=== PATIENT | female | born 1950 | race Hispanic/Latino ===

== ENCOUNTER 2020-06-26 11:14 | Inpatient (IN) | payer MEDICARE, BC, OTHER ==
[2020-06-26] VITALS (13 sets, daily range): BP systolic 100–152; BP diastolic 46–71
[~2020-06-26] VITALS: Ht 162.6 cm; Wt 66.2 kg
[~2020-06-26 11:14] MED LIST: Z.0.AZOR 10-40 MG1 E; Z.0.JANUMET 50-1,01; Z.0.METOPROLOL SUCC5; Z.0.PHENERGAN25 M1; Z.0.VICTOZA 2-0.6 MG
[2020-06-26 11:52] LABS: BASOPHILS % 0.1 % (0.0-1.0); LYMPHOCYTES # (AUTO) 0.5 (1.0-3.2); LYMPHOCYTES % 5.6 % (18.0-39.1); MEAN CORPUSCULAR HGB CONC 31.3 g/dL (31-35); MONOCYTES # (AUTO) 0.4 (0.2-0.8); MONOCYTES % 4.1 % (4.4-11.3); NEUTROPHILS # (AUTO) 7.8 (2.1-6.9); NEUTROPHILS % 89.6 % (38.7-80.0); PLATELET COUNT 168 x10e3/uL (140-360); RED CELL DISTRIBUTION WIDTH 17.3 % (11.7-14.4)
[2020-06-26 11:57] LABS: HEMATOCRIT 12.8 % (34.2-44.1)
[2020-06-26] MEDS ORDERED: SODIUM CHLORIDE 0.9% 250ML 250 ML IV ONE (12:00)
[2020-06-26] MEDS ORDERED: FUROSEMIDE INJ 10 MG/ML 2 ML VIAL IV PRN (12:00)
[2020-06-26] MEDS ORDERED: OCTREOTIDE ACETATE 0.05 MG/ML AMP IV STA (12:00)
--- OUTSIDE RECORDS SUMMARY | 2020-06-26 12:11 | XMS REPORT | Continuity of Care Document ---
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 Ordering Clinician Indication Dosage Frequency Signature (SIG) Comments Components Source sitaGLIPtin-metformin (JANUMET) 50-1,000 mg per tablet 2017-04-14 17:07:24 Yes 1{tbl} Q.5D Take 1 tablet by mouth 2 (two) times a d ay with meals. Binh Langley insulin GLARGINE (LANTUS) 100 unit/mL injection (vial) 2017-04-14 17:07:24 Yes 16U QD Inject 16 Units under the skin nightly. Binh Langley aspirin (ECOTRIN) 81 MG enteric coated tablet 2017-04-14 17:07:2 4 Yes 81mg Q48H Take 81 mg by mouth every other day. Binh Langley Procedures This patient has no known procedures. Plan of Care Planned Activity Planned Date Details Comments Source Future Scheduled Test 2020-06-22 00:00:00 INFLUENZA VACCINE [code = INFLUENZA VACCINE] [facility] Scheduled Test 2013 00:00:00 65+ PNEUMOCOCCAL V ACCINE (1 of 2 - PCV13) [code = 65+ PNEUMOCOCCAL VACCINE (1 of 2 - PCV13)] [facility] Future Scheduled Test 1998 00:00:00 BREAST CANCER SCRE ENING [code = BREAST CANCER SCREENING] [facility] Future Scheduled Test 1998 00:00:00 COLONOSCOPY SCREEN ING [code = COLONOSCOPY SCREENING] [facility] Scheduled Test 1998 00:00:00 SHINGLES VACCINES (#1) [code = SHINGLES VACCINES (#1)] Binh Langley Results This patient has no known results.
--- OUTSIDE RECORDS SUMMARY | 2020-06-26 12:11 | XMS REPORT | Clinical Summary ---
Author Author [facility] Organization [facility] Address Unknown Phone Unavailable Care Team Providers Care Claim Technician Name Role Phone Valentine Dunbar MD PCP Allergies No Known Allergies Medications End Date Status Medication Sig Dispensed Refills Start Date Active sitaGLIPtin-metformin Take 1 tablet 0 (JANUMET) 50-1,000 mg per by mouth 2 tablet (two) times a day with meals. Active insulin GLARGINE (LANTUS) Inject 16 0 100 unit/mL injection Units under (vial) the skin nightly. Active aspirin (ECOTRIN) 81 MG Take 81 mg by 0 enteric coated tablet mouth every other day. Active Problems Problem Noted Date Hypertensive urgency 04/09/2017 Hypertensive urgency, malignant 04/08/2017 Social History Date Tobacco Use Types Packs/Day Years Used Never Smoker Drinks/Week oz/Week Comments Alcohol Use No Sex Assigned at Date Recorded Not on file Industry Job Start Date Occupation Not on file Not on file Not on file Travel End Travel History Travel Start No recent travel history available. Last Filed Vital Signs Not on file Plan of Treatment Health Maintenance Due Date Last Done Comments BREAST CANCER SCREENING 1998 COLONOSCOPY SCREENING 1998 SHINGLES VACCINES (#1) 1998 65+ PNEUMOCOCCAL VACCINE 2013 (1 of 2 - PCV13) INFLUENZA VACCINE 06/22/2020 Results Not on fileafter 06/26/2019 Insurance Type Payer Benefit Subscriber ID Effective Phone Address Plan / Dates Group Medicare MEDICARE MEDICARE xxxxxxxxxx 2013- [place], PART A AND Present [place] B PPO BCBS BCBS xxxxxxxxxxxx 2014- CHOICE Present PPO/AMANDA BLANTON PPO [id number] Advance Directives For more information, please contact: [phone] 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
[2020-06-26 12:14] LABS: CLARITY,URINE SL CLOUDY (CLEAR); COLOR,URINE YELLOW (YELLOW); LEUKOCYTE ESTERASE ,URINE NEGATIVE (NEGATIVE); NITRITE,URINE NEGATIVE (NEGATIVE)
[2020-06-26 12:15] LABS: BACTERIA,URINE RARE /HPF; BILIRUBIN,URINE NEGATIVE (NEGATIVE); EPITHELIAL CELLS,URINE FEW /LPF; KETONES,URINE TRACE (NEGATIVE); PROTEIN,URINE DIPSTICK >=300 (NEGATIVE); RBC,URINE 0-5 /HPF (0-5); URINE UROBILINOGEN 0.2 mg/dL (0.2 - 1); WBC,URINE (MAN) 0-5 /HPF (0-5)
[2020-06-26 12:15] LABS: INR 1.17; PROTHROMBIN TIME 15.6 seconds (11.9-14.5)
[2020-06-26 12:16] LABS: PARTIAL THROMBOPLASTIN TIME 41.3 seconds (23.8-35.5)
--- NOTE | 2020-06-26 12:26 | Diagnostic Imaging Report ---
EXAMINATION: CHEST SINGLE (PORTABLE) INDICATION: GI bleed, weakness COMPARISON: None FINDINGS: LINES/TUBES:EKG leads overlie the chest. LUNGS:The lungs are moderately inflated. There is perihilar fullness and indistinctness of the pulmonary vasculature. No focal consolidation or pulmonary edema. PLEURA:No pleural effusion or pneumothorax. MEDIASTINUM:The heart is enlarged. Atherosclerotic calcifications of the thoracic aorta. BONES/SOFT TISSUES:No acute osseous injury. ABDOMEN:No free air under the diaphragm. IMPRESSION: Cardiomegaly and central pulmonary vascular congestion. Signed by: Rosi Tellez MD on 06/26/2020 12:23 PM
[2020-06-26 12:30] LABS: ALBUMIN 2.6 g/dL (3.5-5.0); ALBUMIN/GLOBULIN RATIO 0.9 (0.8-2.0); ANION GAP 22.3 mmol/L (8-16); CALCIUM 8.1 mg/dL (8.4-10.2); CREATININE, SERUM 4.14 mg/dL (0.57-1.11)
[2020-06-26] MEDS ORDERED: PANTOPRAZOLE 40 MG 10ML VIAL IV ONE (12:30)
[2020-06-26 12:36] LABS: CREATINE KINASE MB 1.9 ng/mL (0-5.0)
[2020-06-26 12:40] LABS: POTASSIUM 6.3 mmol/L (3.5-5.1)
[2020-06-26] MEDS: OCTREOTIDE ACETATE 500 MCG in SODIUM CHLORIDE 0.9% 250ML 249 ML IV SCH ×2 (12:41→22:31)
--- NOTE | 2020-06-26 12:42 | Emergency Department Note ---
History of Present Illnes History of Present Illness Chief Complaint: Abdominal Complaints History of Present Illness This is a 69 year old female WEAK X ONE DAY. EMS REPORTS STOOL ALL OVER THE HOUSE. PT IS ON BLOOD THINNERS AND BLOOD NOTED IN TOILET. 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 Any updates have been documented here. Past Medical History Recent Fever: No Clinical Suspicion of Infectio: No New/Unexplained Change in Ment: No Past Medical History: Hypertension, Diabetes Social History Smoking Cessation: Never Smoker Counseling Performed: No Alcohol Use: None Any Illegal Drug Use: No TB Exposure/Symptoms: No Physically hurt or threatened: No Family History Family history of heart diseas: No Other Any Pre-Existing Lines (PICC,: No Review of Systems Review of Systems Constitutional: Reports no symptoms EENTM: Reports no symptoms Cardiovascular: Reports no symptoms Respiratory: Reports no symptoms Gastrointestinal: Reports as per HPI Genitourinary: Reports no symptoms Musculoskeletal: Reports no symptoms Integumentary: Reports no symptoms Neurological: Reports no symptoms Psychological: Reports no symptoms Endocrine: Reports no symptoms Hematological/Lymphatic: Reports no symptoms Physical Exam Related Data Allergies: Uncoded Allergies: NKDA (Allergy, Mild, 12/19/09) Triage Vital Signs Vital Signs Date Time Temp Pulse Resp B/P (MAP) Pulse Ox O2 Delivery O2 Flow Rate FiO2 06/26/20 11:16 97.5 104 18 168/93 100 Room Air 06/26/20 12:11 2.0 Vital signs reviewed: Yes Physical Exam CONSTITUTIONAL Constitutional: Present well-developed, Present well-nourished HENT HENT: Present normocephalic, Present atraumatic, Present oropharynx clear/moist, Present nose normal HENT L/R: Present left ext ear normal, Present right ext ear normal EYES Eyes: Reports PERRL, Reports conjunctivae normal NECK Neck: Present ROM normal PULMONARY Pulmonary: Present effort normal, Present breath sounds normal CARDIOVASCULAR Cardiovascular: Present regular rhythm, Present heart sounds normal, Present capillary refill normal, Present normal rate GASTROINTESTINAL Abdominal: Present soft, Present nontender, Present bowel sounds normal GENITOURINARY Genitourinary: Present exam deferred SKIN Skin: Present warm, Present pale MUSCULOSKELETAL Musculoskeletal: Present ROM normal NEUROLOGICAL Neurological: Present alert, Present oriented x 3, Present no gross motor or sensory deficits PSYCHOLOGICAL Psychological: Present mood/affect normal, Present judgement normal Results Laboratory Result Diagram: 06/26/20 1135 Laboratory Laboratory Tests Test 06/26/20 12:01 06/26/20 11:35 Urine Color Yellow (YELLOW) Urine Clarity Sl cloudy (CLEAR) Urine pH 5.5 (5 - 7) Urine Specific [place] 1.020 (1.010-1.025) Urine Protein >=300 (NEGATIVE) Urine Glucose (UA) Negative (NEGATIVE) Urine Ketones Trace (NEGATIVE) Urine Blood Negative (NEGATIVE) Urine Nitrite Negative (NEGATIVE) Urine Bilirubin Negative (NEGATIVE) Urine Urobilinogen 0.2 mg/dL (0.2 - 1) Urine Leukocyte Esterase Negative (NEGATIVE) Urine RBC 0-5 /HPF (0-5) Urine WBC 0-5 /HPF (0-5) Urine Epithelial Cells Few /LPF (NONE) Urine Bacteria Rare /HPF (NONE) White Blood Count 8.70 x10e3/uL (4.8-10.8) Red Blood Count 1.60 x10e6/uL (3.6-5.1) Hemoglobin 4.0 g/dL (12.0-16.0) Hematocrit 12.8 % (34.2-44.1) Mean Corpuscular Volume 80.0 fL (81-99) Mean Corpuscular Hemoglobin 25.0 pg (28-32) Mean Corpuscular Hemoglobin Concent 31.3 g/dL (31-35) Red Cell Distribution Width 17.3 % (11.7-14.4) Platelet Count 168 x10e3/uL (140-360) Neutrophils (%) (Auto) 89.6 % (38.7-80.0) Lymphocytes (%) (Auto) 5.6 % (18.0-39.1) Monocytes (%) (Auto) 4.1 % (4.4-11.3) Eosinophils (%) (Auto) 0.0 % (0.0-6.0) Basophils (%) (Auto) 0.1 % (0.0-1.0) Neutrophils # (Auto) 7.8 (2.1-6.9) Lymphocytes # (Auto) 0.5 (1.0-3.2) Monocytes # (Auto) 0.4 (0.2-0.8) Eosinophils # (Auto) 0.0 (0.0-0.4) Basophils # (Auto) 0.0 (0.0-0.1) Absolute Immature Granulocyte (auto 0.05 x10e3/uL (0-0.1) Prothrombin Time 15.6 seconds (11.9-14.5) Prothromb Time International Ratio 1.17 Activated Partial Thromboplast Time 41.3 seconds (23.8-35.5) Lab results reviewed: Yes Imaging Imaging results reviewed: Yes Procedures 12 Lead ECG Interpretation ECG Interpretation : ECG: ECG 1 Maitre D: Interpreted by ED physician Date: Jun 26, 2020 Time: 11:40 Rhythm: sinus rhythm Rate: normal (93) ST segments normal: Yes T waves normal: Yes Clinical Impression: non-specific ECG Critical Care Time Total Critical Care Time (min): 35 Critical care time exclusive o: separately billable procedures Critcal care necessary due to: circulatory failure Critcal care time spent by me: discussion w consultants, discussion w primary provider, evaluation patient response to tx, order/perform tx or interventions, order/review laboratory studies, order/review radiographic studies, re- evaluation of patient condition Assessment & Plan Medical Decision Making MDM REPORTED GI BLEED - CHECK CBC, CHEM, PT/PTT, ECG, CARDIACS - EVAL ANEMIA, ELECTROLYTE ABNL, RENAL INSUFF, COAGULOPATHY, STEMI/NSTEMI Reassessment Reassessment IVF RESUSCITATION, PROTONIX, OCTREOTIDE ADMIT TO [facility], SPOKE WITH DR Levi BARRY ALSO CHEM'S WITH ARF, HYPERKALEMIA, ACIDOSIS - CALCIUM/BICARB/INSULIN/GLUCOSE ORDERED , BICARB DRIP ORDERED. I SPOKE WITH DR Jenise ADDISON WHO WANTS IR TO PLACE HD CATH FOR EMERGENT HD Assessment & Plan Final Impression: (1) GI bleed (2) Renal failure (3) Hyperkalemia Depart Disposition: ADMITTED Last Vital Signs Date Time Temp Pulse Resp B/P (MAP) Pulse Ox O2 Delivery O2 Flow Rate FiO2 8/5/20 12:11 92 22 112/55 100 Nasal Cannula 2.0 06/26/20 11:46 98.7 Home Meds Reported Medications Liraglutide (Victoza 2-Robert) 0.6 Mg/0.1 Ml Pen.injctr, HS 08/09/11 Sitagliptin Phos/Metformin Hcl (Janumet 50-1,000 Mg Tablet) 1 Each Tablet, BID 08/09/11 Promethazine Hcl (Phenergan) 25 Mg Tablet, PRN 08/09/11 Metoprolol Succinate (Metoprolol Succinate) 50 Mg Tab.sr.24h, BID 08/09/11 Amlodipine Bes/Olmesartan Med (Amanda 10-40 Mg Tablet) 1 Each Tablet, QD 08/09/11 Medications in the ED Pantoprazole Sodium 80 mg ONCE ONCE IV Last administered on 06/26/20at 12:31; Admin Dose 80 MG; Start 06/26/20 at 12:30; Stop 06/26/20 at 12:31; Status DC Octreotide Acetate 0.05 mg ONCE STAT IV Last administered on 06/26/20at 12:32; Admin Dose 0.05 MG; Start 06/26/20 at 12:00; Stop 06/26/20 at 12:03; Status DC Octreotide Acetate 500 mcg/ Sodium Chloride 250 ml @ 25 mls/hr Q10H IV ; Start 06/26/20 at 12:00; Stop 07/26/20 at 11:59 Sodium Chloride 250 ml @ 0 mls/hr ONCE ONCE IV ; Start 06/26/20 at 12:00; Stop 06/26/20 at 12:03; Status DC Furosemide 20 mg UD PRN IV SHORTNESS OF BREATH; Start 06/26/20 at 12:00; Stop 07/26/20 at 11:59 Pantoprazole Sodium 40 mg Q12HR IV ; Start 06/26/20 at 21:00; Stop 07/26/20 at 20:59; Status LUCY HERNANDEZ MD Jun 26, 2020 12:42
[2020-06-26] MEDS ORDERED: DEXTROSE 50% SYRINGE 50 ML IV STA (12:43)
[2020-06-26] MEDS ORDERED: SODIUM BICARBONATE 8.4% INJ 50 ML SYR IV STA (12:43)
--- OUTSIDE RECORDS SUMMARY | 2020-06-26 12:43 | XMS REPORT | Clinical Summary ---
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
--- OUTSIDE RECORDS SUMMARY | 2020-06-26 12:43 | XMS REPORT | Continuity of Care Document ---
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 [place] [employer] aspirin (ECOTRIN) 81 MG enteric coated tablet 2017-04-14 17:07:2 4 Yes 81mg Q48H Take 81 mg by mouth every other day. Binh Langley Procedures This patient has no known procedures. Plan of Care Planned Activity Planned Date Details Comments Source Future Scheduled Test 2020-06-22 00:00:00 INFLUENZA VACCINE [code = INFLUENZA VACCINE] [facility] Future Scheduled Test 2013 00:00:00 65+ PNEUMOCOCCAL V ACCINE (1 of 2 - PCV13) [code = 65+ PNEUMOCOCCAL VACCINE (1 of 2 - PCV13)] [facility] Future Scheduled Test 1998 00:00:00 BREAST CANCER SCRE ENING [code = BREAST CANCER SCREENING] [facility] Future Scheduled Test 1998 00:00:00 COLONOSCOPY SCREEN ING [code = COLONOSCOPY SCREENING] [facility] Future Scheduled Test 1998 00:00:00 SHINGLES VACCINES (#1) [code = SHINGLES VACCINES (#1)] [facility] Results Test Description Test Time Test Comments Results Result Comments Source CHEST SINGLE (PORTABLE) 2020-06-26 12:21:00 [place] [address] Patient Name: RICARDO MARTIN MR #: [id number] : 1950 Age/Sex: 69/F Req #: [id number] Adm Physician: Ordered by: LUCY TREVINO MD Report #: [id number] Location: ER Room/Bed: Procedure: [id number] DX/CHEST SINGLE (PORTABLE) Exam Date: Exam Time: REPORT STATUS: Signed EXAMINATION: CHEST SINGLE (PORTABLE) INDICATION: GI bleed, weakness COMPARISON: None FINDINGS: LINES/TUBES:EKG leads overlie the chest. LUNGS:The lungs are moderately inflated. There is perihilar fullness and indistinctness of the pulmonary vasculature. No focal consolidation or pulmonary edema. PLEURA:No pleural effusion or pneumothorax. MEDIASTINUM:The heart is enlarged. Atherosclerotic calcifications of the thoracic aorta. BONES/SOFT TISSUES:No acute osseous injury. ABDOMEN:No free air under the diaphragm. IMPRESSION: Cardiomegaly and central pulmonary vascular congestion. Signed by: Amy Grier MD on 06/26/2020 12:23 PM Dictated By: AMY GRIER MD 1223 Transcribed By: RODOLFO on 06/26/20 1223 COPY TO: LUCY TREVINO MD
[2020-06-26] MEDS ORDERED: INSULIN REGULAR, HUMAN 100 UNIT/1 ML 3ML VIAL IV ONE (12:45)
[2020-06-26] MEDS ORDERED: ONDANSETRON HCL INJ 2MG/ML 2ML 2 MG/ML VIAL IV STA (12:46)
[2020-06-26] MEDS ORDERED: ONDANSETRON HCL INJ 2MG/ML 2ML 2 MG/ML VIAL IV PRN (13:00)
[2020-06-26] MEDS ORDERED: CALCIUM GLUCONATE 10% INJ 4.65 MEQ in SODIUM CHLORIDE 0.9% 50ML 50 ML IV ONE ×2 (13:15→18:45)
[2020-06-26] MEDS ORDERED: DEXTROSE IV ONE (14:00)
[2020-06-26] MEDS ORDERED: LACTATED RINGERS IV ONE (14:00)
[2020-06-26] MEDS ORDERED: SODIUM BICARBONATE 8.4% IV ONE (14:00)
--- NOTE | 2020-06-26 14:30 | NUR ---
Dr Vieira spoke to patient regarding dialysis, patient agreed to dialysis and insertion of temporary dialysis catheter. Per MD, hold off on blood until dialysis is started.
[2020-06-26] MEDS ORDERED: SODIUM CHLORIDE 0.9% 250ML 250 ML ONE ×2 (16:47→22:22)
--- NOTE | 2020-06-26 17:33 | Diagnostic Imaging Report ---
Examination: Single AP view of the chest. COMPARISON: 06/26/2020 INDICATION: Line placement DISCUSSION: Lines/tubes: Right IJ central venous catheter with tip over the SVC. Lungs: Pulmonary venous congestion, increased. Pleura: No pleural effusion or pneumothorax. Heart and mediastinum: Cardiomegaly. Bones and soft tissues: No acute bony abnormalities. IMPRESSION: 1. Cardiomegaly with pulmonary venous congestion, increased 2. Right IJ catheter with tip over the low SVC. Signed by: Dr. Deepak Sparrow M.D. on 06/26/2020 5:29 PM
[2020-06-26 17:55] LABS: CREATINE KINASE MB 2.6 ng/mL (0-5.0)
--- NOTE | 2020-06-26 18:04 | Operative Report ---
DATE OF PROCEDURE: SURGEON: Donald Levy MD PROCEDURE: Trialysis catheter placement under ultrasound guidance. PREOPERATIVE DIAGNOSIS: Acute renal failure. POSTOPERATIVE DIAGNOSIS: Acute renal failure. CONSENT: Consent was obtained from the patient. MEDICATIONS: 1% lidocaine for local anesthesia. DESCRIPTION OF PROCEDURE: The patient was placed in a supine position. The right neck was prepped sterilely with chlorhexidine. 1% lidocaine was used to anesthetize the area between the heads of the sternocleidomastoid. A full length sterile drape, sterile gown, and sterile gloves were used. A 16-gauge needle was used to cannulate the right internal jugular vein under direct visualization. A wire was then passed through the needle. A series of dilators were used to open the skin. A Trialysis catheter was placed over the wire by the Seldinger technique. All the ports flushed. COMPLICATIONS: None. ESTIMATED BLOOD LOSS: None. Donald Levy MD [facility] /[id number]
[2020-06-26 18:12] LABS: BASOPHILS % 0.1 % (0.0-1.0); EOSINOPHILS % 0.1 % (0.0-6.0); LYMPHOCYTES # (AUTO) 0.7 (1.0-3.2); LYMPHOCYTES % 7.8 % (18.0-39.1); MEAN CORPUSCULAR HEMOGLOBIN 23.9 pg (28-32); MEAN CORPUSCULAR HGB CONC 28.1 g/dL (31-35); MEAN CORPUSCULAR VOLUME 85.1 fL (81-99); MONOCYTES # (AUTO) 0.6 (0.2-0.8); MONOCYTES % 7.1 % (4.4-11.3); NEUTROPHILS # (AUTO) 7.7 (2.1-6.9); NEUTROPHILS % 84.3 % (38.7-80.0); PLATELET COUNT 136 x10e3/uL (140-360); RED BLOOD COUNT 1.34 x10e6/uL (3.6-5.1); RED CELL DISTRIBUTION WIDTH 17.8 % (11.7-14.4)
[2020-06-26 18:14] LABS: HEMATOCRIT 11.4 % (34.2-44.1); HEMOGLOBIN 3.2 g/dL (12.0-16.0)
--- NOTE | 2020-06-26 18:15 | NUR ---
Blood pressure called to Dr Vieira, per , angie to wait until dialysis for blood administration. Reinforced current hemoglobin reinforced with MD and potassium level, new orders received.
[2020-06-26] MEDS ORDERED: SODIUM BICARBONATE 8.4% 150 ML in DEXTROSE 5% 1,000 ML IV SCH (18:30)
--- NOTE | 2020-06-26 18:30 | NUR ---
CBC results called to Dr Vieira, blood started at this time.
[2020-06-26] MEDS ORDERED: DEXTROSE 50% SYRINGE 50 ML IV SCH (18:45)
[2020-06-26] MEDS ORDERED: INSULIN REGULAR, HUMAN 100 UNIT/1 ML 3ML VIAL IV SCH (18:45)
--- NOTE | 2020-06-26 18:45 | NUR ---
Temperature of 100.1 noted after initial 15 minutes of blood administration. Dr Levy notified. Blood stopped, bag and tubing sent to lab. Fluids running at this time. Patient shows no s/s distress or pain, no SOB, no itching and no hives.
[2020-06-26] MEDS ORDERED: SODIUM CHLORIDE 0.9% 1000ML 1,000 ML ONE (18:58)
[2020-06-26] MEDS ORDERED: SODIUM CHLORIDE 0.9% 1000ML 2,000 ML ONE (19:17)
[2020-06-26] MEDS ORDERED: HEPARIN SOD (PORCINE) 1000 UNIT/ML SDV IV PRN (19:30)
[2020-06-26] MEDS ORDERED: SODIUM CHLORIDE 0.9% 1000ML 2,000 ML IV PRN (19:30)
[2020-06-26] MEDS ORDERED: ACETAMINOPHEN 325 MG TAB PO SCH (20:15)
[2020-06-26] MEDS ORDERED: DIPHENHYDRAMINE HCL 25 MG CAP PO SCH (20:15)
[2020-06-26] MEDS ORDERED: DIPHENHYDRAMINE HCL INJ 50 MG/ML VIAL IV PRN (20:30)
[2020-06-26] MEDS ORDERED: ACETAMINOPHEN 325 MG TAB PO PRN (20:30)
[2020-06-26] MEDS ORDERED: HYDROCORTISONE SOD SUCCINATE 100 MG VIAL IV SCH (21:00)
[2020-06-26] MEDS: SODIUM BICARBONATE 8.4% 150 ML in DEXTROSE 5% 1,000 ML IV SCH (21:16)
[2020-06-26 22:18] LABS: CREATINE KINASE MB 2.7 ng/mL (0-5.0)
[2020-06-26 22:20] LABS: FERRITIN 53.32 ng/mL (4.63-204.00)
[2020-06-26] MEDS ORDERED: OCTREOTIDE ACETATE 1 ML ONE (22:21)
[2020-06-26] MEDS: PANTOPRAZOLE 40 MG 10ML VIAL IV SCH (22:30)
[2020-06-26] MEDS ORDERED: CYANOCOBALAMIN INJ 1,000 MCG/ML VIAL IM ONE (22:45)
[2020-06-27] VITALS (26 sets, daily range): BP systolic 99–223; BP diastolic 52–106
--- NOTE | 2020-06-27 00:10 | Consultation ---
DATE OF CONSULTATION: 06/26/2020 LOCATION: ICU. HISTORY: Predominantly from chart, electronic records, and ER communication. This is a 69-year-old lady, very poor historian, currently lying supine, she looks very ill, tired, looks pale. She is not in any respiratory distress, but having a lot of dry heaves. I asked several questions, she does not remember her PCP, she does not give me any history whether she is having any black stools, hematemesis or melena, she denies being short of breath, she denies any abdominal pain, she does admit she has diabetes, she does not remember what medication she takes, denies any cardiac history or any kidney disorder. On review of records, the patient does take sitagliptin, metformin at home. She also on promethazine, metoprolol, Victoza, and amlodipine, Olmesartan at home. Now, according to the patient's friend, the patient has not been eating or drinking for the last several days, so unclear whether she has taken any of these medications. Her Renal has been consulted because of significantly abnormal labs with life-threatening hyperkalemia. LABORATORY DATA: Most recent labs shows CBC; white count 8.7, hemoglobin 4, platelets of 168. Chemistry shows sodium of 137, potassium 6.3, chloride 107, bicarbonate 14, BUN 76 and creatinine 4.14, glucose 145, calcium 8.1, anion gap is 22.3, total bilirubin 0.4. LFTs normal. Troponin I 0.032. Urinalysis specific gravity 1.020, dipstick positive protein, 0-5 rbc, 0-5 wbc count. Coronavirus test is pending. She had a chest x-ray done. Please see official report. SOCIAL HISTORY: The patient denies smoking or alcohol use. FAMILY HISTORY: Significant for diabetes. PHYSICAL EXAMINATION: GENERAL: Awake, alert, and oriented, lying supine, appears quite weak and tired and as described above. VITAL SIGNS: Blood pressure 126/53, pulse rate 93, afebrile. Oxygen saturation 92% on room air. HEAD AND NECK: Cornea clear. Mucosa dry. Neck veins flat. LUNGS: Relatively clear. HEART: S1 and S2 audible. ABDOMEN: Soft and nontender. EXTREMITIES: Lower extremities, no edema. IMPRESSION: Severe metabolic acidosis, elevated anion gap. Blood sugar 145. Therapeutically, the patient on olmesartan as well as Januvia and metformin at home, all of which could give rise to her condition here. Diabetic ketoacidosis should be ruled out. Has most likely gastrointestinal bleed, hemolysis extremely unlikely giving LFTs. I will consult GI. Acute kidney injury, most likely due to dehydration and GI bleed and drop in hemoglobin. PLAN: To give dextrose insulin, calcium, starting IV bicarbonate and obtain serum ketone, stat. We will obtain lactic acid. Start IV bicarbonate. Transfuse 3 units of packed RBC with dialysis. Once dialysis catheter was placed, dialysis nurse notified. Discussed with bedside RN. Please see orders. MD ALISA [facility]/MOD[facility] /[id number]
[2020-06-27 02:15] LABS: BASOPHILS % 0.1 % (0.0-1.0); EOSINOPHILS % 0.3 % (0.0-6.0); LYMPHOCYTES % 8.7 % (18.0-39.1); MEAN CORPUSCULAR HEMOGLOBIN 27.1 pg (28-32); MEAN CORPUSCULAR HGB CONC 33.1 g/dL (31-35); MEAN CORPUSCULAR VOLUME 81.9 fL (81-99); MONOCYTES # (AUTO) 0.7 (0.2-0.8); MONOCYTES % 6.4 % (4.4-11.3); NEUTROPHILS # (AUTO) 9.3 (2.1-6.9); NEUTROPHILS % 83.8 % (38.7-80.0); PLATELET COUNT 126 x10e3/uL (140-360); RED CELL DISTRIBUTION WIDTH 15.9 % (11.7-14.4)
[2020-06-27 02:25] LABS: HEMATOCRIT 17.2 % (34.2-44.1); HEMOGLOBIN 5.7 g/dL (12.0-16.0)
[2020-06-27 02:32] LABS: ALBUMIN 2.2 g/dL (3.5-5.0); ALBUMIN/GLOBULIN RATIO 0.9 (0.8-2.0); ANION GAP 20.1 mmol/L (8-16); CREATININE, SERUM 2.41 mg/dL (0.57-1.11); POTASSIUM 4.1 mmol/L (3.5-5.1)
[2020-06-27 02:38] LABS: CREATINE KINASE MB 2.1 ng/mL (0-5.0)
[2020-06-27 02:50] LABS: MAGNESIUM 1.7 MG/DL (1.3-2.1)
--- NOTE | 2020-06-27 04:06 | History and Physical ---
DATE OF SERVICE: 06/26/2020. PRIMARY CARE PHYSICIAN: None listed. CONSULTING PHYSICIANS: 1. Dr. Anup Vieira with Nephrology. 2. Dr. Donald Levy with Pulmonology/Critical Care Medicine. 3. Dr. Escobar Suazo with Gastroenterology. Per emergency department records. CHIEF COMPLAINT: Abdominal pain. HISTORY OF PRESENT ILLNESS: The patient is a 69-year-old female, who presented to the emergency department with reports from emergency medical services of "stool all over the house" being on blood thinners with blood noted in the toilet, and a very poor historian. The patient denied any shortness of breath or abdominal pain today. There are reports of poor oral intake, past few days at home, not eating or drinking. She admitted with a very low hemoglobin of 4.0 and had a fever with the first of 2 units of PRBCs per the [employer] COMPOSITE TECHNICIAN. A right Trialysis catheter was placed by Dr. Levy, and she underwent hemodialysis around 11 p.m. due to severe metabolic acidosis and life-threatening hyperkalemia of 6.3. She is currently seen in ICU, bed 190. PAST MEDICAL HISTORY: Hypertension and diabetes. PAST SURGICAL HISTORY: Noncontributory. FAMILY HISTORY: Diabetes mellitus. SOCIAL HISTORY: Denies previous use of tobacco, alcohol, or illicit drugs. ALLERGIES: NO KNOWN ALLERGIES. HOME MEDICATIONS: 1. Sitagliptin. 2. Metformin. 3. Promethazine. 4. Metoprolol. 5. Victoza. 6. Amlodipine. 7. Olmesartan. REVIEW OF SYSTEMS: Unable to adequately obtain review of systems given the patient's confusion. PHYSICAL EXAMINATION: VITAL SIGNS: Temperature 98.6, heart rate 89, blood pressure 120/62, respirations 25, oxygen saturation 95%. GENERAL: Supine in bed. Appears ill, pale. LUNGS: Respirations nonlabored. Clear to auscultation. Respiratory pattern, even and nonlabored. Currently, no supplemental oxygen. HEENT: Dry mucous membranes. Eyes, clear, anicteric. NECK: Supple. CARDIOVASCULAR: Regular rate and rhythm without murmur. Shows a right Trialysis catheter. ABDOMEN: Bowel sounds positive. Soft, nontender. EXTREMITIES: With no pitting edema. No clubbing, cyanosis, or obvious signs of DVT. NEUROLOGIC: The patient is confused. Nonfocal. LABORATORY DATA: Most recent CBC results, WBC 9.07, hemoglobin 3.2 (4.0), hematocrit 11.4 (12.8), platelets 136. PT 15.6, INR 1.17, PTT 41.3. Sodium 137, potassium 6.1 (6.3), chloride 107, CO2 14, anion gap 22.3, BUN 76, creatinine 4.14, estimated GFR of 11, glucose 145, calcium 8.1, total bilirubin 0.4, AST 8, ALT 8, alkaline phosphatase 62. Troponin I 0.032, then subsequently 0.145. Total protein 5.6, albumin 2.6, folate pending. Iron 12, TIBC 302, percent saturation 4, transferrin 216, ferritin 53.32. Lactic acid 1.7. Lactate dehydrogenase 151. Final troponin I was 0.324. Vitamin B12 326. Urinalysis showed trace amount of ketones, negative for nitrites, negative for leukocyte esterase. Coronavirus PCR has been collected on 06/26 and final results are pending. Initial chest x-ray showed cardiomegaly and central pulmonary venous congestion. Subsequent chest x-ray official report reads a right IJ catheter with tip over the low superior vena cava. Cardiomegaly with pulmonary vascular congestion, increased. PROCEDURES: Trialysis catheter placement. ASSESSMENT/PLAN: 1. Gastrointestinal bleed with severe anemia. Gastroenterology has been consulted and following. Three units PRBCs were ordered, 2 were given with dialysis. Octreotide and Protonix started. Monitor H and H. 2. Acute kidney injury/acute renal failure with life-threatening hyperkalemia. Potassium level was 6.1. The patient received hemodialysis with no fluid removed. She was given 1 amp of D50 6 units regular insulin IV and 1 amp of calcium gluconate for the hyperkalemia. Continue to monitor potassium level closely as well as renal labs. 3. Severe metabolic acidosis. Sodium bicarbonate added to fluids. The patient received hemodialysis. Nephrology following closely. 4. Uncontrolled type 2 diabetes mellitus with hyperglycemia and elevated anion gap, rule out diabetic ketoacidosis. Hemoglobin A1c on 08/21/2009 was 6.3%. We will get a hemoglobin A1c in the morning. Monitor fingerstick blood glucose levels. Hold metformin and any nephrotoxic agents for now. Currently n.p.o. 5. Controlled hypertension. Blood pressure 120/62 earlier this morning. Most recent blood pressure 142/60. 6. Prophylaxis, octreotide, Protonix and SCDs. Billing code 33663. Time spent 60 minutes. Dictated by Naga Toribio, P[employer]OT MD [facility]/MODL /[id number]
[2020-06-27] MEDS ORDERED: SODIUM CHLORIDE 0.9% 250ML 250 ML IV ONE (07:55)
[2020-06-27] MEDS ORDERED: DIPHENHYDRAMINE HCL INJ 50 MG/ML VIAL IV ONE (07:55)
[2020-06-27] MEDS ORDERED: ACETAMINOPHEN 325 MG TAB PO ONE (07:55)
[2020-06-27] MEDS: OCTREOTIDE ACETATE 500 MCG in SODIUM CHLORIDE 0.9% 250ML 249 ML IV SCH ×2 (08:40→17:34)
[2020-06-27] MEDS: IRON SUCROSE 100 MG in SODIUM CHLORIDE 0.9% 100 ML 100 ML IV SCH (08:40)
[2020-06-27] MEDS: CYANOCOBALAMIN INJ 1,000 MCG/ML VIAL IM SCH (08:40)
[2020-06-27] MEDS: PANTOPRAZOLE 40 MG 10ML VIAL IV SCH ×2 (08:40→21:33)
[2020-06-27] MEDS ORDERED: FAMOTIDINE INJ 20 MG in SODIUM CHLORIDE 0.9% 50ML 50 ML IV ONE (10:30)
[2020-06-27] MEDS ORDERED: DIPHENHYDRAMINE HCL INJ 25 MG in SODIUM CHLORIDE 0.9% 50ML 50 ML IV ONE (11:00)
[2020-06-27] MEDS ORDERED: DEXAMETHASONE PHOS 10MG INJ 20 MG in SODIUM CHLORIDE 0.9% 50ML 50 ML IV ONE (11:15)
[2020-06-27] MEDS ORDERED: FUROSEMIDE INJ 10 MG/ML 4 ML VIAL IV ONE (11:20)
[2020-06-27] MEDS ORDERED: IRON DEXTRAN INJ 50 MG in SODIUM CHLORIDE 0.9% 100 ML IV ONE (12:00)
--- NOTE | 2020-06-27 12:00 | NUR ---
Zamudio inserted per MD order, patient consented to procedure. 100cc urine in bag. Patient tolerated well.
[2020-06-27] MEDS ORDERED: IRON DEXTRAN INJ 500 MG in SODIUM CHLORIDE 0.9% 500ML 500 ML IV PRN (13:00)
[2020-06-27] MEDS: SODIUM BICARBONATE 8.4% 150 ML in DEXTROSE 5% 1,000 ML IV SCH (13:27)
--- NOTE | 2020-06-27 13:43 | Consultation ---
DATE OF CONSULTATION: Pulmonary Critical Care Consultation CHIEF COMPLAINT: Anemia, acute renal failure, and GI bleeding. HISTORY OF PRESENT ILLNESS: The patient is a 69-year-old woman. She has been on blood thinners at home. Apparently, she had some increased bowel movements, but does not recall any back tarry stools, hematemesis, or melena. She notes increased fatigue and tiredness. She felt some shortness of breath. She came to the emergency department and was found to have a hemoglobin of 4 along with a potassium of 6.3 and a creatinine of 4.41. She had a dialysis catheter placed and received packed red blood cells. She has some improvement, but still complains of fatigue. She does not complain of chest pain. PAST MEDICAL HISTORY: 1. Hypertension. 2. Diabetes. PAST SURGICAL HISTORY: Noncontributory. FAMILY HISTORY: History of diabetes. SOCIAL HISTORY: The patient is not a smoker or drinker. REVIEW OF SYSTEMS: The patient has no fevers. She has fatigue and dyspnea. She is not complaining of chest pain. She does not complain of abdominal pain. There is no nausea or vomiting. She has no leg swelling. PHYSICAL EXAMINATION: VITAL SIGNS: Blood pressure is 99/52 and saturation is 99% on 2 L. The pulse is 108. Respiratory rate is normal. HEENT: Shows no facial swelling or erythema. LYMPHATIC: Shows no submandibular, cervical, or supraclavicular adenopathy. CARDIAC: Reveals regular rate and rhythm with normal S1 and S2. LUNGS: Auscultation of lungs reveals rhonchorous breath sounds bilaterally. There is no wheezing. ABDOMEN: Soft and nontender. There is no rebound or guarding. EXTREMITIES: Shows no leg edema or calf tenderness. There is no cyanosis or clubbing. SKIN: Shows no rashes. NEUROLOGICAL: Shows no focal abnormalities. LABORATORY DATA: BUN to creatinine ratio is 33 to 2.41 and the carbon dioxide is 20. Other electrolytes are within normal limits and the albumin is 2.2. IMPRESSION: 1. Anemia secondary to chronic blood loss. 2. Gastrointestinal bleeding. 3. Acute renal failure. 4. Metabolic acidosis. 5. Thrombocytopenia. 6. Hyperkalemia. PLAN: 1. The patient will continue to receive blood products to increase her hemoglobin to above 7. 2. She will receive platelets, calcium, and FFP as needed. 3. Continue dialysis. 4. The patient is awaiting GI evaluation with colonoscopy and endoscopy. 5. Continue to monitor electrolytes and bicarbonate levels. MD TARYN Ortiz/[place] /[id number]
--- NOTE | 2020-06-27 14:39 | NUR ---
PT FRIEND FEDERICO HERNÁNDEZ [phone], IS EMERGENCY CONTACT NOTIFIED ADMISSIONS PRINTING NEW FACESHEET TO TAKE TO CHART
--- NOTE | 2020-06-27 16:19 | NUR ---
Nutrition Intervention Note RD Recommendation(s) for Physician: - As feasible, ADAT to goal of Renal, 1800 ADA, GI Soft - When diet advanced, recommend Nepro BID Plan of Care: RD following, monitoring for tolerance and adequacy, diet and ONS rec's Nutrition reason for involvement: Nutrition Risk Trigger RD Assessment 06/27: 69 YOF admitted for GIB and diarrhea, assessed today per MST3 screen. Pt sleeping on HD at time of visit, appears well nourished. Spoke with RN on unit, HD yesterday and plan for scope tomorrow. Chart reviewed. Will continue to monitor. Principal Problems/Diagnoses: GIB PMH: HTN, DM GI: LBM 06/27- diarrhea, bloody stool Skin: no PU Labs: 06/27: Na 140, K 4.1, BUN 33, Cr 2.41, Gluc 188, POC Gluc 202-209, A1C 4.8 Meds: lasix, zofran, vitamin B12, IV Fe, protonix, octreotide, Na bicarb Ht: 64 in Wt: 135.5 lb BMI: 23.3 kg/m2 IBW: 120 lb Malnutrition Evaluation (06/27/20) The patient does not meet criteria for a specified degree of malnutrition at this time. Will re-evaluate at follow-up as appropriate. Energy intake: <75% of estimated energy requirements for >3 days Weight loss: FAN Fat loss: none, bulging eye pads Muscle loss: none, shoulder round Supporting Evidence: Fluid accumulation: FAN Functional Status: FAN Nutrition Prescription (Diet Order): Estimated Nutritional Needs: 8928-0573 calories/day (25-28 kcal/kg CBW) 74-92 g protein/day (1.2-1.5 g pro/kg CBW) Diet Adequacy: Not meeting calorie needs, Not meeting protein needs Diet Tolerance: N/A Diet Education Needs Assessment: Diet education indicated, but patient not appropriate for education at this time. Nutrition Care Level: mod Nutrition Diagnosis: Inadequate energy and protein intake related to current medical condition (GIB) as evidenced by reported poor intake PRODUCTION INTERN and currently NPO. Goal: Patient will meet 75-100% of estimated needs by follow up Progress: N/A Interventions: -Fiber, mineral, CHO-modified diet, Commercial beverage, Multivitamin/mineral supplement therapy, Collaboration with other providers, recommend modifications Monitoring/Evaluation: -Total energy intake, Total protein intake, Modified diet, Liquid supplement, Weight change Signed: Olga Lidia Rosado RD, LD, [facility]
[2020-06-27] MEDS: METOPROLOL TARTRATE INJ 1 MG/ML VIAL IV PRN (16:34)
--- NOTE | 2020-06-27 17:09 | Consultation ---
DATE OF CONSULTATION: 06/27/2020 Cardiology Consultation REQUESTING PHYSICIAN: Manolo Walton MD. REASON FOR CONSULTATION: Atrial fibrillation. HISTORY OF PRESENT ILLNESS: This is a 69-year-old woman with hypertension and diabetes, who presents with weakness. The patient reports that she has been dizzy for approximately 2 days. Notes she had been having bloody stools for approximately this period of time. She denies any chest pain, shortness of breath, palpitations, edema, or orthopnea. On evaluation in the ER, she was found to be anemic with a hemoglobin of 3.2. In addition, she was noted to have acute kidney injury with creatinine of 4.14 and hyperkalemia with potassium of 6.3. The patient was admitted and treated with IV fluid resuscitation, Protonix and octreotide. She was given 2 units of PRBCs and started on emergent hemodialysis. The patient was subsequently admitted to the ICU for further care. Overnight, she was noted to develop atrial fibrillation, for which Cardiology is consulted. REVIEW OF SYSTEMS: Negative except as per HPI. PAST MEDICAL HISTORY: Hypertension and diabetes mellitus. PAST SURGICAL HISTORY: Noncontributory. ALLERGIES: PLEASE SEE EMR. MEDICATIONS: Please see medication list. SOCIAL HISTORY: No tobacco, alcohol, or illicit drugs. FAMILY HISTORY: Noncontributory to current illness. PHYSICAL EXAMINATION: VITAL SIGNS: Temperature 98 degrees, pulse 104, respiratory rate 17, blood pressure 146/74, and oxygen saturation 99% on 2 L nasal cannula. GENERAL: Ill-appearing elderly woman, in no acute distress. HEENT: Normocephalic and atraumatic. Pupils are equal. No scleral icterus, however, pale. NECK: Supple. No thyromegaly or cervical lymphadenopathy. No carotid bruits. LUNGS: Clear to auscultation bilaterally. No wheezes or crackles. CARDIOVASCULAR: Irregularly irregular. No murmur. Normal S1 and S2. ABDOMEN: Soft and nontender. EXTREMITIES: No edema. NEUROLOGIC: Nonfocal exam. LABORATORY DATA: WBC 11.1, hemoglobin 5.7, hematocrit 17.2, and platelets 126. Sodium 140, potassium 4.1, chloride 104, CO2 20, BUN 32, and creatinine 2.41. Troponin 0.324. Chest x-ray, cardiomegaly with pulmonary venous congestion. IMPRESSION: 1. Atrial fibrillation. 2. Elevated troponin. 3. Acute anemia, likely secondary to gastrointestinal blood loss. 4. Hypertension. 5. Diabetes mellitus. 6. Acute kidney injury, improving. 7. Hyperkalemia, improving. RECOMMENDATIONS: Blood pressure is labile. Metoprolol as needed for rate control. Obtain echocardiogram. No anticoagulation is indicated at this time due to acute GI bleeding, can consider starting anticoagulation after GI evaluation has been completed. Elevated troponin is demand ischemia secondary to acute anemia as well as atrial fibrillation. No aspirin at this time given acute anemia. Ischemic evaluation once the patient has recovered from her current illness. Blood pressure is labile. We will monitor for now. Thank you for this consult. We will continue to follow. Ivy Grijalva MD ABS/MODL /[id number]
[2020-06-27] MEDS ORDERED: HYDRALAZINE HCL 20 MG/ML VIAL IV PRN (20:15)
[2020-06-27] MEDS ORDERED: SODIUM CHLORIDE 0.9% 250ML 250 ML ONE (22:09)
--- NOTE | 2020-06-27 23:27 | NUR ---
Contacted provider to get antihypertensive because patient was sustaining systolic over 190, provider started patient on hydralazine 10mg Q4 PRN. Administered one dose and rechecked BP after one hour and BP is sustaining 190. Contacted provider again and provider started patient on Amlodipine 10mg PO Daily.
[2020-06-28] VITALS (25 sets, daily range): BP systolic 136–200; BP diastolic 58–109
[2020-06-28] MEDS: AMLODIPINE BESYLATE 10 MG TAB PO SCH ×2 (00:04→08:25)
--- NOTE | 2020-06-28 03:26 | Progress Note ---
DATE: SUBJECTIVE: The patient is lying supine in bed. She has had complaints of fatigue and dyspnea. No complaints of chest pain or fever or abdominal pain or nausea or vomiting. No leg swelling. OBJECTIVE: VITAL SIGNS: Temperature 98.0, heart rate 104, blood pressure 146/74, respirations 17, oxygen saturation 99%, which was all earlier today. GENERAL: Supine, appears ill, pale. LUNGS: Respirations nonlabored. Clear to auscultation. She is on 3 L of oxygen via nasal cannula. HEENT: EOMI. Sclerae anicteric. NECK: Supple. CARDIOVASCULAR: Regular rate and rhythm without murmur. Right Trialysis catheter octreotide infusing at 50 mcg/hour and D5W with 3 amps of sodium bicarbonate infusing at 70 mL/hour. ABDOMEN: Bowel sounds positive. Soft, nontender. She has a Zamudio catheter with ashleigh urine. EXTREMITIES: No pitting edema. No clubbing, cyanosis noted. NEUROLOGIC: Mild confusion. Nonfocal. LABORATORY DATA: WBCs 11.11, hemoglobin 5.7, hematocrit 17.2, platelet count 126. Sodium 140, potassium 4.1, chloride 104, CO2 20, anion gap 20.1, BUN 33, creatinine 2.41, estimated GFR 20, glucose 188. Hemoglobin A1c 4.9%. Calcium 7.0, total bilirubin 2.0, AST 13, ALT 8, alkaline phosphatase 56. Creatine kinase 61, CK-MB 2.1, troponin I 0.28. Total protein is 4.7, albumin 2.2. TSH 0.338, ammonia level 53, phosphorus 4.0, magnesium 1.7. Fingerstick blood glucose 209, 202, 219. No new imaging studies. ASSESSMENT AND PLAN: 1. Gastrointestinal bleed with severe anemia and thrombocytopenia. Hemoglobin 5.7 (3.2), platelets 126 (136). The patient has had 5 units of PRBCs and 1 leukocyte reduced pheresis platelets. Gastroenterology following. Continue IV octreotide and Protonix. Blood products given during dialysis when able. 2. Acute kidney injury/acute renal failure, status post hyperkalemia. Potassium level 4.1 (6.1) hemodialysis per Nephrology. Continue to monitor renal function, potassium level. 3. Severe metabolic acidosis. Serum bicarbonate 20 (14) hemodialysis per Nephrology. Continue sodium bicarb drip. 4. Uncontrolled type 2 diabetes mellitus with hyperglycemia and elevated anion gap, rule out diabetic ketoacidosis. Hemoglobin A1c 4.9%. Clear liquid diet. Avoid nephrotoxic agents. 5. Controlled hypertension. Blood pressure 146/74. Monitor. 6. Prophylaxis, octreotide, Protonix, and SCDs. Billing code [id number]. Time spent 35 minutes. Dictated by Naga Toribio NP MD [facility]/MODL /[id number]
[2020-06-28] MEDS ORDERED: OCTREOTIDE ACETATE 2 ML ONE (05:18)
[2020-06-28 05:33] LABS: HEMATOCRIT 25.2 % (34.2-44.1); HEMOGLOBIN 8.5 g/dL (12.0-16.0); MEAN CORPUSCULAR HEMOGLOBIN 28.1 pg (28-32); MEAN CORPUSCULAR HGB CONC 33.7 g/dL (31-35); MEAN CORPUSCULAR VOLUME 83.4 fL (81-99); PLATELET COUNT 157 x10e3/uL (140-360); RED BLOOD COUNT 3.02 x10e6/uL (3.6-5.1); RED CELL DISTRIBUTION WIDTH 15.8 % (11.7-14.4)
[2020-06-28] MEDS: SODIUM BICARBONATE 8.4% 150 ML in DEXTROSE 5% 1,000 ML IV SCH (06:25)
[2020-06-28] MEDS: OCTREOTIDE ACETATE 500 MCG in SODIUM CHLORIDE 0.9% 250ML 249 ML IV SCH ×2 (06:25→14:51)
[2020-06-28] MEDS: CYANOCOBALAMIN INJ 1,000 MCG/ML VIAL IM SCH (08:25)
[2020-06-28] MEDS: PANTOPRAZOLE 40 MG 10ML VIAL IV SCH ×2 (08:25→21:00)
[2020-06-28] MEDS: IRON SUCROSE 100 MG in SODIUM CHLORIDE 0.9% 100 ML 100 ML IV SCH (08:55)
[2020-06-28] MEDS: METOPROLOL TARTRATE INJ 1 MG/ML VIAL IV PRN ×2 (11:31→21:28)
--- NOTE | 2020-06-28 12:49 | Progress Note ---
DATE: 06/28/2020 Cardiology Progress Note SUBJECTIVE: The patient was discussed with nursing staff. She was found to be positive for COVID-19 and is requiring 3 L nasal cannula for respiratory support. The patient is more hypertensive today. No complaints otherwise reported. OBJECTIVE: VITAL SIGNS: Temperature 98.3 degrees, pulse 72, respiratory rate 20, blood pressure 190/60, and oxygen saturation 100% on 3 L nasal cannula. The patient was not examined due to isolation for COVID-19. CARDIAC MEDICATIONS: Amlodipine 10 mg p.o. daily. LABORATORY DATA: WBC 10.82, hemoglobin 8.5, hematocrit 25.2, and platelets 157. Telemetry was personally reviewed and interpreted, revealing normal sinus rhythm. IMPRESSION: 1. Paroxysmal atrial fibrillation. 2. Elevated troponin. 3. Acute anemia, likely secondary to gastrointestinal blood loss. 4. Hypertension. 5. Diabetes mellitus. 6. Acute kidney injury. 7. Hyperkalemia. RECOMMENDATIONS: The patient's blood pressure has been elevated. She was started on amlodipine. We will add carvedilol for blood pressure and heart rate control. We will review echocardiogram once done and images are available. No anticoagulation is needed at this time due to acute GI bleeding. Can consider anticoagulant after GI evaluation has been completed. Elevated troponin is demand ischemia secondary to acute anemia as well as atrial fibrillation with RVR. No aspirin at this time given acute anemia. Ischemic evaluation once the patient recovers from her current illness. Get fasting lipid panel. Continue medical management for now. Volume management per Nephrology given the patient was started on emergent hemodialysis. Evaluation of bleeding per GI. Thank you for this consult. We will continue to follow. Ivy Grijalva MD ABS/MODL /[id number]
[2020-06-28] MEDS ORDERED: LIDOCAINE HCL 2% LOCAL INJ 5 ML SDV VIAL INJ ONE (14:06)
[2020-06-28] MEDS ORDERED: ETOMIDATE 2 MG/ML 10 ML INJ IV ONE (14:06)
[2020-06-28] MEDS ORDERED: PROPOFOL IV EMULSION 10 MG/ML 20 ML VIAL ONE (14:06)
[2020-06-28 14:21] LABS: ANION GAP 10.5 mmol/L (8-16); CALCIUM 7.5 mg/dL (8.4-10.2); CREATININE, SERUM 2.59 mg/dL (0.57-1.11); POTASSIUM 3.5 mmol/L (3.5-5.1)
--- NOTE | 2020-06-28 14:45 | Progress Note ---
DATE: Pulmonary Critical Care Progress Note SUBJECTIVE: The patient received blood products and her hemoglobin is now 8.5. She has also received dialysis. She is scheduled for colonoscopy and EGD today. PHYSICAL EXAMINATION: VITAL SIGNS: The patient is afebrile. The blood pressure is 160/85 and saturation is 100% on 3 L. HEENT: Shows no facial swelling or erythema. The oropharynx is normal. LYMPHATIC: Shows no submandibular, cervical, or supraclavicular adenopathy. CARDIAC: Reveals regular rate and rhythm with normal S1 and S2. LUNGS: Auscultation of lungs reveals rhonchorous breath sounds bilaterally. There is no wheezing. ABDOMEN: Soft and nontender. There is no rebound or guarding. EXTREMITIES: Shows no leg edema or calf tenderness. There is no cyanosis or clubbing. IMPRESSION: 1. Anemia secondary to chronic blood loss. 2. Acute renal failure. 3. Gastrointestinal bleeding. 4. Metabolic acidosis. 5. Thrombocytopenia. PLAN: 1. Continue to monitor electrolytes and creatinine, and give dialysis as needed. 2. Await colonoscopy and EGD. 3. Continue oxygen. 4. Hold off on dexamethasone at this time because the patient is relatively asymptomatic from her COVID. 5. She is not a candidate for remdesivir. Donald Levy MD [facility]/[place] /[id number]
[2020-06-28] MEDS ORDERED: EPINEPHRINE HCL 1:1000 1ML 1 MG/ML AMP ONE (15:23)
[2020-06-28] MEDS ORDERED: GLUCAGON FOR INJ 1 MG VIAL ONE (15:50)
--- NOTE | 2020-06-28 16:40 | Operative Report ---
DATE OF PROCEDURE: 06/28/2020 SURGEON: Escobar Suazo MD PROCEDURE: EGD. INDICATIONS FOR EGD: Anemia, history of melena. MEDICATIONS: The patient was done under MAC, please see anesthesiologist's note. PROCEDURE IN DETAIL: With the patient in the left lateral decubitus position, a flexible fiberoptic Olympus gastroscope was introduced into the esophagus under direct visualization without any difficulty. There was some patchy erythema noted in distal esophagus. The scope was then advanced with ease into the stomach, mucosa overlying the antrum and the body revealed some patchy erythema. Pylorus was intubated with ease and the scope was advanced all the way to the second portion of the duodenum. Mucosa overlying the proximal second portion appeared to be within normal limits. A giant ulcer approximately 2 cm in size was noted in the superior wall of the duodenal bulb with some stigmata of recent hemorrhage, but no active bleeding. Also, the ulcer had heaped up margins. The scope was then withdrawn back into the stomach and retroflexed, mucosa overlying the fundus and cardia appeared to be within normal limits. The scope was then straightened out, it was subsequently withdrawn. The patient tolerated the procedure well. IMPRESSION: 1. Distal esophagitis, mild. 2. Gastritis. 3. Large ulcer approximately 2 cm in size, superior wall of duodenal bulb with stigmata of recent hemorrhage, but no active bleeding. PLAN: 1. Follow H and H. 2. Continue Protonix 40 mg IV b.i.d. 3. We will add Carafate 1 g p.o. a.c. t.i.d. and at bedtime. Escobar Suazo MD [facility]/MOD[facility] /[id number] cc: Manolo Walton MD
[2020-06-28] MEDS: DEXTROSE 5%/0.45% SOD CHL 1,000 ML IV SCH (16:41)
[2020-06-28] MEDS: SUCRALFATE 1 GM TAB PO SCH ×2 (16:41→21:00)
[2020-06-29] VITALS (22 sets, daily range): BP systolic 147–188; BP diastolic 56–100
[2020-06-29] MEDS: OCTREOTIDE ACETATE 500 MCG in SODIUM CHLORIDE 0.9% 250ML 249 ML IV SCH ×3 (03:29→20:00)
[2020-06-29] MEDS: DEXTROSE 5%/0.45% SOD CHL 1,000 ML IV SCH ×2 (04:05→17:25)
[2020-06-29 05:29] LABS: HEMATOCRIT 24.1 % (34.2-44.1); HEMOGLOBIN 7.6 g/dL (12.0-16.0); MEAN CORPUSCULAR HEMOGLOBIN 27.3 pg (28-32); MEAN CORPUSCULAR HGB CONC 31.5 g/dL (31-35); MEAN CORPUSCULAR VOLUME 86.7 fL (81-99); PLATELET COUNT 128 x10e3/uL (140-360); RED BLOOD COUNT 2.78 x10e6/uL (3.6-5.1); RED CELL DISTRIBUTION WIDTH 16.2 % (11.7-14.4)
--- NOTE | 2020-06-29 05:30 | NUR ---
Patient having consistently high blood pressures above 170. Dr Grijalva informed, received orders for hydralazine.
[2020-06-29] MEDS: HYDRALAZINE HCL 20 MG/ML VIAL IV PRN ×2 (05:54→21:00)
[2020-06-29 05:55] LABS: ALBUMIN 2.1 g/dL (3.5-5.0); ALBUMIN/GLOBULIN RATIO 0.9 (0.8-2.0); ANION GAP 11.2 mmol/L (8-16); CALCIUM 7.3 mg/dL (8.4-10.2); CREATININE, SERUM 2.74 mg/dL (0.57-1.11); POTASSIUM 3.2 mmol/L (3.5-5.1)
[2020-06-29 05:56] LABS: CHOL/HDL RATIO 3.7 (3.0-3.6)
[2020-06-29] MEDS: PANTOPRAZOLE 40 MG 10ML VIAL IV SCH ×2 (08:08→21:00)
[2020-06-29] MEDS: CYANOCOBALAMIN INJ 1,000 MCG/ML VIAL IM SCH (08:08)
[2020-06-29] MEDS: AMLODIPINE BESYLATE 10 MG TAB PO SCH (08:08)
[2020-06-29] MEDS: SUCRALFATE 1 GM TAB PO SCH ×4 (08:08→21:00)
[2020-06-29] MEDS: IRON SUCROSE 100 MG in SODIUM CHLORIDE 0.9% 100 ML 100 ML IV SCH (09:47)
[2020-06-29] MEDS ORDERED: CARVEDILOL 12.5 MG TAB PO ONE (12:15)
--- NOTE | 2020-06-29 12:43 | NUR ---
Renal progress note subjective - chart reviewed, evens noted O - BP 172/ 88 mm hg P 109 R 18 SPO2 98% I/O - 3350/400 ml P/E Gen - not in acute distress chest - CTAB heart - RRR Abdomen - NT/ND Ext - minimal edema labs reviewed for today for a bump in creatinine. HgB improved after blood transfusions Assessment and plan - 1. Anemia secondary to chronic blood loss. - improved this morning after transfusions 2. Acute renal failure. - creatinine up today likely from another TN from blood loss - no indication for dialysis - will give a small dose of lasix to help with diuresis 3. Gastrointestinal bleeding - as pe primary/GI 4. Thrombocytopenia - as per primary
--- NOTE | 2020-06-29 16:24 | Progress Note ---
DATE: SUBJECTIVE: EGD showed an ulcer. The patient has less dyspnea and less fatigue. PHYSICAL EXAMINATION: VITAL SIGNS: The patient is afebrile, blood pressure is 172/88, pulse is 96, saturation is 98% on 3 L. CARDIAC: Reveals regular rate and rhythm with normal S1, S2. LUNGS: Auscultation of lungs reveals rhonchorous breath sounds bilaterally. There is no wheezing. ABDOMEN: Soft and nontender. There is no rebound or guarding. EXTREMITIES: Shows no leg edema or calf tenderness. LABORATORY DATA: CBC is significant for hemoglobin of 7.6. BUN to creatinine ratio is 26 to 2.74. IMPRESSION: 1. Anemia secondary to acute blood loss. 2. Peptic ulcer disease. 3. Viral pneumonia and COVID-19 infection. 4. Acute renal failure. 5. Thrombocytopenia. PLAN: 1. Continue to monitor blood counts. 2. Continue Protonix. 3. Continue dialysis if necessary. 4. Continue oxygen. 5. Transfer out of ICU. Donald Levy MD [facility]/MODL /[id number]
--- NOTE | 2020-06-29 16:54 | Progress Note ---
DATE: 06/29/2020 Cardiology Progress Note. SUBJECTIVE: The patient was discussed with nursing staff. She is complaining of abdominal pain, but denies any chest pain or shortness of breath. OBJECTIVE: VITAL SIGNS: Temperature 99.5 degrees, pulse 96 respiratory rate 15, blood pressure 132/80, oxygen saturation 98% on 3 L nasal cannula. The patient was not examined due to isolation for COVID-19. CARDIAC MEDICATIONS: Amlodipine 10 mg p.o. daily. LABORATORY DATA: WBC 6.43, hemoglobin 7.6, hematocrit 24.1, platelets 128. Sodium 141, potassium 3.2, chloride 99, CO2 34, BUN 26, creatinine 2.74. TELEMETRY: Telemetry was personally reviewed and interpreted revealing normal sinus rhythm. IMPRESSION: 1. Paroxysmal atrial fibrillation, currently sinus rhythm. 2. Elevated troponin. 3. Acute anemia, likely secondary to GI blood loss. 4. COVID-19. 5. Hypertension. 6. Diabetes mellitus. 7. Acute kidney injury, improving. 8. Hyperkalemia, improving. RECOMMENDATIONS: Blood pressure remains elevated. Add carvedilol for blood pressure and heart rate control. No anticoagulation is indicated at this time due to acute GI bleeding. Can consider starting anticoagulation after GI evaluation has been completed. Elevated troponin is demand ischemia secondary to acute anemia as well as atrial fibrillation. No aspirin at this time given acute anemia. Ischemic evaluation once the patient has recovered from her current illness. Medical management for now. Management of MAGNOLIA per Nephrology. Thank you for this consult. We will continue to follow. Ivy Grijalva MD [facility]/MODL /[id number]
[2020-06-29] MEDS: CARVEDILOL 12.5 MG TAB PO SCH (18:36)
--- NOTE | 2020-06-29 18:50 | Progress Note ---
DATE: SUBJECTIVE: Suzanna Bolton is a 69-year-old female, who was referred to me for evaluation of a hemoglobin of 3.2 on 06/26/2020. Since this patient is COVID-19 positive, I have kept out of the room. I have done the consultation remotely. The patient has a decent hemoglobin today of 7.6, platelets of 128,000, and white count 6430. Her serology is positive for COVID-19. The patient has been on dialysis. Her total proteins are extremely low at 4.4 and albumin very low at 2.1. Microbiology, the urine cultures are still pending. Hematologically, the patient is stable. I will confine myself to Hematology only. MD LARRY Virgen/ANNABELLE /[id number]
--- NOTE | 2020-06-29 20:24 | NUR ---
Received patient drowsy, due to be transferred out of the unit with Telebelen, Assisted to have her dinner, which she tolerated.
--- NOTE | 2020-06-29 21:32 | NUR ---
Transferred to room 186, vitals stable, patient alert
--- NOTE | 2020-06-29 21:47 | NUR ---
Patient arrived from ICU via bed. Awake and resting in bed, vital signs stable on 3L NC, no s/s of distress at this time. Zamudio catheter patent and draining to gravity, bag hung below bladder. Bed locked and in lowest position, side rails upx3, alarm on, call light and belongings placed within reach. All safety measures in place.
[2020-06-30] VITALS (7 sets, daily range): BP systolic 151–178; BP diastolic 69–85
--- NOTE | 2020-06-30 02:12 | NUR ---
Informed Naga Toribio MARKETING BUDGET ANALYST of patient's elevated blood sugars. Per MARKETING BUDGET ANALYST will consider continuing patient's PO home meds. Defer to nephrology regarding continuing IV fluids.
--- NOTE | 2020-06-30 02:12 | NUR ---
Naga Toribio NATIONAL SALES MANAGER here to see patient. No new orders received at this time.
[2020-06-30] MEDS: OCTREOTIDE ACETATE 500 MCG in SODIUM CHLORIDE 0.9% 250ML 249 ML IV SCH ×2 (03:10→16:48)
[2020-06-30] MEDS ORDERED: LACTULOSE SYRUP 20 GM/30 ML UDC PO PRN (03:15)
[2020-06-30] MEDS ORDERED: PROMETHAZINE HCL 25 MG TAB PO SCH (03:15)
[2020-06-30 06:37] LABS: HEMATOCRIT 23.4 % (34.2-44.1); HEMOGLOBIN 7.7 g/dL (12.0-16.0); MEAN CORPUSCULAR HEMOGLOBIN 30.3 pg (28-32); MEAN CORPUSCULAR HGB CONC 32.9 g/dL (31-35); MEAN CORPUSCULAR VOLUME 92.1 fL (81-99); PLATELET COUNT 125 x10e3/uL (140-360); RED BLOOD COUNT 2.54 x10e6/uL (3.6-5.1); RED CELL DISTRIBUTION WIDTH 17.2 % (11.7-14.4)
[2020-06-30 06:43] LABS: ALBUMIN 2.1 g/dL (3.5-5.0); ANION GAP 9.3 mmol/L (8-16); CALCIUM 7.3 mg/dL (8.4-10.2); CREATININE, SERUM 2.93 mg/dL (0.57-1.11); POTASSIUM 3.3 mmol/L (3.5-5.1)
[2020-06-30] MEDS: DEXTROSE 5%/0.45% SOD CHL 1,000 ML IV SCH ×2 (06:45→20:05)
[2020-06-30] MEDS: CYANOCOBALAMIN INJ 1,000 MCG/ML VIAL IM SCH (08:15)
[2020-06-30] MEDS: SITAGLIPTIN 100 MG TAB PO SCH ×2 (08:15→16:48)
[2020-06-30] MEDS: DOCUSATE SODIUM 100 MG CAP PO SCH ×2 (08:15→16:48)
[2020-06-30] MEDS: PANTOPRAZOLE 40 MG 10ML VIAL IV SCH ×2 (08:15→21:03)
[2020-06-30] MEDS: POLYETHYLENE GLYCOL 3350 17 GM PACK PO SCH ×2 (08:15→16:48)
[2020-06-30] MEDS: SUCRALFATE 1 GM TAB PO SCH ×4 (08:15→21:03)
[2020-06-30] MEDS: OLMESARTAN 20 MG TAB PO SCH (08:15)
[2020-06-30] MEDS: AMLODIPINE BESYLATE 10 MG TAB PO SCH (08:16)
[2020-06-30] MEDS ORDERED: METOPROLOL SUCCINATE 50 MG TAB XL PO SCH (09:00)
[2020-06-30] MEDS: CARVEDILOL 12.5 MG TAB PO SCH ×2 (09:00→16:48)
[2020-06-30] MEDS ORDERED: AMLODIPINE BESYLATE 10 MG TAB PO SCH (09:00)
[2020-06-30 11:11] LABS: LYMPHOCYTES % (MANUAL) 8 % (19-48); MONOCYTES % (MANUAL) 6 % (3.4-9.0); NEUTROPHILS % (MANUAL) 86 % (40-74)
[2020-06-30 11:12] LABS: ANISOCYTOSIS SLIGHT; SCHISTOCYTES RARE
[2020-06-30 11:13] LABS: PLATELET ESTIMATE SLIGHTLY DECREASED; PLATELET MORPHOLOGY COMMENT NORMAL; RBC MORPHOLOGY COMMENT NORMAL
--- NOTE | 2020-06-30 11:28 | Progress Note ---
DATE: SUBJECTIVE: The patient has been transferred from Intensive Care Unit to Intermediate Care. The patient was consulted because of hemoglobin of less than 4. The patient "as per the nurses" had transfusion reaction with fever. They had stopped the transfusion. Subsequently, I intervened as the hemoglobin was 3.2. The patient was given Solu-Cortef, Benadryl, and Tylenol and the blood transfusion was continued. The patient went up to 5.7 on 06/27, 8.5 on 06/28. The patient has a stable hemoglobin today 7.7. The patient is COVID-19 positive. Subsequently, I have not entered the room. Most of the consult has been done by reviewing the records, talking to the physicians and the nurses. The patient has distal esophagitis, gastritis, large ulcer 2 cm superior wall of the duodenal bulb with stigmata of active bleed. I have continued to be watching the pill coater only remotely, as she has COVID-19 positivity. I will keep an eye on her CBC. Thank you very much for allowing me to participate in the management of this patient. Brayan Merrill MD MAQ/MODL /[id number] cc: MD Manolo Hunt MD Maurice S Haddad, MD
[2020-06-30] MEDS: HYDRALAZINE HCL 20 MG/ML VIAL IV PRN ×2 (11:31→17:20)
[2020-06-30] MEDS: IRON SUCROSE 100 MG in SODIUM CHLORIDE 0.9% 100 ML 100 ML IV SCH (13:32)
--- NOTE | 2020-06-30 15:39 | Progress Note ---
DATE: 06/30/2020 Cardiology Progress Note. SUBJECTIVE: The patient was discussed with nursing staff. She denies any chest pain or shortness of breath. OBJECTIVE: VITAL SIGNS: Temperature 99.9 degrees, pulse 72, respiratory rate 18, blood pressure 177/69, oxygen saturation 96% on 2 L nasal cannula. The patient was not examined due to isolation for COVID-19. CARDIAC MEDICATIONS: 1. Amlodipine 10 mg p.o. daily. 2. Olmesartan 40 mg p.o. daily. 3. Carvedilol 6.25 mg p.o. b.i.d. LABORATORY DATA: WBC 6.74, hemoglobin 7.7, hematocrit 23.4, platelets 125. Sodium 139, potassium 3.3, chloride 100, CO2 of 33, BUN 29, creatinine 2.93. TELEMETRY: Personally reviewed and interpreted, reviewing normal sinus rhythm. IMPRESSION: 1. Paroxysmal atrial fibrillation, currently sinus rhythm. 2. Elevated troponin. 3. Acute anemia, likely secondary to GI blood loss. 4. COVID-19 pneumonia. 5. Hypertension. 6. Diabetes mellitus. 7. Acute kidney injury. 8. Hyperkalemia. RECOMMENDATIONS: Blood pressure remains elevated. Increase carvedilol for blood pressure and heart rate control. No antiplatelets at this time due to acute GI bleeding. Can consider anticoagulation for CVA prophylaxis after GI evaluation has been completed. Elevated troponin is demand ischemia secondary to acute anemia as well as atrial fibrillation. No aspirin at this time due to acute anemia, ischemic evaluation once the patient has recovered from her current illness. For now, management of acute kidney injury per Nephrology. Thank you for this consult. We will continue to follow. Ivy Grijalva MD ABS/MODL /[id number]
--- NOTE | 2020-06-30 17:39 | Progress Note ---
DATE: SUBJECTIVE: The patient is afebrile. She is less fatigued. She is only requiring 2 L of oxygen. PHYSICAL EXAMINATION: VITAL SIGNS: Blood pressure is 177/70 and saturation is 96%. The pulse is 72. HEENT: Shows no facial swelling or erythema. The oropharynx is normal. LYMPHATIC: Shows no submandibular, cervical, or supraclavicular adenopathy. NECK: Shows no JVD or thyromegaly. There is no nuchal rigidity. CARDIAC: Reveals regular rate and rhythm with normal S1 and S2. LUNGS: Auscultation of lungs reveals crackles at the bases. There is no wheezing. ABDOMEN: Soft and nontender. There is no rebound or guarding. EXTREMITIES: Shows no leg edema or calf tenderness. There is no cyanosis or clubbing. LABORATORY DATA: White blood cell count is 6.7, the hemoglobin is 7.7, and the platelet count is 125. The BUN to creatinine ratio is 29 to 2.93. The potassium is 3.3. Other electrolytes are within normal limits. The albumin is 2.1. IMPRESSION: 1. Anemia secondary to acute blood loss. 2. Viral pneumonia and COVID-19 infection. 3. Peptic ulcer disease. 4. Acute renal failure. 5. Thrombocytopenia. PLAN: 1. Continue to monitor blood counts. 2. Continue to monitor renal function. 3. Continue Protonix. 4. Wean off oxygen. 5. Physical therapy. MD TARYN Ortiz/ANNABELLE /[id number]
--- NOTE | 2020-06-30 18:40 | NUR ---
Paged Dr.Haddad Pereira to notify patient positive for occult blood. Awaiting call back
--- NOTE | 2020-06-30 19:04 | NUR ---
Report given to oncoming nurse of patient's status. Resting in bed. No s/s of acute distress noted. O2 2L NC. SPO2 93%. Side rails upx2, call light within reach, bed alarm on.
--- NOTE | 2020-06-30 19:11 | NUR ---
aware patient positive occult blood. No new orders
[2020-07-01] VITALS (9 sets, daily range): BP systolic 151–199; BP diastolic 59–82
[2020-07-01] MEDS: HYDRALAZINE HCL 20 MG/ML VIAL IV PRN ×3 (00:09→19:44)
[2020-07-01] MEDS ORDERED: SODIUM CHLORIDE 0.9% 250ML 0 ML ONE (02:30)
[2020-07-01] MEDS: OCTREOTIDE ACETATE 500 MCG in SODIUM CHLORIDE 0.9% 250ML 249 ML IV SCH ×3 (02:32→22:58)
--- NOTE | 2020-07-01 06:18 | NUR ---
Saturation testing for oxygen attempted. Pt was unable to stand or walk for testing. She was able to sit on the side of the bed w/o any difficulties. Patient's oxygen saturation remained the same at 96% on RA in supine and sitting positions.
[2020-07-01 06:21] LABS: BASOPHILS % 0.1 % (0.0-1.0); EOSINOPHILS # (AUTO) 0.2 (0.0-0.4); EOSINOPHILS % 2.9 % (0.0-6.0); HEMATOCRIT 27.1 % (34.2-44.1); HEMOGLOBIN 8.4 g/dL (12.0-16.0); LYMPHOCYTES # (AUTO) 0.8 (1.0-3.2); LYMPHOCYTES % 10.7 % (18.0-39.1); MEAN CORPUSCULAR HEMOGLOBIN 27.5 pg (28-32); MEAN CORPUSCULAR VOLUME 88.6 fL (81-99); MONOCYTES # (AUTO) 0.9 (0.2-0.8); MONOCYTES % 11.9 % (4.4-11.3); NEUTROPHILS # (AUTO) 5.6 (2.1-6.9); NEUTROPHILS % 73.7 % (38.7-80.0); PLATELET COUNT 134 x10e3/uL (140-360); RED BLOOD COUNT 3.06 x10e6/uL (3.6-5.1); RED CELL DISTRIBUTION WIDTH 16.6 % (11.7-14.4)
[2020-07-01 06:48] LABS: ANION GAP 11.5 mmol/L (8-16); CALCIUM 7.6 mg/dL (8.4-10.2); CREATININE, SERUM 3.02 mg/dL (0.57-1.11); POTASSIUM 3.5 mmol/L (3.5-5.1)
--- NOTE | 2020-07-01 06:50 | NUR ---
REPORT RECEIVED FROM PM NURSE ON COVID POSITIVE PATIENT. PATIENT RECEIVED LYING IN BED WITH HOB ELEVATED 30 DEGREES. PATIENT COMPLAINED OF DISCOMFORT. PATIENT WAS REPOSITIONED IN BED AND STATED NO MORE DISCOMFORT OR FURTHER COMPLAINTS. PATIENT WAS EDUCATED ON FALL RISK PRECAUTIONS AND VERBALIZED UNDERSTANDING. CALL LIGHT AND BELONGINGS WERE PLACED NEARBY. WILL CONTINUE TO MONITOR.
[2020-07-01] MEDS: PANTOPRAZOLE 40 MG 10ML VIAL IV SCH ×2 (08:40→20:11)
[2020-07-01] MEDS: CARVEDILOL 12.5 MG TAB PO SCH ×2 (08:41→19:27)
[2020-07-01] MEDS: OLMESARTAN 20 MG TAB PO SCH (08:41)
[2020-07-01] MEDS: SUCRALFATE 1 GM TAB PO SCH ×4 (08:41→20:11)
[2020-07-01] MEDS: DOCUSATE SODIUM 100 MG CAP PO SCH ×2 (08:41→19:26)
[2020-07-01] MEDS: AMLODIPINE BESYLATE 10 MG TAB PO SCH (08:41)
[2020-07-01] MEDS: SITAGLIPTIN 100 MG TAB PO SCH ×2 (08:41→19:27)
[2020-07-01] MEDS: CYANOCOBALAMIN INJ 1,000 MCG/ML VIAL IM SCH (08:42)
[2020-07-01] MEDS: POLYETHYLENE GLYCOL 3350 17 GM PACK PO SCH ×2 (08:42→19:27)
[2020-07-01] MEDS: IRON SUCROSE 100 MG in SODIUM CHLORIDE 0.9% 100 ML 100 ML IV SCH (08:42)
[2020-07-01] MEDS: DEXTROSE 5%/0.45% SOD CHL 1,000 ML IV SCH ×2 (08:43→22:45)
--- NOTE | 2020-07-01 18:15 | Progress Note ---
DATE: 07/01/2020 SUBJECTIVE: Suzanna Bolton is a 69-year-old female, referred to me for evaluation of anemia. The patient's hemoglobin was 3.2 to begin with. I have been keeping an eye on the patient's CBC remotely as she has COVID-19. The patient's hemoglobin today is 8.4, hematocrit 27.1, white count 7550, and platelets are 134,000. The patient's chemistry is decent with a sodium of 137, potassium 3.5, chloride 99, CO2 of 30, BUN 35, and creatinine 3.02. Dr. Vieira is on the case. I will continue to follow this patient remotely. Thank you very much for allowing me to participate in management of this patient during this hospitalization. MD LARRY Virgen/ANNABELLE /[id number]
--- NOTE | 2020-07-01 19:30 | NUR ---
Resumed care of patient. Assisted patient from BSC back to bed. Dark stool noted. Patient currently resting in bed, respirations even and unlabored on 2L NC. Zamudio catheter patent and draining to gravity. All safety measures in place.
[2020-07-01] MEDS: NIFEDIPINE CR 30 MG TAB PO SCH (20:11)
[2020-07-02] VITALS (8 sets, daily range): BP systolic 146–176; BP diastolic 64–98
[2020-07-02] MEDS: HYDRALAZINE HCL 20 MG/ML VIAL IV PRN ×2 (00:57→06:11)
--- NOTE | 2020-07-02 01:07 | NUR ---
Patient c/o pain d/t Zamudio. Spoke to Naga Toribio and received orders to DC.
--- NOTE | 2020-07-02 01:17 | NUR ---
Zamudio DC'd with catheter tip intact. Patient due to void, currently sitting on BSC. All safety measures in place.
[2020-07-02 05:20] LABS: BASOPHILS % 0.1 % (0.0-1.0); EOSINOPHILS # (AUTO) 0.2 (0.0-0.4); EOSINOPHILS % 2.1 % (0.0-6.0); HEMATOCRIT 25.7 % (34.2-44.1); HEMOGLOBIN 8.1 g/dL (12.0-16.0); LYMPHOCYTES # (AUTO) 0.7 (1.0-3.2); MEAN CORPUSCULAR HEMOGLOBIN 27.9 pg (28-32); MEAN CORPUSCULAR HGB CONC 31.5 g/dL (31-35); MEAN CORPUSCULAR VOLUME 88.6 fL (81-99); MONOCYTES # (AUTO) 0.9 (0.2-0.8); MONOCYTES % 11.5 % (4.4-11.3); NEUTROPHILS # (AUTO) 6.1 (2.1-6.9); NEUTROPHILS % 76.4 % (38.7-80.0); PLATELET COUNT 133 x10e3/uL (140-360)
[2020-07-02 05:45] LABS: ALBUMIN 2.3 g/dL (3.5-5.0); ANION GAP 10.3 mmol/L (8-16); CALCIUM 7.5 mg/dL (8.4-10.2); CREATININE, SERUM 2.71 mg/dL (0.57-1.11); POTASSIUM 3.3 mmol/L (3.5-5.1)
--- NOTE | 2020-07-02 06:37 | NUR ---
Patient resting quietly in bed, respirations even and unlabored on 2L NC, no s/s of distress at this time. All safety measures in place.
--- NOTE | 2020-07-02 06:50 | NUR ---
Patient currently sitting on BSC, reports feeling urge to urinate. Due to void at 0717. All safety measures in place.
--- NOTE | 2020-07-02 07:03 | NUR ---
Patient voided 200 ml post Zamudio removal.
[2020-07-02] MEDS ORDERED: POTASSIUM CHLORIDE 10MEQ EA PO SCH (08:30)
--- NOTE | 2020-07-02 09:33 | NUR ---
CALLED AND SPOKE WITH NURSE DAVE ABOUT HD CHAIR SET UP, PT IS HAVING ACCESS REMOVED WE SPEAK, ASKED HER TO CANCEL THE HD ORDER.
--- NOTE | 2020-07-02 09:47 | Progress Note ---
DATE: 07/02/2020 SUBJECTIVE: Suzanna Bolton is a 69-year-old female, who is referred to me for evaluation of a hemoglobin of 3.2. The patient has had GI bleed. The patient also had iron deficiency. The patient was given INFeD. Blood transfusion was given. Initially, the nurses have stopped the blood transfusion because of temperature; however, I have overwrite that decision as she was bleeding with Benadryl, Tylenol, and Solu-Cortef. The patient did reasonably well. The patient is physically not being seen by me as she has COVID-19. I have kept an eye on the patient's CBC. The patient's potassium is 3.3. I will defer this to the director industrial, who is involved. She is very debilitated with total protein of 4.7, and albumin of 2.3. I will confine myself to Hematology. MD LARRY Virgen/ANNABELLE /[id number]
[2020-07-02] MEDS: OCTREOTIDE ACETATE 500 MCG in SODIUM CHLORIDE 0.9% 250ML 249 ML IV SCH ×2 (10:19→18:00)
[2020-07-02] MEDS: SUCRALFATE 1 GM TAB PO SCH ×4 (10:19→20:12)
[2020-07-02] MEDS: DOCUSATE SODIUM 100 MG CAP PO SCH ×2 (10:20→17:04)
[2020-07-02] MEDS: CYANOCOBALAMIN INJ 1,000 MCG/ML VIAL IM SCH (10:20)
[2020-07-02] MEDS: SITAGLIPTIN 100 MG TAB PO SCH ×2 (10:20→17:04)
[2020-07-02] MEDS: IRON SUCROSE 100 MG in SODIUM CHLORIDE 0.9% 100 ML 100 ML IV SCH (10:20)
[2020-07-02] MEDS: PANTOPRAZOLE 40 MG 10ML VIAL IV SCH ×2 (10:20→20:12)
[2020-07-02] MEDS: POLYETHYLENE GLYCOL 3350 17 GM PACK PO SCH ×2 (10:21→17:04)
[2020-07-02] MEDS: NIFEDIPINE CR 30 MG TAB PO SCH ×2 (10:21→20:12)
[2020-07-02] MEDS: ASCORBIC ACID 500 MG TAB PO SCH ×2 (10:21→17:04)
[2020-07-02] MEDS: CARVEDILOL 12.5 MG TAB PO SCH ×2 (10:21→17:04)
[2020-07-02] MEDS: DEXTROSE 5%/0.45% SOD CHL 1,000 ML IV SCH (10:21)
--- NOTE | 2020-07-02 16:20 | NUR ---
Dr. Vieira ordered for patient's IJ to be removed at this time by ARNEL Reynoldssupervisor leaf spring repair. Rodolfo did remove patient's IJ and covered it with a C/D/I dressing, Rodolfo also placed in a new peripheral line to the left AC 20g which infiltrated at this time. Will place another IV to continue drip on patient. Addendum: 07/02/20 at 1622 by Cecilia Yuen RN Tip was intact and no issues from removal of IJ.
[2020-07-02] MEDS ORDERED: CEFTRIAXONE SOD 1 GM/NS 50 ML 50 ML IV SCH (18:15)
[2020-07-02] MEDS: DEXAMETHASONE SOD PHOS INJ 4 MG/ML VIAL IV SCH (18:25)
--- NOTE | 2020-07-02 18:54 | NUR ---
Nutrition Intervention Note RD Recommendation(s) for Physician: - Continue current diet - Continue Nepro BID Plan of Care: RD following, monitoring for tolerance and adequacy, diet and ONS rec's Nutrition reason for involvement: follow up RD Assessment 07/02: Follow up. Attempted to contact pt room, no answer. Pt diet advanced and receiving Nepro TID. Pt with good intake, 75-100% of meals. No HD currently, BUN/Cr trend improved. Chart reviewed. Will continue to monitor. 06/27: 69 YOF admitted for GIB and diarrhea, assessed today per MST3 screen. Pt sleeping on HD at time of visit, appears well nourished. Spoke with RN on unit, HD yesterday and plan for scope tomorrow. Chart reviewed. Will continue to monitor. Principal Problems/Diagnoses: GIB PMH: HTN, DM GI: LBM 07/02 x 2 Skin: skin intact Labs: 07/02: Na 140, K 3.4, BUN 34, Cr 2.71, Gluc 126, Ca 7.5 06/27: Na 140, K 4.1, BUN 33, Cr 2.41, Gluc 188, POC Gluc 202-209, A1C 4.8 Meds: lasix, phenergan, octreotide, carafate, vitamin C, miralax, colace, januvia, vitamin B12, IV Fe, protonix Ht: 64 in Wt: 135.5 lb BMI: 23.3 kg/m2 IBW: 120 lb Malnutrition Evaluation (06/27/20) The patient does not meet criteria for a specified degree of malnutrition at this time. Will re-evaluate at follow-up as appropriate. Energy intake: <75% of estimated energy requirements for >3 days Weight loss: FAN Fat loss: none, bulging eye pads Muscle loss: none, shoulder round Supporting Evidence: Fluid accumulation: FAN Functional Status: FAN Nutrition Prescription (Diet Order):1800 ADA, Renal, GI Soft with Nepro TID Estimated Nutritional Needs: 9689-3559 calories/day (25-28 kcal/kg CBW) 74-92 g protein/day (1.2-1.5 g pro/kg CBW) Diet Adequacy: meeting calorie needs, meeting protein needs Diet Tolerance: tolerating po Diet Education Needs Assessment: Diet education indicated, but patient not appropriate for education at this time. Nutrition Care Level: low Nutrition Diagnosis: Inadequate energy and protein intake related to current medical condition (GIB) as evidenced by reported poor intake [employer] and currently NPO. (resolved) Goal: Patient will meet 75-100% of estimated needs by follow up Progress: goal met Interventions: -Fiber, mineral, CHO-modified diet, Commercial beverage, Multivitamin/mineral supplement therapy, Collaboration with other providers, recommend modifications Monitoring/Evaluation: -Total energy intake, Total protein intake, Modified diet, Liquid supplement, Weight change Signed: Olga Lidia Rosado RD, LD, [facility]
[2020-07-02] MEDS ORDERED: AZITHROMYCIN 250MG/NS 100 ML 100 ML IV SCH (19:30)
--- NOTE | 2020-07-02 19:33 | NUR ---
Resumed care of patient. Patient awake and sitting up in bed, respirations even and unlabored on 2L NC, no s/s of distress at this time. All safety measures in place.
--- NOTE | 2020-07-02 20:13 | Diagnostic Imaging Report ---
EXAMINATION: CHEST SINGLE (PORTABLE) INDICATION: Pneumonia. COMPARISON: Multiple prior chest x-rays including most recent on 06/26/2020. FINDINGS: TUBES and LINES: There has been interval removal of the right internal jugular central venous catheter. LUNGS: Hypoinflated with bronchovascular crowding and consolidative opacities at the bilateral lung bases, right more to left. These findings have progressed since most recent prior examination. PLEURA: Probable small bilateral pleural effusion. HEART AND MEDIASTINUM: Accounting for differences in patient positioning and image technique, no interval change in the cardiomediastinal silhouette. BONES AND SOFT TISSUES: No acute osseous lesion. Soft tissues are unremarkable. UPPER ABDOMEN: No free air under the diaphragm. IMPRESSION: Interval progression of the consolidative opacities in bilateral lung bases which most likely represents multifocal pneumonia, likely viral. Signed by: Dory Lara MD on 07/02/2020 8:09 PM
[2020-07-03] VITALS: BP 156/77
--- NOTE | 2020-07-03 00:36 | Progress Note ---
DATE: 07/02/2020 Cardiology Progress Note SUBJECTIVE: No major events overnight. No chest pain or shortness of breath. OBJECTIVE: VITAL SIGNS: Temperature afebrile, pulse 72, respiratory rate 18, blood pressure 145/69, saturating 96% on 2 L. INPATIENT MEDICATIONS: Reviewed. LABORATORY DATA: Reviewed. TELEMETRY DATA: Reviewed. ASSESSMENT/PLAN: 1. Paroxysmal atrial fibrillation. 2. Elevated troponin. 3. Acute anemia secondary to gastrointestinal blood loss. 4. COVID-19 pneumonia. 5. Hypertension. 6. Diabetes. 7. Acute kidney injury. 8. Hyperkalemia. RECOMMENDATIONS: Heart rate and blood pressure control, is adequate at this time. We will continue to titrate medicines as required. Elevated troponin due to type 2 [place] secondary to atrial fibrillation with RVR and COVID-19 pneumonia. Continue aspirin only. No full-dose anticoagulation. Given suspected GI blood loss. The patient may get outpatient ischemic workup with a stress test once acute COVID-19 pneumonia resolves and the patient has recovered. Thank you for this consult. We will continue to follow. MD SHIMON Guevara/ANNABELLE /[id number]
--- NOTE | 2020-07-03 01:18 | NUR ---
Dr. Randall Suazo here to see patient. No new orders received at this time.
[2020-07-03] MEDS: OCTREOTIDE ACETATE 500 MCG in SODIUM CHLORIDE 0.9% 250ML 249 ML IV SCH (02:05)
[2020-07-03 04:00] VITALS: BP 146/73
[2020-07-03 05:20] LABS: BASOPHILS % 0.1 % (0.0-1.0); HEMATOCRIT 25.1 % (34.2-44.1); HEMOGLOBIN 7.7 g/dL (12.0-16.0); LYMPHOCYTES # (AUTO) 0.3 (1.0-3.2); LYMPHOCYTES % 4.3 % (18.0-39.1); MEAN CORPUSCULAR HEMOGLOBIN 27.3 pg (28-32); MEAN CORPUSCULAR HGB CONC 30.7 g/dL (31-35); MONOCYTES # (AUTO) 0.2 (0.2-0.8); MONOCYTES % 2.4 % (4.4-11.3); NEUTROPHILS # (AUTO) 7.4 (2.1-6.9); NEUTROPHILS % 92.3 % (38.7-80.0); PLATELET COUNT 145 x10e3/uL (140-360); RED BLOOD COUNT 2.82 x10e6/uL (3.6-5.1); RED CELL DISTRIBUTION WIDTH 17.2 % (11.7-14.4)
[2020-07-03 05:48] LABS: ALBUMIN 2.1 g/dL (3.5-5.0); ALBUMIN/GLOBULIN RATIO 0.9 (0.8-2.0); ALKALINE PHOSPHATASE 49 IU/L (40-150); BLOOD UREA NITROGEN 35 mg/dL (7-26); BUN/CREATININE RATIO 13 (6-25); CARBON DIOXIDE 23 mmol/L (22-29); CHLORIDE 111 mmol/L (98-107); CREATININE, SERUM 2.63 mg/dL (0.57-1.11); EST GLOMERULAR FILTRATION RATE 18 ML/MIN (60-); GLUCOSE 231 mg/dL (74-118); SODIUM 141 mmol/L (136-145)
[2020-07-03 05:51] LABS: ALANINE AMINOTRANSFERASE < 6 IU/L (0-55)
[2020-07-03 06:32] LABS: LYMPHOCYTES % (MANUAL) 3 % (19-48); MONOCYTES % (MANUAL) 1 % (3.4-9.0); MYELOCYTES % (MANUAL) 1 % (0-0); NEUTROPHILS % (MANUAL) 95 % (40-74)
[2020-07-03 06:34] LABS: ANISOCYTOSIS SLIGHT; PLATELET ESTIMATE ADEQUATE; PLATELET MORPHOLOGY COMMENT NORMAL; POIKILOCYTOSIS SLIGHT; RBC MORPHOLOGY COMMENT NORMAL
--- NOTE | 2020-07-03 07:00 | NUR ---
RECEIVED SHIFT REPORT FROM OFF GOING NIGHT NURSE. PATIENT IN STABLE CONDITION, NO S/S OF DISTRESS NOTED. TELEMETRY APPLIED. OXYGEN APPLIED @ 2 LPM/NC. ON CONT. PULSE OX. IV FLUIDS INFUSING , SITE ASYMPTOMATIC AND PATENT, TRANSPARENT DRESSING C/D/I. NO PAIN VERBALIZED. BED ALARM APPLIED. BED IN LOWEST POSITION AND LOCKED, NON SKID SOCKS APPLIED, SIDE RAILS X 2. CALL LIGHT WITHIN REACH.
[2020-07-03] MEDS: SUCRALFATE 1 GM TAB PO SCH ×2 (07:30→11:56)
[2020-07-03 07:42] VITALS: BP 153/69
[2020-07-03] MEDS: IRON SUCROSE 100 MG in SODIUM CHLORIDE 0.9% 100 ML 100 ML IV SCH (08:35)
[2020-07-03] MEDS: PANTOPRAZOLE 40 MG 10ML VIAL IV SCH (08:35)
[2020-07-03] MEDS: DEXAMETHASONE SOD PHOS INJ 4 MG/ML VIAL IV SCH (08:35)
[2020-07-03] MEDS: DOCUSATE SODIUM 100 MG CAP PO SCH (08:35)
[2020-07-03] MEDS: CYANOCOBALAMIN INJ 1,000 MCG/ML VIAL IM SCH (08:35)
[2020-07-03] MEDS: CARVEDILOL 12.5 MG TAB PO SCH (08:36)
[2020-07-03] MEDS: POLYETHYLENE GLYCOL 3350 17 GM PACK PO SCH (08:36)
[2020-07-03] MEDS: NIFEDIPINE CR 30 MG TAB PO SCH (08:36)
[2020-07-03] MEDS: ASCORBIC ACID 500 MG TAB PO SCH (08:36)
[2020-07-03] MEDS: SITAGLIPTIN 100 MG TAB PO SCH (08:36)
[2020-07-03] MEDS ORDERED: ALBUTEROL HFA INH (09:55)
[2020-07-03] MEDS ORDERED: CEFTIN PO (09:55)
[2020-07-03] MEDS ORDERED: ELIQUIS2.5 MG PO (09:55)
[2020-07-03] MEDS ORDERED: DECADRON6 MG PO (09:55)
[2020-07-03] MEDS ORDERED: NIFEDIPINE ER30 M1 PO (09:55)
[2020-07-03] MEDS ORDERED: PROMETHAZINE HC25 M1 PO (09:55)
[2020-07-03] MEDS ORDERED: PANTOPRAZOLE SO40 MG PO (09:55)
[2020-07-03] MEDS ORDERED: CARAFATE1 GM PO (09:55)
[2020-07-03] MEDS ORDERED: CEFTRIAXONE SOD 1 GM/NS 50 ML 50 ML IV ONE (10:35)
[2020-07-03] MEDS ORDERED: AZITHROMYCIN 250MG/NS 100 ML 100 ML IV ONE (11:15)
--- NOTE | 2020-07-03 12:39 | Progress Note ---
DATE: 07/03/2020 SUBJECTIVE: Ms. Bolton was referred to me for evaluation of thrombocytopenia. The patient is known to have COVID-19. The patient's hemoglobin is stable at 7.7. The patient's hemoglobin has capellan as low as 4. The patient is also known to have thrombocytopenia. The patient had been successfully transfused from 3.2 as dictated before. The patient does have a GI bleed. Most of my consultation with her has been virtual as she has COVID-19 as I am a high risk for mark it because of my age and the coronary artery disease, coronary artery bypass. I have made it very clear with the attending that I would do the virtual consult. The patient at the present time is very stable, is not in need any intervention perhaps before she goes home. We will have to have a INFeD again. MD LARRY Virgen/ANNABELLE /[id number]
--- NOTE | 2020-07-03 14:14 | NUR ---
PATIENT DISCHARGED HOME. PATIENT OFF THE UNIT @ 1359 VIA WHEELCHAIR ACCOMPANIED BY RN TO THE LOBBY. PATIENT IN STABLE CONDITION, NO S/S OF DISTRESS NOTED. NO PAIN VOICED. IV ACCESS REMOVED WITH TIP INTACT. ALL PERSONAL ITEMS TAKEN WITH THE PATIENT. DISCHARGE TEACHING AND INSTRUCTIONS GIVEN TO THE PATIENT. PATIENT VERBALIZED UNDERSTANDING. PRESCRIPTIONS GIVEN TO THE PATIENT ALONG WITH DISCHARGE PAPERWORK.
--- NOTE | 2020-07-03 16:34 | Progress Note ---
DATE: SUBJECTIVE: The patient is lying supine in bed. No acute distress. Minimal complaints. She has been on a clear liquid diet, seems to be tolerating well. Hemoglobin was as low as 3.2. She has received at least 5 units of PRBCs and one leukocyte reduced pheresis platelets. She remains in ICU. OBJECTIVE: VITAL SIGNS: Temperature 98.1, heart rate 82, blood pressure 159/68, respirations 20, oxygen saturation 95%. GENERAL: Supine, appears ill, pale. LUNGS: Respirations nonlabored. Clear to auscultation. She remained on 3 L of oxygen via nasal cannula. HEENT: EOMI. Sclerae anicteric. NECK: Supple. No JVD. CARDIOVASCULAR: Regular rate and rhythm without murmur. Right Trialysis catheter. Octreotide infusing at 50 mcg/hour and D5W with three amps of sodium bicarbonate infusing at 70 mL/h. ABDOMEN: Bowel sounds positive. Soft, nontender. She has a Zamudio catheter with ashleigh urine. EXTREMITIES: No pitting edema. No clubbing, cyanosis, or signs of DVT. NEUROLOGIC: Mild confusion, nonfocal. LABORATORY DATA: WBC is 10.82, hemoglobin 8.5, hematocrit 25.2, and platelets 157. Sodium 139, potassium 3.5, chloride 98, CO2 of 34, anion gap 10.5, BUN 25, creatinine 2.59, estimated GFR 18, glucose 234, and calcium 7.5. On 06/26, costa virus PCR positive. IMAGING DATA: Most recent chest x-ray on 06/26 showed cardiomegaly with pulmonary venous congestion, increased right IJ catheter with tip over the low superior vena cava. ASSESSMENT AND PLAN: 1. Gastrointestinal bleed with severe anemia (improved) and thrombocytopenia, large ulcer, duodenal bulb. The patient had esophagogastroduodenoscopy and colonoscopy today which showed a large ulcer about 2 cm in size in the superior wall of the duodenal bulb with stigmata of recent hemorrhage, but no active bleeding per GI. It is today hemoglobin 8.5, platelets 157. Continue IV octreotide and Protonix. Any blood products should be given during dialysis when needed. 2. Acute kidney injury, on hemodialysis, status post hyperkalemia. Continue hemodialysis per Nephrology. Potassium level 4.1 yesterday. 3. Severe metabolic acidosis. Serum bicarbonate 20 yesterday. Hemodialysis per Nephrology. Continue sodium bicarbonate drip per Nephrology recommendations. On 06/26, lactic acid 1.7. 4. coronavirus disease-19. We will hold Decadron as the patient is generally asymptomatic from the COVID-19. She is not a candidate for remdesivir. Wean supplemental oxygen to room air as tolerated. 5. Uncontrolled type 2 diabetes mellitus with hyperglycemia and elevated the anion gap. Hemoglobin A1c 4.9%. Continue clear liquid diet. Anion gap improved at 10.5 (20.1). Continue to monitor fingerstick blood glucose levels. 6. Paroxysmal atrial fibrillation. Cardiology following. No anticoagulation is needed at this time due to acute GI bleeding. No aspirin at this time given acute anemia. Heart rate 82. 7. Controlled hypertension. Blood pressure has been elevated, today 159/68. Cardiology is following. Cardiology to review echocardiogram once done and images available. * Prophylaxis. Octreotide, Protonix, and SCDs. Billing code [id number]. Time spent 35 minutes. Dictated by Naga Toribio NP MD JENNY LoraP/MODL /[id number]
--- NOTE | 2020-07-03 17:07 | NUR ---
HOME 02 EVAL YESTERDAY SHOWS 02 SATS OF 89% ON ROOM AIR WITH EXERTION TODAY REPEAT HOME 02 EVAL; PT STAYED IN THE 90'S ON ROOM AIR WITH EXERTION DOES NOT QUALIFY FOR HOME 02 NURSE AND BRIDGETTE PABLO TIBCO DEVELOPER NOTIFIED
--- NOTE | 2020-07-03 21:06 | NUR ---
Addendum to Progress Note dictated, job#[id number]: Date of service: 06/28/2020 Patient remains in ICU. Billing code: [id number] (NOT [id number])
--- NOTE | 2020-07-03 22:36 | Progress Note ---
DATE: 06/29/2020 CONSULTING PHYSICIANS: 1. Brayan Merrill MD, with Oncology/Hematology. 2. Anup Vieira MD, with Nephrology. 3. Donald Levy MD, with Pulmonology. 4. Escobar Suazo MD, with Gastroenterology. 5. Howie Marin MD, with Cardiology. SUBJECTIVE: Overall the patient is doing well. States that she has not had a bowel movement recently. Minimal complaints. No acute distress. She remains in ICU. OBJECTIVE: VITAL SIGNS: Temperature 104, blood pressure 172/88, systolic blood pressure subsequent 187, respirations 18, and oxygen saturation 93%. GENERAL: Supine. Pale. LUNGS: Respirations nonlabored. Clear to auscultation. She has been on oxygen at 3 L via nasal cannula; however, currently she is not wearing any oxygen. HEENT: EOMI. Sclerae anicteric. NECK: Supple. CARDIOVASCULAR: Regular rate and rhythm without murmur. Right Trialysis catheter. Sandostatin drip. ABDOMEN: Bowel sounds positive. Soft, nontender. GENITOURINARY: She has a Zamudio catheter with ashleigh urine. EXTREMITIES: No pitting edema. No clubbing, cyanosis, or notable swelling. NEUROLOGIC: Mild confusion. GCS 14, eye 3, verbal 5, motor 6. Nonfocal. LABORATORY DATA: WBC 6.43, hemoglobin 7.6, hematocrit 24.1, platelets 128. Sodium 141, potassium 3.2, chloride 99, CO2 of 34, anion gap 11.2, BUN 26, creatinine 2.74, estimated GFR 17, glucose 159, calcium 7.3, total bilirubin 0.7, AST 9, ALT 7, alkaline phosphatase 60, total protein 4.4, albumin 2.1. Fingerstick blood glucose levels 211, 242. Fecal occult blood test positive. Coronavirus PCR collected 06/26 positive. IMAGING DATA: No new chest x-ray results. Echocardiogram completed 06/28/2020. Per review engineer's final report includes moderate concentric left ventricular hypertrophy. Overall, left ventricular systolic function is normal with an EF between 60% to 65%. Pseudonormal left ventricular filling pattern consistent with elevated left atrial pressure, left atrial enlargement, mild aortic stenosis, [id number] aortic regurgitation. No mitral regurgitation. ASSESSMENT AND PLAN: 1. Gastrointestinal bleed with severe anemia (improved) and thrombocytopenia, a large ulcer in the duodenal bulb: Gastroenterology following. Hemoglobin 7.6, hematocrit 24.1. Continue IV octreotide and Protonix. Fecal occult blood test positive. Any additional blood products should be given during dialysis if dialysis is to continue. Platelets 128 (157, 126), monitor. Continue iron sucrose and vitamin B12. 2. Acute kidney injury, on hemodialysis, status post hyperkalemia. Nephrology following. Appreciate recommendations. Potassium level was 6.3 on 06/26, improved. 3. Metabolic alkalosis, status post severe metabolic acidosis, serum bicarbonate 34 (34, 20, 14). Defer to Nephrology and hemodialysis per Nephrology's recommendations. 4. Coronavirus-19. Wean supplemental oxygen to room air as tolerated. We will hold Decadron as the patient is generally asymptomatic. She is not a candidate for remdesivir. 5. Uncontrolled type 2 diabetes mellitus with hyperglycemia. Hemoglobin A1c 4.9%. Gastroenterology has advanced diet from clear liquid to full liquid diet. Anion gap improved at 11.2 (10.5, 20.1). Continue to monitor fingerstick blood glucose levels. 6. Paroxysmal atrial fibrillation. Cardiology following. Anticoagulation held due to acute gastrointestinal bleed. No aspirin given. Acute anemia. 7. Uncontrolled hypertension. Blood pressures have been elevated, systolic blood pressure 187. Cardiology and Nephrology following. Per echocardiogram, ejection fraction between 60% and 65%. 8. Mild acute hypokalemia. Potassium level 3.2. Defer to Nephrology. *Prophylaxis: Octreotide, Protonix, and SCDs. Disposition: Transfer to floor. Billing code [id number]. Time spent 35 minutes. Dictated by Naga Toribio NP Manolo Walton MD HWP/MODL /[id number]
--- NOTE | 2020-07-03 23:27 | Progress Note ---
DATE: 07/01/2020 SUBJECTIVE: The patient remains weak. Oxygen saturation 91% on room air during encounter. She is seen in the [facility] intermediate care unit, room 186. She has been tolerating her diet well. No new complaints. OBJECTIVE: VITAL SIGNS: Temperature 98.6, pulse is 74, blood pressure 177/77, respirations 18, and oxygen saturation 96%. GENERAL: The patient is supine, pale. LUNGS: Respirations nonlabored. Clear to auscultation. She is on 2 L of oxygen via nasal cannula. HEENT: EOMI. NECK: Supple. No JVD. CARDIOVASCULAR: Regular rate and rhythm without murmur. Right Trialysis catheter. Octreotide infusing at 50 mcg/hour. ABDOMEN: Bowel sounds positive. Soft, nontender. She has a Zamudio catheter with ashleigh urine. EXTREMITIES: No pitting edema. No clubbing, cyanosis, or signs of DVT. NEUROLOGIC: Mild confusion. Nonfocal. DIAGNOSTIC STUDIES: 1. Laboratory data: WBCs 7.55, hemoglobin 8.4, hematocrit 27.1, platelets 134. Sodium 137, potassium 3.5, chloride 99, CO2 of 30, anion gap 11.5, BUN 35, creatinine 3.02, estimated GFR 15, glucose 131, calcium 7.6. Fingerstick blood glucose level 145. 2. Imaging: No new chest x-ray results. 3. Echocardiogram done 06/28 showed an ejection fraction between 60% to 65%. ASSESSMENT AND PLAN: 1. Gastrointestinal bleed with severe anemia (improved) and thrombocytopenia, large ulcer in the duodenal bulb. Gastroenterology following. Today hemoglobin 8.4, hematocrit 27.1, platelets 134. Labs ordered for tomorrow morning. 2. Acute kidney injury. BUN 35, creatinine 3.02, estimated GFR 15, improving. Right Trialysis catheter remains in place. Not sure if outpatient hemodialysis chair is needed. I will ask Case Management to follow up with Dr. Vieira to ensure that hemodialysis chair does not need to be set up prior to discharge. 3. Metabolic alkalosis, status post severe metabolic acidosis, serum bicarbonate 30 today. Hemodialysis p.r.n. per Nephrology. 4. Coronavirus disease-19. Continue to hold Decadron as patient is asymptomatic. She is not a candidate for remdesivir. Wean supplemental oxygen to room air as tolerated. we will add vitamin C. 5. Uncontrolled type 2 diabetes mellitus with hyperglycemia. Serum glucose 131, hemoglobin A1c 4.9%. Continue GI soft 1800-calorie renal ADA diet with Nepro 1 can t.i.d. Monitor FSBG. 6. Paroxysmal atrial fibrillation. Cardiology following. No anticoagulation needed at this time due to gastrointestinal bleeding. No aspirin given her anemia. 7. Controlled hypertension, 177/77 today. Cardiology following. EF 60% to 65%. Monitor BP. 8. Acute hypomagnesemia. Magnesium level 06/30 1.5. Defer to Nephrology. 9. Acute hypokalemia. Potassium level 3.5. Defer to Nephrology. *Prophylaxis: Octreotide, Protonix, sucralfate, and SCDs. Billing code [id number]. Time spent 35 minutes. Dictated by Naga Toribio NP MD JENNY LoraP/MODL /[id number]
--- NOTE | 2020-07-03 23:57 | Progress Note ---
DATE: 06/30/2020 SUBJECTIVE: Oxygen was removed and oxygen saturation is 94% on room air. There is no cough. The patient states "arms are a bit swollen, and I have abdominal discomfort." She is on a GI soft diet and has been eating well. She is weak. The patient reports "tired of being in bed." She had one black bowel movement today. No nausea or vomiting. OBJECTIVE: VITAL SIGNS: Temperature 98.9, pulse 70, blood pressure 151/85, respirations 17, oxygen saturation 92%. GENERAL: Supine. Pale. LUNGS: Respirations nonlabored. Lungs are clear to auscultation. She is on 2 L of oxygen via nasal cannula. HEENT: EOMI. Sclerae anicteric. NECK: Supple. No JVD. CARDIOVASCULAR: Regular rate and rhythm without murmur. Right trialysis catheter. ABDOMEN: Bowel sounds positive. Soft, nontender. She has a Zamudio catheter with ashleigh urine. EXTREMITIES: No pitting edema. No clubbing, cyanosis, or signs of DVT. NEUROLOGIC: Mild confusion, nonfocal. DIAGNOSTIC STUDIES: Laboratory data; WBC 6.74, hemoglobin 7.7, hematocrit 23.4, platelets 125. Sodium 139, potassium 3.3, chloride 100, carbon dioxide 33, BUN 29, creatinine 2.93, estimated GFR 16, glucose 126, calcium 7.3, magnesium level 1.5, total bilirubin 0.7, AST 8, ALT 7, alkaline phosphatase 58, total protein 4.3, albumin 2.1. Fingerstick blood glucose levels 133, 253, 186. Imaging, no new chest x-ray results. ASSESSMENT AND PLAN: 1. Gastrointestinal bleed with severe anemia (improved) and thrombocytopenia, large ulcer in the duodenal bulb: No active bleeding per Gastrointestinal. Today hemoglobin 7.7, hematocrit 23.5, platelets 125. Continue vitamin B12 and iron sucrose. Monitor. 2. Acute kidney injury. The patient has had hemodialysis per Nephrology. Continue to monitor renal function. Today, BUN 29, creatinine 2.93, estimated GFR 16. 3. Metabolic alkalosis, status post severe metabolic acidosis. Serum bicarbonate 33. Defer to Nephrology. 4. Coronavirus disease-19. Decadron held as the patient is asymptomatic. She is not a candidate for remdesivir. Wean supplemental oxygen to room air as tolerated. 5. Uncontrolled type 2 diabetes mellitus with hyperglycemia. Hemoglobin A1c 4.9%. Diet has been advanced by Gastrointestinal to a gastrointestinal soft diet. Continue to monitor FSBG. I will change diet to gastrointestinal soft 1800-calorie renal ADA diet with Nepro one can t.i.d. 6. Paroxysmal atrial fibrillation, heart rate 70. Cardiology following. No anticoagulation needed at this time due to acute gastrointestinal bleed. 7. Controlled hypertension. Blood pressure better controlled than yesterday 151/85. Ejection fraction between 60% and 65%. 8. Acute hypomagnesemia. Magnesium level 1.5. Defer to Nephrology. 9. Acute hypokalemia. Potassium level 3.3. Defer to Nephrology. 10. Prophylaxis; octreotide, Protonix, sucralfate, and SCDs. Billing code [id number]. Time spent 35 minutes. Dictated by Naga Toribio NP MD CORBIN Lora/ANNABELLE /[id number]
--- NOTE | 2020-07-05 19:27 | Discharge Summary ---
ADMISSION DIAGNOSES: 1. Acute blood loss anemia secondary to gastrointestinal bleed. 2. Acute kidney injury due to acute tubular necrosis. 3. Hyperkalemia. 4. Severe metabolic acidosis. 5. Type 2 diabetes with hyperglycemia. 6. Hypertension. DISCHARGE DIAGNOSES: 1. Acute blood loss anemia secondary to gastrointestinal bleed. 2. Acute kidney injury due to acute tubular necrosis. 3. Hyperkalemia. 4. Severe metabolic acidosis. 5. Type 2 diabetes with hyperglycemia. 6. Hypertension. 7. Paroxysmal atrial fibrillation. 8. Coronavirus disease-19 pneumonia, present on admission with acute respiratory distress. 9. Esophagitis. 10. Gastritis. 11. Duodenal ulcer. HISTORY: Hypertension and diabetes. SOCIAL HISTORY: Noncontributory. HOSPITAL COURSE: A 69-year-old female, admits to the ER with reports of having stool all over the house. She was on blood thinners and noted blood in the toilet. She denies shortness of breath or abdominal pain. She does admit to poor p.o. intake. On admission, the patient's hemoglobin was 4 and then dropped to 3.2. She had a Trialysis catheter placed and was transfused blood. Chest x-ray showed cardiomegaly and central pulmonary vascular congestion. The patient's costa virus came back positive. Stool for blood was positive. The patient was taken for an EGD, which showed mild distal esophagitis, gastritis, and a large ulcer on the superior wall of the duodenal bulb. She was started on Protonix and Carafate. The patient was found to have a paroxysm atrial fibrillation and Cardiology was consulted. After two days of dialysis, the patient's kidney function improved. The Trialysis catheter was discontinued per Nephrology recommendation. The patient's echo showed an EF of 60% to 65%. The patient is requiring 2 L of oxygen due to COVID. She is not having any cough or dyspnea on exertion. At time of discharge, she does not require home oxygen. She was discharged with prescriptions for albuterol, Eliquis, Ceftin, negative on nifedipine, Protonix, promethazine and sucralfate. She will follow up with primary care in 1-2 weeks, cardiology in 1 to 2 weeks, and Infectious Disease in 1 to 2 weeks. At time of discharge, she is tolerating diet and feeling ready to go. She understands discharge instructions and agrees to plan. Vital signs are stable. The patient is afebrile. Dictated by Maggie Paulson, TRACK GREASER MD KIKE Lora/MODL /[id number]
== END 2020-07-03 13:59 | disposition home or self-care (01) | DRG 177 ==
LOC: ER 12:09 → ERHOLD 12:26 → ICU 14:38 → IMCU 06-29 21:30
PROVIDERS: ADMIT Internal Medicine; ATTEND Internal Medicine
PROC: 30233N1 Transfusion of Nonautologous Red Blood Cells into Peripheral Vein, Percutaneous Approach (ICD-10-PCS; 2020-06-26)
PROC: 02HV33Z Insertion of Infusion Device into Superior Vena Cava, Percutaneous Approach (ICD-10-PCS; 2020-06-26)
PROC: B548ZZA Ultrasonography of Superior Vena Cava, Guidance (ICD-10-PCS; 2020-06-26)
PROC: 5A1D70Z Performance of Urinary Filtration, Intermittent, Less than 6 Hours Per Day (ICD-10-PCS; 2020-06-26)
PROC: 30233R1 Transfusion of Nonautologous Platelets into Peripheral Vein, Percutaneous Approach (ICD-10-PCS; principal; 2020-06-27)
PROC: 5A1D70Z Performance of Urinary Filtration, Intermittent, Less than 6 Hours Per Day (ICD-10-PCS; 2020-06-27)
PROC: 0DJ08ZZ Inspection of Upper Intestinal Tract, Via Natural or Artificial Opening Endoscopic (ICD-10-PCS; 2020-06-28)
DX: U07.1 COVID-19 (principal); K26.0 Acute duodenal ulcer with hemorrhage; J12.89 Other viral pneumonia; I21.A1 Myocardial infarction type 2; N17.0 Acute kidney failure with tubular necrosis; E87.2 Acidosis; N17.9 Acute kidney failure, unspecified; D62 Acute posthemorrhagic anemia; E87.3 Alkalosis; D50.0 Iron deficiency anemia secondary to blood loss (chronic); E87.5 Hyperkalemia; I10 Essential (primary) hypertension; Z83.3 Family history of diabetes mellitus; Z79.84 Long term (current) use of oral hypoglycemic drugs; E11.65 Type 2 diabetes mellitus with hyperglycemia; D69.6 Thrombocytopenia, unspecified; I48.0 Paroxysmal atrial fibrillation; K27.9 Peptic ulcer, site unspecified, unspecified as acute or chronic, without hemorrhage or perforation; K29.70 Gastritis, unspecified, without bleeding; K20.9 Esophagitis, unspecified; T80.92XA Unspecified transfusion reaction, initial encounter; E87.6 Hypokalemia; E83.42 Hypomagnesemia
CPT/HCPCS: 36415; 43239; 71045; 74470; 80048; 80053; 80061; 81001; 82140; 82270; 82550; 82553; 82607; 82728; 82746; 82948; 83036; 83540; 83605; 83615; 83735; 84100; 84132; 84443; 84466; 84484; 85007; 85025; 85027; 85045; 85610; 85730; 86078; 86850; 86900; 86920; 90962; 93005; 93306; 96361; 99285; J0171; J0360; J0610; J0696; J1100; J1200; J1610; J1644; J1750; J1756; J1817; J1940; J2001; J2353; J2354; J2405; J3420; J7030; J7040; J7050; J7070; J7799; P9016; P9034; U0002

== ENCOUNTER 2020-08-21 18:09 | Inpatient (IN) | payer MEDICARE, BC, OTHER ==
[~2020-08-21] VITALS: Ht 157.5 cm; Wt 66.7 kg
[~2020-08-21 18:09] MED LIST changes: +ALBUTEROL HFA INH; +CARAFATE1 GM PO; +CEFTIN PO; +DECADRON6 MG PO; +ELIQUIS2.5 MG PO; +NIFEDIPINE ER30 M1 PO; +PANTOPRAZOLE SO40 MG PO; +PROMETHAZINE HC25 M1 PO
[2020-08-21] MEDS ORDERED: NITROGLYCERIN 2% OINT 1 GM PKT TOP ONE (18:15)
[2020-08-21] MEDS ORDERED: FUROSEMIDE INJ 10 MG/ML 4 ML VIAL IV ONE (18:15)
[2020-08-21] MEDS ORDERED: ALBUTEROL SULF 0.083% NEB SOLN 3 ML NEB NEB STA (18:16)
[2020-08-21 18:35] LABS: BASOPHILS % 0.4 % (0.0-1.0); EOSINOPHILS # (AUTO) 0.4 (0.0-0.4); EOSINOPHILS % 4.2 % (0.0-6.0); HEMATOCRIT 30.3 % (34.2-44.1); HEMOGLOBIN 8.9 g/dL (12.0-16.0); LYMPHOCYTES # (AUTO) 2.5 (1.0-3.2); LYMPHOCYTES % 23.4 % (18.0-39.1); MEAN CORPUSCULAR HEMOGLOBIN 26.6 pg (28-32); MEAN CORPUSCULAR HGB CONC 29.4 g/dL (31-35); MEAN CORPUSCULAR VOLUME 90.4 fL (81-99); MONOCYTES # (AUTO) 0.5 (0.2-0.8); MONOCYTES % 4.9 % (4.4-11.3); NEUTROPHILS % 66.8 % (38.7-80.0); PLATELET COUNT 194 x10e3/uL (140-360); RED BLOOD COUNT 3.35 x10e6/uL (3.6-5.1); RED CELL DISTRIBUTION WIDTH 17.2 % (11.7-14.4)
[2020-08-21 18:47] LABS: INR 1.09; PROTHROMBIN TIME 14.7 seconds (11.9-14.5)
[2020-08-21 18:49] LABS: PARTIAL THROMBOPLASTIN TIME 42.1 seconds (23.8-35.5)
[2020-08-21 18:58] LABS: ALBUMIN 4.3 g/dL (3.5-5.0); ALBUMIN/GLOBULIN RATIO 1.5 (0.8-2.0); ANION GAP 15.9 mmol/L (8-16); CALCIUM 8.3 mg/dL (8.4-10.2); CREATININE, SERUM 3.42 mg/dL (0.57-1.11)
[2020-08-21 18:59] LABS: POTASSIUM 5.9 mmol/L (3.5-5.1)
[2020-08-21 19:05] LABS: CREATINE KINASE MB 3.9 ng/mL (0-5.0)
[2020-08-21 19:07] LABS: BILIRUBIN,URINE NEGATIVE (NEGATIVE); CLARITY,URINE SL CLOUDY (CLEAR); COLOR,URINE YELLOW (YELLOW); KETONES,URINE NEGATIVE (NEGATIVE); LEUKOCYTE ESTERASE ,URINE NEGATIVE (NEGATIVE); NITRITE,URINE NEGATIVE (NEGATIVE); PROTEIN,URINE DIPSTICK >=300 (NEGATIVE); URINE UROBILINOGEN 0.2 mg/dL (0.2 - 1)
[2020-08-21 19:20] LABS: AMORPHOUS SEDIMENT,URINE MODERATE (FEW); BACTERIA,URINE FEW /HPF; EPITHELIAL CELLS,URINE FEW /LPF; RBC,URINE 0-5 /HPF (0-5)
[2020-08-21] MEDS ORDERED: DEXTROSE 50% SYRINGE 50 ML IV PRN (19:45)
[2020-08-21] MEDS ORDERED: ONDANSETRON HCL INJ 2MG/ML 2ML 2 MG/ML VIAL IV PRN (19:45)
[2020-08-21] MEDS: FUROSEMIDE INJ 100 MG in SODIUM CHLORIDE 0.9% 100 ML 90 ML IV SCH (19:55)
[2020-08-21] MEDS: INSULIN REGULAR, HUMAN 100 UNIT/1 ML 3ML VIAL SQ SCH (21:00)
[2020-08-21 23:00] VITALS: BP 169/102
[2020-08-21 23:30] VITALS: BP 183/74
[2020-08-22] VITALS (11 sets, daily range): BP systolic 150–183; BP diastolic 61–91
[2020-08-22] MEDS: FUROSEMIDE INJ 100 MG in SODIUM CHLORIDE 0.9% 100 ML 90 ML IV SCH ×5 (00:45→22:43)
[2020-08-22 04:47] LABS: BASOPHILS % 0.2 % (0.0-1.0); EOSINOPHILS # (AUTO) 0.2 (0.0-0.4); EOSINOPHILS % 4.1 % (0.0-6.0); HEMATOCRIT 24.2 % (34.2-44.1); HEMOGLOBIN 7.4 g/dL (12.0-16.0); LYMPHOCYTES % 24.6 % (18.0-39.1); MEAN CORPUSCULAR HEMOGLOBIN 26.5 pg (28-32); MEAN CORPUSCULAR HGB CONC 30.6 g/dL (31-35); MEAN CORPUSCULAR VOLUME 86.7 fL (81-99); MONOCYTES # (AUTO) 0.4 (0.2-0.8); MONOCYTES % 9.2 % (4.4-11.3); NEUTROPHILS # (AUTO) 2.6 (2.1-6.9); NEUTROPHILS % 61.7 % (38.7-80.0); PLATELET COUNT 126 x10e3/uL (140-360); RED BLOOD COUNT 2.79 x10e6/uL (3.6-5.1); RED CELL DISTRIBUTION WIDTH 16.8 % (11.7-14.4)
[2020-08-22 05:04] LABS: ALBUMIN 3.4 g/dL (3.5-5.0); ALBUMIN/GLOBULIN RATIO 1.5 (0.8-2.0); ANION GAP 14.1 mmol/L (8-16); CALCIUM 8.2 mg/dL (8.4-10.2); CREATININE, SERUM 3.36 mg/dL (0.57-1.11); POTASSIUM 5.1 mmol/L (3.5-5.1)
[2020-08-22 05:31] LABS: CREATINE KINASE MB 2.8 ng/mL (0-5.0)
[2020-08-22] MEDS: INSULIN REGULAR, HUMAN 100 UNIT/1 ML 3ML VIAL SQ SCH (06:49)
[2020-08-22] MEDS: HYDRALAZINE HCL 20 MG/ML VIAL IV PRN (08:39)
[2020-08-22] MEDS ORDERED: DEXTROSE 50% SYRINGE 50 ML IV PRN (09:15)
[2020-08-22] MEDS: PANTOPRAZOLE 40 MG 10ML VIAL IV SCH (09:59)
[2020-08-22] MEDS: METOPROLOL SUCCINATE 50 MG TAB XL PO SCH ×2 (10:01→21:49)
[2020-08-22] MEDS ORDERED: SOD POLYSTYRENE SULFONATE SUSP 15 GM/60 ML BTL PO STA (11:18)
[2020-08-22 11:19] LABS: ABG PCO2 37 mmHg (35-45); ABG PH 7.35 (7.35-7.45); ABG PO2 176 mmHg (80-105)
[2020-08-22 11:20] LABS: ABG HCO3 21 mmol/L (22-26); ABG TCO2 22
[2020-08-22] MEDS: INSULIN LISPRO 100 UNIT/1 ML 3ML VIAL SQ SCH ×3 (11:24→21:00)
[2020-08-22] MEDS ORDERED: LACTULOSE SYRUP 20 GM/30 ML UDC PO ONE (11:30)
[2020-08-22 12:44] LABS: CREATINE KINASE MB 2.8 ng/mL (0-5.0)
[2020-08-22] MEDS: HYDRALAZINE HCL 10 MG TAB PO SCH ×2 (13:58→22:10)
[2020-08-22] MEDS: NIFEDIPINE CR 30 MG TAB PO SCH ×2 (14:31→21:48)
[2020-08-22] MEDS: SODIUM BICARBONATE 650 MG TAB PO SCH (16:21)
[2020-08-22] MEDS: HEPARIN SOD (PORCINE) 5,000 UNIT/ML VIAL SC SCH (21:50)
[2020-08-23] VITALS (7 sets, daily range): BP systolic 141–171; BP diastolic 69–90
[2020-08-23 02:43] LABS: CREATININE,URINE RANDOM 27.71 mg/dL (47-110); TOTAL PROTEIN, URINE 186.1 mg/dL (1-14)
[2020-08-23] MEDS: FUROSEMIDE INJ 100 MG in SODIUM CHLORIDE 0.9% 100 ML 90 ML IV SCH ×3 (03:27→13:22)
[2020-08-23] MEDS: HYDRALAZINE HCL 10 MG TAB PO SCH ×3 (06:15→21:07)
[2020-08-23 06:18] LABS: BASOPHILS % 0.4 % (0.0-1.0); EOSINOPHILS # (AUTO) 0.3 (0.0-0.4); EOSINOPHILS % 5.9 % (0.0-6.0); HEMATOCRIT 29.5 % (34.2-44.1); LYMPHOCYTES % 18.8 % (18.0-39.1); MEAN CORPUSCULAR HEMOGLOBIN 26.8 pg (28-32); MEAN CORPUSCULAR HGB CONC 30.5 g/dL (31-35); MEAN CORPUSCULAR VOLUME 87.8 fL (81-99); MONOCYTES # (AUTO) 0.4 (0.2-0.8); MONOCYTES % 8.1 % (4.4-11.3); NEUTROPHILS # (AUTO) 3.6 (2.1-6.9); NEUTROPHILS % 66.6 % (38.7-80.0); PLATELET COUNT 160 x10e3/uL (140-360); RED BLOOD COUNT 3.36 x10e6/uL (3.6-5.1); RED CELL DISTRIBUTION WIDTH 17.2 % (11.7-14.4)
[2020-08-23 06:39] LABS: ALBUMIN 3.8 g/dL (3.5-5.0); ALBUMIN/GLOBULIN RATIO 1.5 (0.8-2.0); ANION GAP 15.4 mmol/L (8-16); CALCIUM 8.7 mg/dL (8.4-10.2); CREATININE, SERUM 3.55 mg/dL (0.57-1.11); POTASSIUM 4.4 mmol/L (3.5-5.1)
[2020-08-23] MEDS: INSULIN LISPRO 100 UNIT/1 ML 3ML VIAL SQ SCH ×4 (07:14→21:08)
[2020-08-23] MEDS: PANTOPRAZOLE 40 MG 10ML VIAL IV SCH (09:19)
[2020-08-23] MEDS: SODIUM BICARBONATE 650 MG TAB PO SCH ×2 (09:20→17:17)
[2020-08-23] MEDS: NIFEDIPINE CR 30 MG TAB PO SCH ×2 (09:23→21:06)
[2020-08-23] MEDS: METOPROLOL SUCCINATE 50 MG TAB XL PO SCH ×2 (09:23→21:07)
[2020-08-23] MEDS: HEPARIN SOD (PORCINE) 5,000 UNIT/ML VIAL SC SCH ×2 (09:30→21:09)
[2020-08-23] MEDS: BUMETANIDE 1 MG TAB PO SCH ×2 (17:17→21:06)
[2020-08-24 03:00] VITALS: BP 150/60
[2020-08-24] MEDS: HYDRALAZINE HCL 10 MG TAB PO SCH ×3 (05:49→22:00)
[2020-08-24 05:57] LABS: ALBUMIN 3.4 g/dL (3.5-5.0); ALBUMIN/GLOBULIN RATIO 1.1 (0.8-2.0); ANION GAP 16.8 mmol/L (8-16); CALCIUM 8.9 mg/dL (8.4-10.2); CREATININE, SERUM 3.62 mg/dL (0.57-1.11); POTASSIUM 3.8 mmol/L (3.5-5.1)
[2020-08-24] MEDS: INSULIN LISPRO 100 UNIT/1 ML 3ML VIAL SQ SCH ×4 (07:10→21:00)
[2020-08-24 07:11] VITALS: BP 171/67
[2020-08-24 07:17] VITALS: BP 171/67
[2020-08-24] MEDS: NIFEDIPINE CR 30 MG TAB PO SCH ×2 (09:59→21:00)
[2020-08-24] MEDS: PANTOPRAZOLE 40 MG 10ML VIAL IV SCH (09:59)
[2020-08-24] MEDS: SODIUM BICARBONATE 650 MG TAB PO SCH ×2 (09:59→17:17)
[2020-08-24] MEDS: BUMETANIDE 1 MG TAB PO SCH ×5 (09:59→17:31)
[2020-08-24] MEDS: METOPROLOL SUCCINATE 50 MG TAB XL PO SCH (09:59)
[2020-08-24] MEDS: HEPARIN SOD (PORCINE) 5,000 UNIT/ML VIAL SC SCH ×2 (10:00→21:00)
[2020-08-24 12:32] VITALS: BP 161/65
[2020-08-24 17:12] VITALS: BP 154/69
[2020-08-24] MEDS: CARVEDILOL 12.5 MG TAB PO SCH (17:17)
[2020-08-24 18:01] LABS: TOTAL PROTEIN, URINE 87.7 mg/dL (1-14)
[2020-08-24 18:34] LABS: CREATININE,URINE RANDOM 27.72 mg/dL (47-110)
[2020-08-24 20:00] VITALS: BP 164/66
[2020-08-25] VITALS (8 sets, daily range): BP systolic 148–189; BP diastolic 57–79
[2020-08-25] MEDS: HYDRALAZINE HCL 10 MG TAB PO SCH ×3 (06:00→20:26)
[2020-08-25 07:19] LABS: BASOPHILS % 0.4 % (0.0-1.0); EOSINOPHILS # (AUTO) 0.4 (0.0-0.4); HEMATOCRIT 29.7 % (34.2-44.1); LYMPHOCYTES # (AUTO) 1.3 (1.0-3.2); LYMPHOCYTES % 25.5 % (18.0-39.1); MEAN CORPUSCULAR HEMOGLOBIN 25.9 pg (28-32); MEAN CORPUSCULAR HGB CONC 30.3 g/dL (31-35); MEAN CORPUSCULAR VOLUME 85.6 fL (81-99); MONOCYTES # (AUTO) 0.7 (0.2-0.8); MONOCYTES % 13.4 % (4.4-11.3); NEUTROPHILS # (AUTO) 2.7 (2.1-6.9); NEUTROPHILS % 53.5 % (38.7-80.0); PLATELET COUNT 145 x10e3/uL (140-360); RED BLOOD COUNT 3.47 x10e6/uL (3.6-5.1); RED CELL DISTRIBUTION WIDTH 16.6 % (11.7-14.4)
[2020-08-25] MEDS: INSULIN LISPRO 100 UNIT/1 ML 3ML VIAL SQ SCH ×4 (07:30→20:49)
[2020-08-25 07:41] LABS: ALBUMIN 3.3 g/dL (3.5-5.0); ALBUMIN/GLOBULIN RATIO 1.1 (0.8-2.0); ANION GAP 18.1 mmol/L (8-16); CALCIUM 8.8 mg/dL (8.4-10.2); CREATININE, SERUM 3.78 mg/dL (0.57-1.11); POTASSIUM 4.1 mmol/L (3.5-5.1)
[2020-08-25] MEDS ORDERED: ONDANSETRON HCL 4 MG ORAL DISINTEGRATING TAB PO PRN (08:30)
[2020-08-25] MEDS: BUMETANIDE 1 MG TAB PO SCH ×2 (09:20→17:01)
[2020-08-25] MEDS: SODIUM BICARBONATE 650 MG TAB PO SCH ×2 (09:21→17:01)
[2020-08-25] MEDS: CARVEDILOL 12.5 MG TAB PO SCH ×2 (09:21→17:01)
[2020-08-25] MEDS: PANTOPRAZOLE SOD 40 MG TABEC PO SCH (09:21)
[2020-08-25] MEDS: NIFEDIPINE CR 30 MG TAB PO SCH ×2 (09:21→20:25)
[2020-08-25] MEDS: HEPARIN SOD (PORCINE) 5,000 UNIT/ML VIAL SC SCH ×2 (09:22→20:27)
[2020-08-25] MEDS: HYDRALAZINE HCL 20 MG/ML VIAL IV PRN (22:05)
[2020-08-25] MEDS ORDERED: LABETALOL HCL 20 ML ONE (23:15)
[2020-08-25] MEDS ORDERED: LABETALOL HCL 5 MG/ML 20ML VIAL IV PRN (23:15)
[2020-08-26] VITALS (8 sets, daily range): BP systolic 141–156; BP diastolic 59–100
[2020-08-26 05:25] LABS: BASOPHILS % 0.2 % (0.0-1.0); EOSINOPHILS # (AUTO) 0.2 (0.0-0.4); EOSINOPHILS % 2.8 % (0.0-6.0); HEMATOCRIT 27.6 % (34.2-44.1); HEMOGLOBIN 8.7 g/dL (12.0-16.0); LYMPHOCYTES # (AUTO) 1.3 (1.0-3.2); LYMPHOCYTES % 23.6 % (18.0-39.1); MEAN CORPUSCULAR HEMOGLOBIN 26.3 pg (28-32); MEAN CORPUSCULAR HGB CONC 31.5 g/dL (31-35); MEAN CORPUSCULAR VOLUME 83.4 fL (81-99); MONOCYTES # (AUTO) 0.4 (0.2-0.8); MONOCYTES % 7.2 % (4.4-11.3); NEUTROPHILS # (AUTO) 3.6 (2.1-6.9); NEUTROPHILS % 65.8 % (38.7-80.0); PLATELET COUNT 140 x10e3/uL (140-360); RED BLOOD COUNT 3.31 x10e6/uL (3.6-5.1); RED CELL DISTRIBUTION WIDTH 16.4 % (11.7-14.4)
[2020-08-26 05:55] LABS: ALBUMIN/GLOBULIN RATIO 1.1 (0.8-2.0); ANION GAP 16.6 mmol/L (8-16); CALCIUM 8.5 mg/dL (8.4-10.2); CREATININE, SERUM 3.75 mg/dL (0.57-1.11); POTASSIUM 3.6 mmol/L (3.5-5.1)
[2020-08-26] MEDS: HYDRALAZINE HCL 10 MG TAB PO SCH (06:13)
[2020-08-26] MEDS: INSULIN LISPRO 100 UNIT/1 ML 3ML VIAL SQ SCH ×4 (07:30→22:14)
[2020-08-26] MEDS: BUMETANIDE 1 MG TAB PO SCH ×2 (09:22→17:18)
[2020-08-26] MEDS: CARVEDILOL 12.5 MG TAB PO SCH ×2 (09:22→17:19)
[2020-08-26] MEDS: PANTOPRAZOLE SOD 40 MG TABEC PO SCH (09:23)
[2020-08-26] MEDS: NIFEDIPINE CR 30 MG TAB PO SCH ×2 (09:23→22:12)
[2020-08-26] MEDS: SODIUM BICARBONATE 650 MG TAB PO SCH ×2 (09:23→17:19)
[2020-08-26] MEDS: HEPARIN SOD (PORCINE) 5,000 UNIT/ML VIAL SC SCH ×2 (09:24→22:13)
[2020-08-26] MEDS: HYDRALAZINE HCL 25 MG TAB PO SCH ×2 (14:30→22:13)
[2020-08-27] VITALS (8 sets, daily range): BP systolic 122–156; BP diastolic 54–66
[2020-08-27 05:13] LABS: ANION GAP 18.4 mmol/L (8-16); CALCIUM 8.6 mg/dL (8.4-10.2); CREATININE, SERUM 4.24 mg/dL (0.57-1.11); POTASSIUM 3.4 mmol/L (3.5-5.1)
[2020-08-27] MEDS: HYDRALAZINE HCL 25 MG TAB PO SCH ×3 (06:19→22:35)
[2020-08-27] MEDS: BUMETANIDE 1 MG TAB PO SCH (08:44)
[2020-08-27] MEDS: INSULIN LISPRO 100 UNIT/1 ML 3ML VIAL SQ SCH ×4 (08:44→22:35)
[2020-08-27] MEDS ORDERED: INSULIN LISPRO 100 UNIT/1 ML 3ML VIAL SQ SCH (08:45)
[2020-08-27] MEDS: CARVEDILOL 12.5 MG TAB PO SCH ×2 (08:46→19:22)
[2020-08-27] MEDS: NIFEDIPINE CR 30 MG TAB PO SCH ×2 (08:47→20:36)
[2020-08-27] MEDS: SODIUM BICARBONATE 650 MG TAB PO SCH ×2 (08:47→19:22)
[2020-08-27] MEDS: PANTOPRAZOLE SOD 40 MG TABEC PO SCH (08:47)
[2020-08-27] MEDS: HEPARIN SOD (PORCINE) 5,000 UNIT/ML VIAL SC SCH ×2 (08:48→20:37)
[2020-08-28] VITALS: BP 156/62
[2020-08-28 04:00] VITALS: BP 135/54
[2020-08-28] MEDS: HYDRALAZINE HCL 25 MG TAB PO SCH (06:12)
[2020-08-28] MEDS: INSULIN LISPRO 100 UNIT/1 ML 3ML VIAL SQ SCH (07:30)
[2020-08-28 08:00] VITALS: BP 154/56
[2020-08-28] MEDS: CARVEDILOL 12.5 MG TAB PO SCH (08:34)
[2020-08-28] MEDS: SODIUM BICARBONATE 650 MG TAB PO SCH (08:35)
[2020-08-28] MEDS: NIFEDIPINE CR 30 MG TAB PO SCH (08:35)
[2020-08-28] MEDS: PANTOPRAZOLE SOD 40 MG TABEC PO SCH (08:35)
[2020-08-28] MEDS: HEPARIN SOD (PORCINE) 5,000 UNIT/ML VIAL SC SCH (08:36)
[2020-08-28] MEDS ORDERED: SODIUM BICARBO650 MG PO (08:39)
[2020-08-28] MEDS ORDERED: BUMETANIDE2 MG PO (08:40)
[2020-08-28] MEDS ORDERED: COREG25 MG PO (08:41)
[2020-08-28] MEDS ORDERED: POTASSIUM CHLO10 ME1 PO (08:41)
[2020-08-28] MEDS ORDERED: HYDRALAZINE HCL25 MG PO (08:42)
[2020-08-28] MEDS ORDERED: ATORVASTATIN CA10 MG PO (08:42)
[2020-08-28 09:00] VITALS: BP 154/56
[2020-08-28] MEDS ORDERED: INFLUENZA VIRUS VAC SPLIT INJ 0.5 ML SYR IM ONE (09:30)
[2020-09-19] MEDS ORDERED: LABETALOL HCL200 MG PO (12:23)
== END 2020-08-28 09:25 | disposition home or self-care (01) | DRG 291 ==
LOC: ER 18:26 → ERHOLD 19:52 → IMCU 23:04
PROVIDERS: ADMIT Family Medicine; ATTEND Family Medicine
PROC: 5A09357 Assistance with Respiratory Ventilation, Less than 24 Consecutive Hours, Continuous Positive Airway Pressure (ICD-10-PCS; principal; 2020-08-21)
PROC: 5A1D70Z Performance of Urinary Filtration, Intermittent, Less than 6 Hours Per Day (ICD-10-PCS; 2020-08-28)
DX: I13.0 Hypertensive heart and chronic kidney disease with heart failure and stage 1 through stage 4 chronic kidney disease, or unspecified chronic kidney disease (principal); I50.43 Acute on chronic combined systolic (congestive) and diastolic (congestive) heart failure; J96.01 Acute respiratory failure with hypoxia; N17.9 Acute kidney failure, unspecified; J81.1 Chronic pulmonary edema; N18.4 Chronic kidney disease, stage 4 (severe); E87.5 Hyperkalemia; E11.22 Type 2 diabetes mellitus with diabetic chronic kidney disease; E78.5 Hyperlipidemia, unspecified; K21.00 Gastro-esophageal reflux disease with esophagitis, without bleeding; Z86.19 Personal history of other infectious and parasitic diseases; Z83.3 Family history of diabetes mellitus; Z82.49 Family history of ischemic heart disease and other diseases of the circulatory system; E11.21 Type 2 diabetes mellitus with diabetic nephropathy; D64.9 Anemia, unspecified; Z79.01 Long term (current) use of anticoagulants
CPT/HCPCS: 36415; 36600; 51700; 71045; 71046; 76604; 80048; 80053; 81001; 81050; 82550; 82553; 82570; 82575; 82805; 82948; 83880; 84132; 84156; 84484; 85025; 85610; 85730; 93005; 93306; 94640; 94660; 96365; 96372; 99285; J0360; J1644; J1940; U0002

== ENCOUNTER → 2020-09-19 | Day surgery (SDC) | payer MEDICARE, BC, OTHER ==
[~2020-09-19] MED LIST changes: +ATORVASTATIN CA10 MG PO; +BUMETANIDE2 MG PO; +COREG25 MG PO; +HYDRALAZINE HCL25 MG PO; +LABETALOL HCL200 MG PO; +LIDOCAINE HCL 2% LOCAL INJ 5 ML SDV VIAL INJ ONE; +POTASSIUM CHLO10 ME1 PO; +PROPOFOL IV EMULSION 10 MG/ML 20 ML VIAL ONE; +SODIUM BICARBO650 MG PO
[2020-09-19 12:45] LABS: BASOPHILS % 0.2 % (0.0-1.0); EOSINOPHILS # (AUTO) 0.2 (0.0-0.4); EOSINOPHILS % 3.7 % (0.0-6.0); HEMATOCRIT 31.4 % (34.2-44.1); HEMOGLOBIN 9.9 g/dL (12.0-16.0); LYMPHOCYTES # (AUTO) 1.3 (1.0-3.2); LYMPHOCYTES % 27.1 % (18.0-39.1); MEAN CORPUSCULAR HEMOGLOBIN 25.6 pg (28-32); MEAN CORPUSCULAR HGB CONC 31.5 g/dL (31-35); MEAN CORPUSCULAR VOLUME 81.1 fL (81-99); MONOCYTES # (AUTO) 0.5 (0.2-0.8); MONOCYTES % 9.6 % (4.4-11.3); NEUTROPHILS # (AUTO) 2.9 (2.1-6.9); PLATELET COUNT 139 x10e3/uL (140-360); RED BLOOD COUNT 3.87 x10e6/uL (3.6-5.1); RED CELL DISTRIBUTION WIDTH 15.7 % (11.7-14.4)
[2020-09-19 14:49] VITALS: BP 164/84
== END | disposition home or self-care (01) ==
LOC: OR 11:03
PROVIDERS: ATTEND Internal Medicine Gastroenterology
DX: K29.00 Acute gastritis without bleeding (principal); K31.7 Polyp of stomach and duodenum; K28.9 Gastrojejunal ulcer, unspecified as acute or chronic, without hemorrhage or perforation; K57.30 Diverticulosis of large intestine without perforation or abscess without bleeding; K20.90 Esophagitis, unspecified without bleeding; K21.9 Gastro-esophageal reflux disease without esophagitis; K44.9 Diaphragmatic hernia without obstruction or gangrene; K64.8 Other hemorrhoids; Z71.3 Dietary counseling and surveillance; D50.9 Iron deficiency anemia, unspecified; E66.9 Obesity, unspecified; E11.22 Type 2 diabetes mellitus with diabetic chronic kidney disease; I12.9 Hypertensive chronic kidney disease with stage 1 through stage 4 chronic kidney disease, or unspecified chronic kidney disease; N18.9 Chronic kidney disease, unspecified; M19.90 Unspecified osteoarthritis, unspecified site; Z68.30 Body mass index [BMI] 30.0-30.9, adult
CPT/HCPCS: 36415; 43239; 45378; 82948; 85025; J2001; J2704

== ENCOUNTER 2020-12-23 15:48 | Inpatient (IN) | payer MEDICARE, BC ==
[~2020-12-23] VITALS: Ht 157.5 cm; Wt 72.6 kg
[~2020-12-23 15:48] MED LIST changes: -LIDOCAINE HCL 2% LOCAL INJ 5 ML SDV VIAL INJ ONE; -PROPOFOL IV EMULSION 10 MG/ML 20 ML VIAL ONE
[2020-12-23] MEDS ORDERED: ASPIRIN 81 MG CHEW TAB PO ONE ×2 (16:30→17:30)
[2020-12-23 17:23] LABS: CREATINE KINASE MB 16.9 ng/mL (0-5.0)
[2020-12-23 17:36] LABS: BASOPHILS % 0.3 % (0.0-1.0); EOSINOPHILS # (AUTO) 0.1 (0.0-0.4); EOSINOPHILS % 1.1 % (0.0-6.0); HEMATOCRIT 27.3 % (34.2-44.1); HEMOGLOBIN 8.5 g/dL (12.0-16.0); LYMPHOCYTES # (AUTO) 0.7 (1.0-3.2); LYMPHOCYTES % 8.8 % (18.0-39.1); MEAN CORPUSCULAR HGB CONC 31.1 g/dL (31-35); MEAN CORPUSCULAR VOLUME 83.5 fL (81-99); MONOCYTES # (AUTO) 0.4 (0.2-0.8); MONOCYTES % 5.3 % (4.4-11.3); NEUTROPHILS # (AUTO) 6.4 (2.1-6.9); NEUTROPHILS % 84.2 % (38.7-80.0); PLATELET COUNT 133 x10e3/uL (140-360); RED BLOOD COUNT 3.27 x10e6/uL (3.6-5.1); RED CELL DISTRIBUTION WIDTH 16.9 % (11.7-14.4)
[2020-12-23 17:48] LABS: ALBUMIN 3.6 g/dL (3.5-5.0); ALBUMIN/GLOBULIN RATIO 1.2 (0.8-2.0); ANION GAP 19.1 mmol/L (8-16); CREATININE, SERUM 3.82 mg/dL (0.57-1.11); POTASSIUM 5.1 mmol/L (3.5-5.1)
[2020-12-23] MEDS ORDERED: METHYLPREDNISOLONE SOD SUCC 125 MG/2ML VIAL IV ONE (18:00)
[2020-12-23] MEDS ORDERED: ALBUTEROL/IPRATROPIUM 3 ML NEB NEB ONE (18:00)
[2020-12-23 18:18] LABS: ABG HCO3 19 mmol/L (22-26); ABG PCO2 40 mmHg (35-45); ABG PO2 84 mmHg (80-105); ABG TCO2 20
[2020-12-23] MEDS: HYDRALAZINE HCL 20 MG/ML VIAL IV PRN (22:54)
[2020-12-24] MEDS ORDERED: HYDRALAZINE HCL 20 MG/ML VIAL IV STA (01:51)
[2020-12-24 04:43] LABS: HEMATOCRIT 25.4 % (34.2-44.1); HEMOGLOBIN 7.8 g/dL (12.0-16.0); LYMPHOCYTES # (AUTO) 0.2 (1.0-3.2); LYMPHOCYTES % 3.8 % (18.0-39.1); MEAN CORPUSCULAR HEMOGLOBIN 26.3 pg (28-32); MEAN CORPUSCULAR HGB CONC 30.7 g/dL (31-35); MEAN CORPUSCULAR VOLUME 85.5 fL (81-99); MONOCYTES % 0.5 % (4.4-11.3); NEUTROPHILS # (AUTO) 3.7 (2.1-6.9); NEUTROPHILS % 94.7 % (38.7-80.0); PLATELET COUNT 113 x10e3/uL (140-360); RED BLOOD COUNT 2.97 x10e6/uL (3.6-5.1); RED CELL DISTRIBUTION WIDTH 16.7 % (11.7-14.4)
[2020-12-24 04:59] LABS: ANION GAP 19.4 mmol/L (8-16); CALCIUM 8.1 mg/dL (8.4-10.2); CREATININE, SERUM 3.77 mg/dL (0.57-1.11); POTASSIUM 5.4 mmol/L (3.5-5.1)
[2020-12-24 05:23] LABS: CREATINE KINASE MB 7.3 ng/mL (0-5.0)
[2020-12-24] MEDS ORDERED: FUROSEMIDE INJ 10 MG/ML 4 ML VIAL IV ONE (06:30)
[2020-12-24 07:52] LABS: LYMPHOCYTES % (MANUAL) 5 % (19-48); MONOCYTES % (MANUAL) 1 % (3.4-9.0); NEUTROPHILS % (MANUAL) 94 % (40-74)
[2020-12-24 07:53] LABS: ANISOCYTOSIS SLIGHT; PLATELET ESTIMATE SLIGHTLY DECREASED; PLATELET MORPHOLOGY COMMENT NORMAL; RBC MORPHOLOGY COMMENT NORMAL
[2020-12-24 07:54] LABS: POIKILOCYTOSIS SLIGHT
[2020-12-24] MEDS ORDERED: AZITHROMYCIN 250MG/NS 100 ML 100 ML IV SCH (08:00)
[2020-12-24] MEDS: HYDRALAZINE HCL 20 MG/ML VIAL IV PRN ×3 (08:23→18:10)
[2020-12-24] MEDS ORDERED: CEFTRIAXONE SOD 1 GM/NS 50 ML 50 ML IV SCH (09:00)
[2020-12-24 12:54] LABS: CREATINE KINASE MB 6.5 ng/mL (0-5.0)
[2020-12-24 18:10] VITALS: BP 204/85
[2020-12-24] MEDS ORDERED: FERROUS SULFAT325 MG PO (18:26)
[2020-12-24] MEDS ORDERED: SODIUM BICARBO650 MG PO (18:26)
[2020-12-24] MEDS ORDERED: NEPHRO-VITE TABL1 EA PO (18:26)
[2020-12-24] MEDS ORDERED: HYGROTON25 MG PO (18:26)
[2020-12-24] MEDS ORDERED: NIFEDIPINE ER30 M1 PO (18:26)
[2020-12-24] MEDS ORDERED: GLIMEPIRIDE2 MG PO (18:26)
[2020-12-24 20:00] VITALS: BP 188/55
[2020-12-24] MEDS: CARVEDILOL 12.5 MG TAB PO SCH (20:15)
[2020-12-24] MEDS: FUROSEMIDE INJ 10 MG/ML 4 ML VIAL IV SCH (20:16)
[2020-12-24] MEDS: NIFEDIPINE CR 30 MG TAB PO SCH (20:16)
[2020-12-24] MEDS: ATORVASTATIN 40 MG TAB PO SCH (21:00)
[2020-12-25] VITALS (8 sets, daily range): BP systolic 131–165; BP diastolic 68–80
[2020-12-25 05:07] LABS: BASOPHILS % 0.2 % (0.0-1.0); EOSINOPHILS # (AUTO) 0.1 (0.0-0.4); EOSINOPHILS % 2.4 % (0.0-6.0); HEMATOCRIT 26.3 % (34.2-44.1); HEMOGLOBIN 8.1 g/dL (12.0-16.0); LYMPHOCYTES # (AUTO) 0.9 (1.0-3.2); LYMPHOCYTES % 16.9 % (18.0-39.1); MEAN CORPUSCULAR HGB CONC 30.8 g/dL (31-35); MEAN CORPUSCULAR VOLUME 87.7 fL (81-99); MONOCYTES # (AUTO) 0.4 (0.2-0.8); MONOCYTES % 8.6 % (4.4-11.3); NEUTROPHILS # (AUTO) 3.6 (2.1-6.9); NEUTROPHILS % 71.5 % (38.7-80.0); PLATELET COUNT 124 x10e3/uL (140-360); RED CELL DISTRIBUTION WIDTH 16.8 % (11.7-14.4)
[2020-12-25 05:35] LABS: ALBUMIN/GLOBULIN RATIO 1.1 (0.8-2.0); ANION GAP 18.9 mmol/L (8-16); CALCIUM 7.7 mg/dL (8.4-10.2); CREATININE, SERUM 3.88 mg/dL (0.57-1.11); POTASSIUM 4.9 mmol/L (3.5-5.1)
[2020-12-25] MEDS: FUROSEMIDE INJ 10 MG/ML 4 ML VIAL IV SCH (08:10)
[2020-12-25] MEDS: CARVEDILOL 12.5 MG TAB PO SCH ×2 (08:12→18:46)
[2020-12-25] MEDS: NIFEDIPINE CR 30 MG TAB PO SCH ×2 (08:13→18:46)
[2020-12-25 16:46] LABS: CHOL/HDL RATIO 3.6 (3.0-3.6)
[2020-12-25] MEDS ORDERED: APIXABAN 5 MG TABLET PO SCH (17:00)
[2020-12-25] MEDS: APIXAB 2.5 MG TABLET PO SCH (18:46)
[2020-12-25] MEDS: BUMETANIDE 1 MG TAB PO SCH (18:46)
[2020-12-25] MEDS: ATORVASTATIN 40 MG TAB PO SCH (21:35)
[2020-12-26 01:07] VITALS: BP 160/69
[2020-12-26 05:35] VITALS: BP 146/62
[2020-12-26] MEDS ORDERED: EPOETIN ALFA-EPBX 10,000 UNIT/ML VIAL SC ONE (07:55)
[2020-12-26 08:00] VITALS: BP 149/51
[2020-12-26 08:51] LABS: FERRITIN 87.58 ng/mL (4.63-204.00)
[2020-12-26] MEDS ORDERED: SODIUM BICARBONATE 650 MG TAB PO SCH ×2 (09:00→17:00)
[2020-12-26] MEDS: BUMETANIDE 1 MG TAB PO SCH ×2 (10:00→17:19)
[2020-12-26] MEDS: APIXAB 2.5 MG TABLET PO SCH ×2 (10:00→17:20)
[2020-12-26] MEDS: NIFEDIPINE CR 30 MG TAB PO SCH ×2 (10:00→17:20)
[2020-12-26] MEDS: CARVEDILOL 12.5 MG TAB PO SCH ×2 (10:00→17:19)
[2020-12-26 10:54] LABS: ALBUMIN 3.3 g/dL (3.5-5.0); ALBUMIN/GLOBULIN RATIO 1.1 (0.8-2.0); ANION GAP 19.4 mmol/L (8-16); CALCIUM 7.8 mg/dL (8.4-10.2); CREATININE, SERUM 3.94 mg/dL (0.57-1.11); POTASSIUM 5.4 mmol/L (3.5-5.1)
[2020-12-26 11:37] VITALS: BP 169/68
[2020-12-26 11:55] VITALS: BP 169/68
[2020-12-26] MEDS ORDERED: SOD POLYSTYRENE SULFONATE SUSP 15 GM/60 ML BTL PO ONE (15:30)
[2020-12-26 15:53] VITALS: BP 134/91
== END 2020-12-26 18:10 | disposition home or self-care (01) | DRG 291 ==
LOC: ER 16:36 → ERHOLD 20:45 → IMCU 12-24 17:44 → MED/SURG 12-26 07:40
PROVIDERS: ADMIT Family Medicine; ATTEND Family Medicine
DX: I13.2 Hypertensive heart and chronic kidney disease with heart failure and with stage 5 chronic kidney disease, or end stage renal disease (principal); I50.43 Acute on chronic combined systolic (congestive) and diastolic (congestive) heart failure; J15.9 Unspecified bacterial pneumonia; N17.9 Acute kidney failure, unspecified; N18.5 Chronic kidney disease, stage 5; J44.0 Chronic obstructive pulmonary disease with (acute) lower respiratory infection; E87.2 Acidosis; E11.21 Type 2 diabetes mellitus with diabetic nephropathy; E11.22 Type 2 diabetes mellitus with diabetic chronic kidney disease; E78.5 Hyperlipidemia, unspecified; I16.0 Hypertensive urgency; Z20.822 Contact with and (suspected) exposure to COVID-19; I48.0 Paroxysmal atrial fibrillation; Z79.01 Long term (current) use of anticoagulants
CPT/HCPCS: 36415; 36600; 71045; 71250; 80053; 80061; 82550; 82553; 82728; 82805; 82948; 83540; 83880; 84466; 84484; 85025; 93005; 93306; 94660; 99285; J0360; J0696; J1940; J2930; U0002

== ENCOUNTER 2021-01-13 19:02 | Inpatient (IN) | payer MEDICARE, BC ==
[~2021-01-13] VITALS: Ht 157.5 cm; Wt 72.6 kg
[~2021-01-13 19:02] MED LIST changes: +FERROUS SULFAT325 MG PO; +GLIMEPIRIDE2 MG PO; +HYGROTON25 MG PO; +NEPHRO-VITE TABL1 EA PO
[2021-01-13] MEDS ORDERED: DEXAMETHASONE SOD PHOS 10 MG/1 ML VIAL IV STA (19:18)
[2021-01-13 19:44] LABS: BASOPHILS % 0.3 % (0.0-1.0); EOSINOPHILS # (AUTO) 0.2 (0.0-0.4); EOSINOPHILS % 2.7 % (0.0-6.0); HEMATOCRIT 28.4 % (34.2-44.1); HEMOGLOBIN 8.5 g/dL (12.0-16.0); LYMPHOCYTES # (AUTO) 0.5 (1.0-3.2); LYMPHOCYTES % 7.8 % (18.0-39.1); MEAN CORPUSCULAR HEMOGLOBIN 25.6 pg (28-32); MEAN CORPUSCULAR HGB CONC 29.9 g/dL (31-35); MEAN CORPUSCULAR VOLUME 85.5 fL (81-99); MONOCYTES # (AUTO) 0.3 (0.2-0.8); MONOCYTES % 5.3 % (4.4-11.3); NEUTROPHILS # (AUTO) 4.9 (2.1-6.9); NEUTROPHILS % 83.7 % (38.7-80.0); PLATELET COUNT 148 x10e3/uL (140-360); RED BLOOD COUNT 3.32 x10e6/uL (3.6-5.1); RED CELL DISTRIBUTION WIDTH 17.2 % (11.7-14.4)
[2021-01-13 20:04] LABS: ALBUMIN 3.4 g/dL (3.5-5.0); ALBUMIN/GLOBULIN RATIO 1.2 (0.8-2.0); ANION GAP 15.1 mmol/L (8-16); CALCIUM 8.3 mg/dL (8.4-10.2); CREATININE, SERUM 3.48 mg/dL (0.57-1.11); POTASSIUM 5.1 mmol/L (3.5-5.1)
[2021-01-13 20:14] LABS: B-TYPE NATRIURETIC PEPTIDE2 911.4 pg/mL (0-100)
[2021-01-13] MEDS: PIPERACILLIN/TAZOBAC 3.375 GM in SODIUM CHLORIDE 0.9% 50ML 50 ML IV SCH (20:16)
[2021-01-13] MEDS ORDERED: FUROSEMIDE INJ 10 MG/ML 2 ML VIAL IV ONE (22:30)
[2021-01-13] MEDS ORDERED: LASIX20 MG PO (22:53)
[2021-01-13 23:00] VITALS: BP 166/82
[2021-01-13] MEDS: HYDRALAZINE HCL 25 MG TAB PO SCH (23:43)
[2021-01-13 23:51] VITALS: BP 166/82
[2021-01-14] VITALS (7 sets, daily range): BP systolic 145–199; BP diastolic 81–109
[2021-01-14] MEDS ORDERED: PIPERACILLIN/TAZOBAC 3.375 GM VIAL ONE ×4 (01:40→20:06)
[2021-01-14] MEDS ORDERED: SODIUM CHLORIDE 0.9% 250ML 250 ML ONE (01:41)
[2021-01-14] MEDS ORDERED: SODIUM CHLORIDE 0.9% 50ML 50 ML ONE ×4 (01:41→20:07)
[2021-01-14] MEDS: PIPERACILLIN/TAZOBAC 3.375 GM in SODIUM CHLORIDE 0.9% 50ML 50 ML IV SCH ×4 (01:47→20:00)
[2021-01-14] MEDS: HYDRALAZINE HCL 25 MG TAB PO SCH ×3 (05:37→21:08)
[2021-01-14 06:22] LABS: HEMATOCRIT 26.7 % (34.2-44.1); HEMOGLOBIN 8.1 g/dL (12.0-16.0); LYMPHOCYTES # (AUTO) 0.2 (1.0-3.2); LYMPHOCYTES % 5.5 % (18.0-39.1); MEAN CORPUSCULAR HGB CONC 30.3 g/dL (31-35); MEAN CORPUSCULAR VOLUME 85.6 fL (81-99); MONOCYTES # (AUTO) 0.1 (0.2-0.8); MONOCYTES % 1.6 % (4.4-11.3); NEUTROPHILS # (AUTO) 2.9 (2.1-6.9); NEUTROPHILS % 92.6 % (38.7-80.0); PLATELET COUNT 128 x10e3/uL (140-360); RED BLOOD COUNT 3.12 x10e6/uL (3.6-5.1); RED CELL DISTRIBUTION WIDTH 17.3 % (11.7-14.4)
[2021-01-14 06:32] LABS: ALBUMIN 2.9 g/dL (3.5-5.0); ALBUMIN/GLOBULIN RATIO 1.1 (0.8-2.0); ANION GAP 13.3 mmol/L (8-16); CALCIUM 7.9 mg/dL (8.4-10.2); CREATININE, SERUM 3.4 mg/dL (0.57-1.11); POTASSIUM 5.3 mmol/L (3.5-5.1)
[2021-01-14 08:13] LABS: LYMPHOCYTES % (MANUAL) 5 % (19-48); MONOCYTES % (MANUAL) 1 % (3.4-9.0); NEUTROPHILS % (MANUAL) 94 % (40-74); PLATELET ESTIMATE SLIGHTLY DECREASED
[2021-01-14 08:14] LABS: ANISOCYTOSIS SLIGHT; OVALOCYTES FEW; PLATELET MORPHOLOGY COMMENT NORMAL; RBC MORPHOLOGY COMMENT NORMAL
[2021-01-14] MEDS ORDERED: POTASSIUM CHLORIDE 10MEQ EA PO SCH (09:00)
[2021-01-14] MEDS ORDERED: BUMETANIDE 1 MG TAB PO SCH (09:00)
[2021-01-14] MEDS ORDERED: FUROSEMIDE 20 MG TAB PO SCH (09:00)
[2021-01-14] MEDS: GLIMEPIRIDE 2 MG TAB PO SCH (09:48)
[2021-01-14] MEDS: CARVEDILOL 12.5 MG TAB PO SCH ×2 (09:49→17:18)
[2021-01-14] MEDS: FERROUS SULFATE 325 MG TAB PO SCH (09:50)
[2021-01-14] MEDS: NIFEDIPINE CR 30 MG TAB PO SCH ×2 (09:50→17:18)
[2021-01-14] MEDS: SODIUM BICARBONATE 650 MG TAB PO SCH ×2 (09:50→17:18)
[2021-01-14] MEDS: ASPIRIN 81 MG ENTERIC COATED PO SCH (11:17)
[2021-01-14] MEDS ORDERED: FUROSEMIDE INJ 10 MG/ML 4 ML VIAL IV ONE (11:30)
[2021-01-14] MEDS ORDERED: SOD POLYSTYRENE SULFONATE SUSP 15 GM/60 ML BTL PO ONE (15:15)
[2021-01-14] MEDS: FUROSEMIDE INJ 10 MG/ML 4 ML VIAL IV SCH (21:08)
[2021-01-15] VITALS (8 sets, daily range): BP systolic 114–173; BP diastolic 57–79
[2021-01-15] MEDS ORDERED: PIPERACILLIN/TAZOBAC 3.375 GM VIAL ONE (00:03)
[2021-01-15] MEDS ORDERED: SODIUM CHLORIDE 0.9% 50ML 50 ML ONE (00:03)
[2021-01-15] MEDS: PIPERACILLIN/TAZOBAC 3.375 GM in SODIUM CHLORIDE 0.9% 50ML 50 ML IV SCH (01:42)
[2021-01-15] MEDS: HYDRALAZINE HCL 25 MG TAB PO SCH ×3 (06:01→21:12)
[2021-01-15 06:39] LABS: BASOPHILS % 0.4 % (0.0-1.0); EOSINOPHILS # (AUTO) 0.2 (0.0-0.4); EOSINOPHILS % 3.8 % (0.0-6.0); HEMATOCRIT 24.6 % (34.2-44.1); HEMOGLOBIN 7.5 g/dL (12.0-16.0); LYMPHOCYTES # (AUTO) 0.8 (1.0-3.2); LYMPHOCYTES % 16.8 % (18.0-39.1); MEAN CORPUSCULAR HEMOGLOBIN 25.7 pg (28-32); MEAN CORPUSCULAR HGB CONC 30.5 g/dL (31-35); MEAN CORPUSCULAR VOLUME 84.2 fL (81-99); MONOCYTES # (AUTO) 0.3 (0.2-0.8); MONOCYTES % 7.4 % (4.4-11.3); NEUTROPHILS # (AUTO) 3.2 (2.1-6.9); NEUTROPHILS % 71.4 % (38.7-80.0); PLATELET COUNT 132 x10e3/uL (140-360); RED BLOOD COUNT 2.92 x10e6/uL (3.6-5.1); RED CELL DISTRIBUTION WIDTH 17.2 % (11.7-14.4)
[2021-01-15 06:57] LABS: ALBUMIN 2.7 g/dL (3.5-5.0); ANION GAP 14.4 mmol/L (8-16); CALCIUM 7.5 mg/dL (8.4-10.2); CHOL/HDL RATIO 3.2 (3.0-3.6); CREATININE, SERUM 3.88 mg/dL (0.57-1.11); POTASSIUM 4.4 mmol/L (3.5-5.1)
[2021-01-15 07:17] LABS: THYROID STIMULATING HORMONE 1.27 uIU/mL (0.350-4.940)
[2021-01-15] MEDS: GLIMEPIRIDE 2 MG TAB PO SCH (10:05)
[2021-01-15] MEDS: ASPIRIN 81 MG ENTERIC COATED PO SCH (10:05)
[2021-01-15] MEDS: FUROSEMIDE INJ 10 MG/ML 4 ML VIAL IV SCH ×2 (10:06→21:12)
[2021-01-15] MEDS: SODIUM BICARBONATE 650 MG TAB PO SCH ×2 (10:06→17:59)
[2021-01-15] MEDS: NIFEDIPINE CR 30 MG TAB PO SCH ×2 (10:06→17:59)
[2021-01-15] MEDS: FERROUS SULFATE 325 MG TAB PO SCH (10:06)
[2021-01-15] MEDS: CARVEDILOL 12.5 MG TAB PO SCH ×2 (10:06→17:59)
[2021-01-16] VITALS (8 sets, daily range): BP systolic 142–185; BP diastolic 56–88
[2021-01-16] MEDS: HYDRALAZINE HCL 25 MG TAB PO SCH ×3 (05:44→22:00)
[2021-01-16 06:18] LABS: INR 1.11
[2021-01-16 06:19] LABS: PARTIAL THROMBOPLASTIN TIME 41.1 seconds (23.8-35.5)
[2021-01-16 06:29] LABS: ANION GAP 13.4 mmol/L (8-16); CALCIUM 7.6 mg/dL (8.4-10.2); CREATININE, SERUM 3.85 mg/dL (0.57-1.11); POTASSIUM 4.4 mmol/L (3.5-5.1)
[2021-01-16] MEDS: ASPIRIN 81 MG ENTERIC COATED PO SCH (09:02)
[2021-01-16] MEDS: GLIMEPIRIDE 2 MG TAB PO SCH (09:02)
[2021-01-16] MEDS: FUROSEMIDE INJ 10 MG/ML 4 ML VIAL IV SCH ×2 (09:02→21:00)
[2021-01-16] MEDS: FERROUS SULFATE 325 MG TAB PO SCH (09:03)
[2021-01-16] MEDS: CARVEDILOL 12.5 MG TAB PO SCH ×2 (09:03→17:05)
[2021-01-16] MEDS: SODIUM BICARBONATE 650 MG TAB PO SCH ×2 (09:03→17:06)
[2021-01-16] MEDS: NIFEDIPINE CR 30 MG TAB PO SCH ×2 (09:03→17:06)
[2021-01-17] VITALS (7 sets, daily range): BP systolic 141–186; BP diastolic 69–80
[2021-01-17] MEDS: HYDRALAZINE HCL 25 MG TAB PO SCH ×4 (06:00→22:00)
[2021-01-17 07:07] LABS: BASOPHILS % 0.3 % (0.0-1.0); EOSINOPHILS # (AUTO) 0.1 (0.0-0.4); EOSINOPHILS % 3.3 % (0.0-6.0); HEMATOCRIT 26.5 % (34.2-44.1); HEMOGLOBIN 8.1 g/dL (12.0-16.0); LYMPHOCYTES # (AUTO) 0.8 (1.0-3.2); LYMPHOCYTES % 19.2 % (18.0-39.1); MEAN CORPUSCULAR HEMOGLOBIN 25.5 pg (28-32); MEAN CORPUSCULAR HGB CONC 30.6 g/dL (31-35); MEAN CORPUSCULAR VOLUME 83.3 fL (81-99); MONOCYTES # (AUTO) 0.3 (0.2-0.8); MONOCYTES % 8.2 % (4.4-11.3); NEUTROPHILS # (AUTO) 2.7 (2.1-6.9); PLATELET COUNT 128 x10e3/uL (140-360); RED BLOOD COUNT 3.18 x10e6/uL (3.6-5.1); RED CELL DISTRIBUTION WIDTH 16.6 % (11.7-14.4)
[2021-01-17 07:41] LABS: ANION GAP 16.1 mmol/L (8-16); CALCIUM 7.7 mg/dL (8.4-10.2); CREATININE, SERUM 3.9 mg/dL (0.57-1.11); POTASSIUM 4.1 mmol/L (3.5-5.1)
[2021-01-17] MEDS: GLIMEPIRIDE 2 MG TAB PO SCH ×2 (08:00→11:52)
[2021-01-17] MEDS: CARVEDILOL 12.5 MG TAB PO SCH ×3 (09:00→17:00)
[2021-01-17] MEDS: NIFEDIPINE CR 30 MG TAB PO SCH ×3 (09:00→17:00)
[2021-01-17] MEDS: ASPIRIN 81 MG ENTERIC COATED PO SCH ×2 (09:00→11:52)
[2021-01-17] MEDS: SODIUM BICARBONATE 650 MG TAB PO SCH ×3 (09:00→17:00)
[2021-01-17] MEDS: FERROUS SULFATE 325 MG TAB PO SCH ×2 (09:00→11:52)
[2021-01-17] MEDS ORDERED: HEPARIN SOD (PORCINE) 1000 UNIT/ML SDV ONE (09:46)
[2021-01-17] MEDS ORDERED: MIDAZOLAM HCL 2 MG/2 ML VIAL ONE (09:46)
[2021-01-17] MEDS ORDERED: FENTANYL CITRATE/PF 100MCG/2 ML INJ ONE (09:47)
[2021-01-17] MEDS ORDERED: CEFAZOLIN SOD 1 GM/NS 50ML 50 ML IV ONE (09:47)
[2021-01-17] MEDS ORDERED: LIDOCAINE HCL 1% LOCAL INJ 20 ML VIAL ONE (10:03)
[2021-01-17] MEDS ORDERED: SODIUM CHLORIDE 0.9% 250ML 250 ML ONE (10:03)
[2021-01-17] MEDS: AMIODARONE HCL 200 MG TAB PO SCH ×2 (11:49→17:00)
[2021-01-17] MEDS: FUROSEMIDE INJ 10 MG/ML 4 ML VIAL IV SCH ×2 (11:49→21:00)
[2021-01-17] MEDS ORDERED: MORPHINE SULFATE INJ 2 MG/ML SYR IV PRN (15:45)
[2021-01-17] MEDS ORDERED: ACETAMINOPHEN 325 MG TAB PO PRN (15:45)
[2021-01-17] MEDS ORDERED: SODIUM CHLORIDE 0.9% 1000ML 2,000 ML IV PRN (18:45)
[2021-01-17] MEDS ORDERED: HEPARIN SOD (PORCINE) 1000 UNIT/ML SDV IV PRN (18:45)
[2021-01-17] MEDS ORDERED: MANNITOL 25% 12.5GM/50 ML VIAL IV PRN (18:45)
[2021-01-17] MEDS ORDERED: SODIUM CHLORIDE 0.9% 250ML 500 ML IV PRN (18:45)
[2021-01-18] VITALS (9 sets, daily range): BP systolic 125–198; BP diastolic 57–77
[2021-01-18] MEDS: HYDRALAZINE HCL 25 MG TAB PO SCH ×3 (05:21→21:36)
[2021-01-18 06:49] LABS: BASOPHILS % 0.3 % (0.0-1.0); EOSINOPHILS # (AUTO) 0.1 (0.0-0.4); EOSINOPHILS % 3.7 % (0.0-6.0); HEMATOCRIT 25.5 % (34.2-44.1); HEMOGLOBIN 7.9 g/dL (12.0-16.0); LYMPHOCYTES # (AUTO) 0.6 (1.0-3.2); LYMPHOCYTES % 15.3 % (18.0-39.1); MEAN CORPUSCULAR HEMOGLOBIN 25.9 pg (28-32); MEAN CORPUSCULAR VOLUME 83.6 fL (81-99); MONOCYTES # (AUTO) 0.4 (0.2-0.8); MONOCYTES % 9.5 % (4.4-11.3); NEUTROPHILS # (AUTO) 2.7 (2.1-6.9); NEUTROPHILS % 70.9 % (38.7-80.0); PLATELET COUNT 106 x10e3/uL (140-360); RED BLOOD COUNT 3.05 x10e6/uL (3.6-5.1); RED CELL DISTRIBUTION WIDTH 16.6 % (11.7-14.4)
[2021-01-18 07:03] LABS: ANION GAP 13.1 mmol/L (8-16); CALCIUM 7.9 mg/dL (8.4-10.2); CREATININE, SERUM 2.88 mg/dL (0.57-1.11); POTASSIUM 4.1 mmol/L (3.5-5.1)
[2021-01-18] MEDS: GLIMEPIRIDE 2 MG TAB PO SCH (08:31)
[2021-01-18] MEDS: FUROSEMIDE INJ 10 MG/ML 4 ML VIAL IV SCH ×2 (08:31→21:00)
[2021-01-18] MEDS: AMIODARONE HCL 200 MG TAB PO SCH ×2 (08:31→16:15)
[2021-01-18] MEDS: ASPIRIN 81 MG ENTERIC COATED PO SCH (08:31)
[2021-01-18] MEDS: NIFEDIPINE CR 30 MG TAB PO SCH ×2 (08:32→16:16)
[2021-01-18] MEDS: CARVEDILOL 12.5 MG TAB PO SCH ×2 (08:32→16:15)
[2021-01-18] MEDS: SODIUM BICARBONATE 650 MG TAB PO SCH ×2 (08:32→16:16)
[2021-01-18] MEDS: FERROUS SULFATE 325 MG TAB PO SCH (08:32)
[2021-01-18] MEDS ORDERED: EPOETIN ALFA-EPBX 10,000 UNIT/ML VIAL SC SCH (15:00)
[2021-01-19] VITALS (7 sets, daily range): BP systolic 102–159; BP diastolic 53–80
[2021-01-19] MEDS: HYDRALAZINE HCL 25 MG TAB PO SCH ×3 (06:07→21:13)
[2021-01-19] MEDS: CARVEDILOL 12.5 MG TAB PO SCH ×2 (09:15→16:20)
[2021-01-19] MEDS: FUROSEMIDE INJ 10 MG/ML 4 ML VIAL IV SCH ×2 (09:15→21:12)
[2021-01-19] MEDS: GLIMEPIRIDE 2 MG TAB PO SCH (09:15)
[2021-01-19] MEDS: ASPIRIN 81 MG ENTERIC COATED PO SCH (09:15)
[2021-01-19] MEDS: AMIODARONE HCL 200 MG TAB PO SCH ×2 (09:15→16:20)
[2021-01-19] MEDS: NIFEDIPINE CR 30 MG TAB PO SCH ×2 (09:15→16:21)
[2021-01-19] MEDS: SODIUM BICARBONATE 650 MG TAB PO SCH ×2 (09:15→16:21)
[2021-01-19] MEDS: APIXAB 2.5 MG TABLET PO SCH (16:21)
[2021-01-20] VITALS (8 sets, daily range): BP systolic 140–184; BP diastolic 62–73
[2021-01-20 06:15] LABS: BASOPHILS % 0.5 % (0.0-1.0); EOSINOPHILS # (AUTO) 0.2 (0.0-0.4); EOSINOPHILS % 4.3 % (0.0-6.0); HEMATOCRIT 27.7 % (34.2-44.1); HEMOGLOBIN 8.7 g/dL (12.0-16.0); LYMPHOCYTES # (AUTO) 0.8 (1.0-3.2); MEAN CORPUSCULAR HEMOGLOBIN 26.4 pg (28-32); MEAN CORPUSCULAR HGB CONC 31.4 g/dL (31-35); MEAN CORPUSCULAR VOLUME 83.9 fL (81-99); MONOCYTES # (AUTO) 0.5 (0.2-0.8); MONOCYTES % 12.5 % (4.4-11.3); NEUTROPHILS # (AUTO) 2.3 (2.1-6.9); NEUTROPHILS % 61.4 % (38.7-80.0); PLATELET COUNT 98 x10e3/uL (140-360); RED CELL DISTRIBUTION WIDTH 16.4 % (11.7-14.4)
[2021-01-20] MEDS: HYDRALAZINE HCL 25 MG TAB PO SCH ×3 (06:15→21:15)
[2021-01-20 06:40] LABS: CALCIUM 7.9 mg/dL (8.4-10.2); CREATININE, SERUM 3.63 mg/dL (0.57-1.11)
[2021-01-20 08:13] LABS: PLATELET ESTIMATE SLIGHTLY DECREASED; PLATELET MORPHOLOGY COMMENT FEW LARGE; RBC MORPHOLOGY COMMENT NORMAL
[2021-01-20] MEDS: CARVEDILOL 12.5 MG TAB PO SCH ×2 (09:00→17:55)
[2021-01-20] MEDS: NIFEDIPINE CR 30 MG TAB PO SCH ×2 (09:00→17:55)
[2021-01-20] MEDS: FUROSEMIDE INJ 10 MG/ML 4 ML VIAL IV SCH ×2 (09:00→21:15)
[2021-01-20] MEDS: APIXAB 2.5 MG TABLET PO SCH ×2 (09:55→17:56)
[2021-01-20] MEDS: GLIMEPIRIDE 2 MG TAB PO SCH (09:56)
[2021-01-20] MEDS: SODIUM BICARBONATE 650 MG TAB PO SCH ×2 (09:57→17:55)
[2021-01-20] MEDS: AMIODARONE HCL 200 MG TAB PO SCH (17:53)
[2021-01-21] VITALS: BP 155/67
[2021-01-21 04:00] VITALS: BP 128/63
[2021-01-21] MEDS: HYDRALAZINE HCL 25 MG TAB PO SCH ×2 (05:56→13:26)
[2021-01-21 07:47] VITALS: BP 160/69
[2021-01-21 08:23] VITALS: BP 160/69
[2021-01-21] MEDS: SODIUM BICARBONATE 650 MG TAB PO SCH ×2 (09:24→16:09)
[2021-01-21] MEDS: APIXAB 2.5 MG TABLET PO SCH ×2 (09:24→16:09)
[2021-01-21] MEDS: NIFEDIPINE CR 30 MG TAB PO SCH ×2 (09:24→16:09)
[2021-01-21] MEDS: CARVEDILOL 12.5 MG TAB PO SCH ×2 (09:25→16:09)
[2021-01-21] MEDS: GLIMEPIRIDE 2 MG TAB PO SCH (09:25)
[2021-01-21] MEDS: AMIODARONE HCL 200 MG TAB PO SCH (09:25)
[2021-01-21] MEDS: FUROSEMIDE INJ 10 MG/ML 4 ML VIAL IV SCH (09:27)
[2021-01-21 11:16] VITALS: BP 137/62
[2021-01-21 15:46] VITALS: BP 132/67
[2021-01-21] MEDS ORDERED: ELIQUIS2.5 MG PO (19:50)
== END 2021-01-21 20:33 | disposition home or self-care (01) | DRG 291 ==
LOC: ER 19:20 → ERHOLD 22:19 → MED/SURG3 22:25
PROVIDERS: ADMIT Family Medicine; ATTEND Family Medicine
PROC: 0JH63XZ Insertion of Tunneled Vascular Access Device into Chest Subcutaneous Tissue and Fascia, Percutaneous Approach (ICD-10-PCS; principal; 2021-01-17)
PROC: 02HV33Z Insertion of Infusion Device into Superior Vena Cava, Percutaneous Approach (ICD-10-PCS; 2021-01-17)
PROC: 5A1D70Z Performance of Urinary Filtration, Intermittent, Less than 6 Hours Per Day (ICD-10-PCS; 2021-01-17)
DX: I13.2 Hypertensive heart and chronic kidney disease with heart failure and with stage 5 chronic kidney disease, or end stage renal disease (principal); I50.43 Acute on chronic combined systolic (congestive) and diastolic (congestive) heart failure; N18.6 End stage renal disease; E87.2 Acidosis; E11.22 Type 2 diabetes mellitus with diabetic chronic kidney disease; D63.1 Anemia in chronic kidney disease; Z99.2 Dependence on renal dialysis; Z79.899 Other long term (current) drug therapy; I48.0 Paroxysmal atrial fibrillation; Z79.01 Long term (current) use of anticoagulants; E11.51 Type 2 diabetes mellitus with diabetic peripheral angiopathy without gangrene; E78.5 Hyperlipidemia, unspecified; E87.5 Hyperkalemia; I35.0 Nonrheumatic aortic (valve) stenosis; E87.8 Other disorders of electrolyte and fluid balance, not elsewhere classified; M19.90 Unspecified osteoarthritis, unspecified site; Z20.822 Contact with and (suspected) exposure to COVID-19
CPT/HCPCS: 36415; 36558; 71045; 71046; 74470; 76700; 76937; 77001; 80048; 80053; 80061; 82270; 82550; 82553; 82565; 82948; 83605; 83880; 84443; 84484; 85025; 85610; 85730; 86706; 87040; 87340; 93005; 93306; 97139; 99152; 99153; 99251; 99284; C1769; C1892; J0690; J1100; J1644; J1940; J2001; J2150; J2250; J2543; J3010; J7030; J7050; U0002

== ENCOUNTER → 2021-03-27 | Outpatient (CLI) | payer MEDICARE, BC ==
[~2021-03-27] MED LIST changes: +LASIX20 MG PO
== END ==
LOC: MAMMO 10:25
PROVIDERS: ATTEND Family Medicine
DX: Z12.31 Encounter for screening mammogram for malignant neoplasm of breast (principal)
CPT/HCPCS: 77067

== ENCOUNTER 2021-11-16 11:33 | Emergency (ER) | payer MEDICARE, BC ==
[~2021-11-16] VITALS: Ht 157.5 cm; Wt 72.6 kg
[2021-11-16 12:19] LABS: BASOPHILS % 0.2 % (0.0-1.0); EOSINOPHILS # (AUTO) 0.1 (0.0-0.4); EOSINOPHILS % 2.2 % (0.0-6.0); HEMATOCRIT 38.8 % (34.2-44.1); HEMOGLOBIN 12.1 g/dL (12.0-16.0); LYMPHOCYTES % 15.5 % (18.0-39.1); MEAN CORPUSCULAR HEMOGLOBIN 28.1 pg (28-32); MEAN CORPUSCULAR HGB CONC 31.2 g/dL (31-35); MONOCYTES # (AUTO) 0.4 (0.2-0.8); NEUTROPHILS # (AUTO) 4.9 (2.1-6.9); NEUTROPHILS % 75.6 % (38.7-80.0); PLATELET COUNT 138 x10e3/uL (140-360); RED BLOOD COUNT 4.31 x10e6/uL (3.6-5.1); RED CELL DISTRIBUTION WIDTH 14.7 % (11.7-14.4)
[2021-11-16 12:34] LABS: ALBUMIN/GLOBULIN RATIO 1.2 (0.8-2.0); ANION GAP 19.5 mmol/L (8-16); CALCIUM 9.2 mg/dL (8.4-10.2); CREATININE, SERUM 5.97 mg/dL (0.57-1.11); POTASSIUM 4.5 mmol/L (3.5-5.1)
[2021-11-16 14:15] VITALS: BP 165/82
== END 2021-11-16 14:10 | disposition home or self-care (01) ==
LOC: ER 11:45
DX: R06.02 Shortness of breath (principal); J81.1 Chronic pulmonary edema; I12.0 Hypertensive chronic kidney disease with stage 5 chronic kidney disease or end stage renal disease; E11.22 Type 2 diabetes mellitus with diabetic chronic kidney disease; E11.65 Type 2 diabetes mellitus with hyperglycemia; N18.6 End stage renal disease; Z99.2 Dependence on renal dialysis; I50.9 Heart failure, unspecified; J44.9 Chronic obstructive pulmonary disease, unspecified; R94.31 Abnormal electrocardiogram [ECG] [EKG]
CPT/HCPCS: 36415; 71045; 80053; 83735; 85025; 93005; 99284

== ENCOUNTER → 2022-04-23 | Outpatient (CLI) | payer MEDICARE, BC | LOC: MAMMO 14:07 | PROVIDERS: ATTEND Family Medicine | DX: Z12.31 Encounter for screening mammogram for malignant neoplasm of breast (principal) | CPT/HCPCS: 77067 ==

== ENCOUNTER 2023-01-30 23:00 | Inpatient (IN) | payer MEDICARE, BC ==
[~2023-01-30] VITALS: Ht 157.5 cm; Wt 72.6 kg
[2023-01-30] MEDS ORDERED: OXYMETAZOLINE HCL 0.05% NAS 1 SPRAY BTL ONE (23:15)
[2023-01-30] MEDS ORDERED: HYDRALAZINE HCL 20 MG/ML VIAL IV STA (23:28)
[2023-01-30] MEDS ORDERED: ELIQUIS2.5 MG PO (23:34)
[2023-01-30] MEDS ORDERED: LABETALOL HCL200 MG PO (23:34)
[2023-01-30] MEDS ORDERED: GLIMEPIRIDE2 MG PO (23:34)
[2023-01-30] MEDS ORDERED: PANTOPRAZOLE SO40 MG PO (23:34)
[2023-01-30] MEDS ORDERED: AMIODARONE HCL200 MG PO (23:34)
[2023-01-30] MEDS ORDERED: BUMETANIDE1 MG PO (23:34)
[2023-01-30] MEDS ORDERED: NIFEDIPINE ER30 M1 PO (23:34)
[2023-01-30 23:45] LABS: BASOPHILS % 0.2 % (0.0-1.0); EOSINOPHILS # (AUTO) 0.2 (0.0-0.4); EOSINOPHILS % 2.8 % (0.0-6.0); HEMATOCRIT 42.5 % (34.2-44.1); HEMOGLOBIN 13.5 g/dL (12.0-16.0); LYMPHOCYTES # (AUTO) 1.2 (1.0-3.2); LYMPHOCYTES % 19.1 % (18.0-39.1); MEAN CORPUSCULAR HEMOGLOBIN 30.3 pg (28-32); MEAN CORPUSCULAR HGB CONC 31.8 g/dL (31-35); MEAN CORPUSCULAR VOLUME 95.5 fL (81-99); MONOCYTES # (AUTO) 0.4 (0.2-0.8); MONOCYTES % 7.2 % (4.4-11.3); NEUTROPHILS # (AUTO) 4.2 (2.1-6.9); NEUTROPHILS % 70.5 % (38.7-80.0); PLATELET COUNT 119 x10e3/uL (140-360); RED BLOOD COUNT 4.45 x10e6/uL (3.6-5.1); RED CELL DISTRIBUTION WIDTH 14.6 % (11.7-14.4)
[2023-01-30] MEDS ORDERED: NIFEDIPINE CR 30 MG TAB PO ONE (23:45)
[2023-01-30] MEDS ORDERED: LABETALOL HCL 200 MG TAB PO ONE (23:45)
[2023-01-30 23:49] LABS: INR 1.03
[2023-01-30 23:56] LABS: ANION GAP 21.1 mmol/L (8-16); CALCIUM 9.8 mg/dL (8.4-10.2); CREATININE, SERUM 5.89 mg/dL (0.57-1.11)
[2023-01-31] VITALS (14 sets, daily range): BP systolic 124–234; BP diastolic 58–114
[2023-01-31 00:09] LABS: POTASSIUM 6.1 mmol/L (3.5-5.1)
[2023-01-31] MEDS ORDERED: SODIUM BICARBONATE 8.4% INJ 50 ML SYR IV STA (00:09)
[2023-01-31] MEDS ORDERED: CALCIUM CHLORIDE 10% 1.36 MEQ/ML 10ML SYR IV STA (00:09)
[2023-01-31] MEDS ORDERED: DEXTROSE 50% SYRINGE 50 ML IV STA (00:09)
[2023-01-31] MEDS ORDERED: SOD POLYSTYRENE SULFONATE SUSP 15 GM/60 ML BTL PO ONE (00:15)
[2023-01-31] MEDS ORDERED: INSULIN REGULAR, HUMAN 100 UNIT/1 ML IV ONE (00:15)
[2023-01-31] MEDS ORDERED: DEXTROSE 50% SYRINGE 50 ML IV PRN (00:45)
[2023-01-31] MEDS ORDERED: SODIUM CHLORIDE FLUSH 10 ML SYR INJ PRN (00:45)
[2023-01-31] MEDS ORDERED: ONDANSETRON HCL INJ 2MG/ML 2ML 2 MG/ML VIAL IV PRN (00:45)
[2023-01-31] MEDS: HYDRALAZINE HCL 20 MG/ML VIAL IV PRN ×2 (01:25→11:44)
[2023-01-31] MEDS ORDERED: SODIUM CHLORIDE 0.9% 1000ML 2,000 ML ONE (04:01)
[2023-01-31] MEDS ORDERED: HYDRALAZINE HCL 25 MG TAB PO SCH (06:00)
[2023-01-31] MEDS: INSULIN REGULAR, HUMAN 100 UNIT/1 ML SQ SCH ×4 (07:30→20:46)
[2023-01-31] MEDS: ACETAMINOPHEN 325 MG TAB PO PRN ×3 (07:30→17:57)
[2023-01-31] MEDS ORDERED: FOLIC ACID/CYANOCOB/PYRIDOXINE TAB PO SCH (09:00)
[2023-01-31] MEDS: BUMETANIDE 1 MG TAB PO SCH ×2 (09:00→09:19)
[2023-01-31] MEDS ORDERED: FERROUS SULFATE 325 MG TAB PO SCH (09:00)
[2023-01-31] MEDS ORDERED: NIFEDIPINE CR 30 MG TAB PO SCH (09:00)
[2023-01-31] MEDS: PANTOPRAZOLE SOD 40 MG TABEC PO SCH (09:19)
[2023-01-31] MEDS: AMIODARONE HCL 200 MG TAB PO SCH (09:20)
[2023-01-31] MEDS: GLIMEPIRIDE 2 MG TAB PO SCH (09:42)
[2023-01-31] MEDS: LABETALOL HCL 200 MG TAB PO SCH ×2 (09:47→17:52)
[2023-01-31] MEDS: NIFEDIPINE CR 30 MG TAB PO SCH ×2 (10:23→17:55)
[2023-01-31] MEDS ORDERED: LORAZEPAM 1 MG TAB PO PRN (10:30)
[2023-02-01] VITALS (10 sets, daily range): BP systolic 121–197; BP diastolic 62–79
[2023-02-01] MEDS: ACETAMINOPHEN 325 MG TAB PO PRN ×3 (04:28→16:34)
[2023-02-01] MEDS: PANTOPRAZOLE SOD 40 MG TABEC PO SCH (08:54)
[2023-02-01] MEDS: GLIMEPIRIDE 2 MG TAB PO SCH (08:54)
[2023-02-01] MEDS: BUMETANIDE 1 MG TAB PO SCH (08:55)
[2023-02-01] MEDS: AMIODARONE HCL 200 MG TAB PO SCH (08:56)
[2023-02-01] MEDS: NIFEDIPINE CR 30 MG TAB PO SCH ×2 (08:57→16:09)
[2023-02-01] MEDS: LABETALOL HCL 200 MG TAB PO SCH ×2 (08:57→16:08)
[2023-02-01] MEDS: INSULIN REGULAR, HUMAN 100 UNIT/1 ML SQ SCH ×4 (09:03→20:46)
[2023-02-01] MEDS ORDERED: SODIUM CHLORIDE 0.9% 1000ML 2,000 ML IV PRN (10:00)
[2023-02-01] MEDS ORDERED: SODIUM CHLORIDE 0.9% 1000ML 2,000 ML ONE (10:15)
[2023-02-01] MEDS ORDERED: ONDANSETRON HCL 4 MG ORAL DISINTEGRATING TAB PO PRN (13:30)
[2023-02-01] MEDS: HYDRALAZINE HCL 25 MG TAB PO SCH (18:12)
[2023-02-01 18:25] LABS: BASOPHILS % 0.1 % (0.0-1.0); EOSINOPHILS # (AUTO) 0.1 (0.0-0.4); EOSINOPHILS % 1.8 % (0.0-6.0); HEMATOCRIT 40.7 % (34.2-44.1); HEMOGLOBIN 13.3 g/dL (12.0-16.0); LYMPHOCYTES # (AUTO) 0.6 (1.0-3.2); LYMPHOCYTES % 8.6 % (18.0-39.1); MEAN CORPUSCULAR HEMOGLOBIN 30.2 pg (28-32); MEAN CORPUSCULAR HGB CONC 32.7 g/dL (31-35); MEAN CORPUSCULAR VOLUME 92.3 fL (81-99); MONOCYTES # (AUTO) 0.7 (0.2-0.8); NEUTROPHILS # (AUTO) 5.9 (2.1-6.9); NEUTROPHILS % 79.2 % (38.7-80.0); PLATELET COUNT 117 x10e3/uL (140-360); RED BLOOD COUNT 4.41 x10e6/uL (3.6-5.1); RED CELL DISTRIBUTION WIDTH 14.6 % (11.7-14.4)
[2023-02-01 18:44] LABS: ALBUMIN 3.8 g/dL (3.5-5.0); ANION GAP 16.9 mmol/L (8-16); CALCIUM 9.5 mg/dL (8.4-10.2); CREATININE, SERUM 3.66 mg/dL (0.57-1.11); POTASSIUM 4.9 mmol/L (3.5-5.1)
[2023-02-02] VITALS (8 sets, daily range): BP systolic 150–199; BP diastolic 61–85
[2023-02-02 05:46] LABS: BASOPHILS % 0.3 % (0.0-1.0); EOSINOPHILS # (AUTO) 0.2 (0.0-0.4); HEMATOCRIT 41.4 % (34.2-44.1); HEMOGLOBIN 13.3 g/dL (12.0-16.0); LYMPHOCYTES # (AUTO) 0.8 (1.0-3.2); LYMPHOCYTES % 13.2 % (18.0-39.1); MEAN CORPUSCULAR HEMOGLOBIN 30.2 pg (28-32); MEAN CORPUSCULAR HGB CONC 32.1 g/dL (31-35); MEAN CORPUSCULAR VOLUME 94.1 fL (81-99); MONOCYTES # (AUTO) 0.6 (0.2-0.8); MONOCYTES % 10.3 % (4.4-11.3); NEUTROPHILS # (AUTO) 4.5 (2.1-6.9); NEUTROPHILS % 72.9 % (38.7-80.0); PLATELET COUNT 116 x10e3/uL (140-360); RED CELL DISTRIBUTION WIDTH 14.4 % (11.7-14.4)
[2023-02-02 06:15] LABS: ANION GAP 18.6 mmol/L (8-16); CALCIUM 9.4 mg/dL (8.4-10.2); CREATININE, SERUM 4.79 mg/dL (0.57-1.11); POTASSIUM 4.6 mmol/L (3.5-5.1)
[2023-02-02] MEDS: PANTOPRAZOLE SOD 40 MG TABEC PO SCH (07:57)
[2023-02-02] MEDS: GLIMEPIRIDE 2 MG TAB PO SCH (07:57)
[2023-02-02] MEDS: NIFEDIPINE CR 30 MG TAB PO SCH ×2 (07:58→16:45)
[2023-02-02] MEDS: HYDRALAZINE HCL 25 MG TAB PO SCH ×2 (07:58→16:44)
[2023-02-02] MEDS: LABETALOL HCL 200 MG TAB PO SCH ×2 (07:58→16:45)
[2023-02-02] MEDS: BUMETANIDE 1 MG TAB PO SCH (07:58)
[2023-02-02] MEDS: AMIODARONE HCL 200 MG TAB PO SCH (07:59)
[2023-02-02] MEDS: ACETAMINOPHEN 325 MG TAB PO PRN ×3 (07:59→23:34)
[2023-02-02] MEDS: INSULIN REGULAR, HUMAN 100 UNIT/1 ML SQ SCH ×4 (08:08→21:23)
[2023-02-03] VITALS: BP 129/67
[2023-02-03 04:00] VITALS: BP 159/64
[2023-02-03] MEDS: GLIMEPIRIDE 2 MG TAB PO SCH (07:30)
[2023-02-03] MEDS: INSULIN REGULAR, HUMAN 100 UNIT/1 ML SQ SCH ×3 (07:30→17:02)
[2023-02-03 08:30] VITALS: BP 173/65
[2023-02-03 08:31] VITALS: BP 173/65
[2023-02-03] MEDS: BUMETANIDE 1 MG TAB PO SCH (09:00)
[2023-02-03] MEDS: ACETAMINOPHEN 325 MG TAB PO PRN ×2 (09:03→13:01)
[2023-02-03 12:23] VITALS: BP 114/59
[2023-02-03] MEDS: PANTOPRAZOLE SOD 40 MG TABEC PO SCH (12:58)
[2023-02-03] MEDS: NIFEDIPINE CR 30 MG TAB PO SCH ×2 (12:58→17:00)
[2023-02-03] MEDS: HYDRALAZINE HCL 25 MG TAB PO SCH ×2 (12:58→17:00)
[2023-02-03] MEDS: AMIODARONE HCL 200 MG TAB PO SCH (12:58)
[2023-02-03] MEDS: LABETALOL HCL 200 MG TAB PO SCH ×2 (12:59→17:00)
[2023-02-03 16:03] VITALS: BP 145/56
== END 2023-02-03 18:35 | disposition home or self-care (01) | DRG 150 ==
LOC: ER 23:10 → ERHOLD 01-31 00:40 → ICU 01-31 01:51 → MED/SURG2 02-01 01:39
PROVIDERS: ADMIT Family Medicine; ATTEND Family Medicine
PROC: 2Y41X5Z Packing of Nasal Region using Packing Material (ICD-10-PCS; principal; 2023-01-31)
PROC: 5A1D70Z Performance of Urinary Filtration, Intermittent, Less than 6 Hours Per Day (ICD-10-PCS; 2023-01-31)
DX: R04.0 Epistaxis (principal); N18.6 End stage renal disease; I13.2 Hypertensive heart and chronic kidney disease with heart failure and with stage 5 chronic kidney disease, or end stage renal disease; E78.5 Hyperlipidemia, unspecified; E11.22 Type 2 diabetes mellitus with diabetic chronic kidney disease; J44.9 Chronic obstructive pulmonary disease, unspecified; I50.9 Heart failure, unspecified; E87.5 Hyperkalemia; I16.0 Hypertensive urgency; D63.1 Anemia in chronic kidney disease; I48.0 Paroxysmal atrial fibrillation; Z20.822 Contact with and (suspected) exposure to COVID-19; Z99.2 Dependence on renal dialysis; Z79.01 Long term (current) use of anticoagulants
CPT/HCPCS: 0223U; 36415; 71045; 80048; 80053; 82948; 85025; 85610; 85730; 86704; 86706; 87340; 90962; 94799; 96372; 99252; 99284; J1817; J7030; J7799

== ENCOUNTER 2024-05-09 15:14 | Inpatient (IN) | payer MEDICARE, BC ==
[~2024-05-09] VITALS: Ht 160 cm; Wt 71.7 kg
[2024-05-09] VITALS (8 sets, daily range): BP systolic 150–169; BP diastolic 58–90; PULSE 52–61; RESP 14–20; TEMP 98.6; O2SAT 88–98
[~2024-05-09 15:14] MED LIST changes: +AMIODARONE HCL200 MG PO; +BUMETANIDE1 MG PO
[2024-05-09 18:28] LABS: BASOPHILS % 0.5 % (0.0-1.0); EOSINOPHILS % 0.3 % (0.0-6.0); HEMATOCRIT 34.4 % (34.2-44.1); HEMOGLOBIN 11.4 g/dL (12.0-16.0); LYMPHOCYTES # (AUTO) 0.4 (1.0-3.2); MEAN CORPUSCULAR HGB CONC 33.1 g/dL (31-35); MEAN CORPUSCULAR VOLUME 90.5 fL (81-99); MONOCYTES # (AUTO) 0.6 (0.2-0.8); MONOCYTES % 16.5 % (4.4-11.3); NEUTROPHILS # (AUTO) 2.7 (2.1-6.9); NEUTROPHILS % 70.4 % (38.7-80.0); PLATELET COUNT 164 x10e3/uL (140-360); WHITE BLOOD COUNT 3.81 x10e3/uL (4.8-10.8)
[2024-05-09 18:44] LABS: ALBUMIN 3.7 g/dL (3.5-5.0); ALBUMIN/GLOBULIN RATIO 1.1 (0.8-2.0); ANION GAP 26.7 mmol/L (8-16); BILIRUBIN,TOTAL 0.8 mg/dL (0.2-1.2); CALCIUM 9.9 mg/dL (8.4-10.2); CREATININE, SERUM 7.12 mg/dL (0.57-1.11); POTASSIUM 4.7 mmol/L (3.5-5.1)
[2024-05-09 19:08] LABS: TROPONIN I 0.152 ng/mL (0-0.300)
[2024-05-09] MEDS ORDERED: IOPAMIDOL 370 MG/ML 100 ML INFUS..BTL INJ ONE (19:16)
[2024-05-09] MEDS: HYDRALAZINE HCL 20 MG/ML VIAL IV STA (19:17)
[2024-05-09] MEDS: SODIUM CHLORIDE 0.9% 1000ML 500 ML IV STA (19:18)
[2024-05-09] MEDS: ONDANSETRON HCL INJ 2MG/ML 2ML 2 MG/ML VIAL IV STA (19:19)
[2024-05-09] MEDS: Morphine 4mg INJECTION 4 MG/ML INJ IV ONE (19:20)
[2024-05-09] MEDS: NICARDIPINE 20MG/200ML PREMIX 200 ML IV STA (20:07)
[2024-05-10] VITALS (63 sets, daily range): BP systolic 114–172; BP diastolic 49–99; PULSE 51–64; RESP 13–30; TEMP 97–98.7; O2SAT 85–100
[2024-05-10] MEDS: NICARDIPINE 20MG/200ML PREMIX 200 ML IV SCH (00:14)
[2024-05-10] MEDS ORDERED: GUAIFENESIN/DEXTROMETHORPHAN LIQD 5 ML UDC PO PRN (01:00)
[2024-05-10] MEDS: NICARDIPINE 20MG/200ML PREMIX 200 ML ONE (02:17)
[2024-05-10] MEDS: IPRATROPIUM BROMIDE 0.02% 2.5 ML NEB NEB SCH (03:00)
[2024-05-10 06:30] LABS: BASOPHILS % 0.4 % (0.0-1.0); EOSINOPHILS # (AUTO) 0.2 (0.0-0.4); EOSINOPHILS % 3.1 % (0.0-6.0); HEMATOCRIT 31.2 % (34.2-44.1); HEMOGLOBIN 10.1 g/dL (12.0-16.0); LYMPHOCYTES # (AUTO) 0.4 (1.0-3.2); LYMPHOCYTES % 8.1 % (18.0-39.1); MEAN CORPUSCULAR HEMOGLOBIN 29.5 pg (28-32); MEAN CORPUSCULAR HGB CONC 32.4 g/dL (31-35); MEAN CORPUSCULAR VOLUME 91.2 fL (81-99); MONOCYTES # (AUTO) 0.8 (0.2-0.8); MONOCYTES % 15.7 % (4.4-11.3); NEUTROPHILS # (AUTO) 3.5 (2.1-6.9); NEUTROPHILS % 72.1 % (38.7-80.0); PLATELET COUNT 143 x10e3/uL (140-360); RED BLOOD COUNT 3.42 x10e6/uL (3.6-5.1); RED CELL DISTRIBUTION WIDTH 14.2 % (11.7-14.4); WHITE BLOOD COUNT 4.79 x10e3/uL (4.8-10.8)
[2024-05-10 07:03] LABS: ALBUMIN 3.2 g/dL (3.5-5.0); ALBUMIN/GLOBULIN RATIO 1.1 (0.8-2.0); ANION GAP 24.3 mmol/L (8-16); BILIRUBIN,TOTAL 0.8 mg/dL (0.2-1.2); CALCIUM 9.1 mg/dL (8.4-10.2); CREATININE, SERUM 7.45 mg/dL (0.57-1.11); POTASSIUM 4.3 mmol/L (3.5-5.1)
[2024-05-10 07:35] LABS: TROPONIN I 0.155 ng/mL (0-0.300)
[2024-05-10] MEDS: FOLIC ACID/CYANOCOB/PYRIDOXINE TAB PO SCH (08:05)
[2024-05-10] MEDS: NIFEDIPINE CR 30 MG TAB PO SCH (08:05)
[2024-05-10] MEDS: BUMETANIDE 1 MG TAB PO SCH (08:05)
[2024-05-10] MEDS: LABETALOL HCL 200 MG TAB PO SCH (08:06)
[2024-05-10] MEDS: AMIODARONE HCL 200 MG TAB PO SCH (08:06)
[2024-05-10 10:09] LABS: INR 1.24; PROTHROMBIN TIME 16.4 seconds (11.9-14.5)
[2024-05-10 10:10] LABS: PARTIAL THROMBOPLASTIN TIME 35.6 seconds (23.8-35.5)
[2024-05-10] MEDS: SODIUM CHLORIDE 0.9% 1000ML 2,000 ML ONE (12:54)
[2024-05-10 14:50] LABS: TROPONIN I 0.143 ng/mL (0-0.300)
[2024-05-10] MEDS: Morphine 4mg INJECTION 4 MG/ML INJ IV PRN (14:51)
[2024-05-10] MEDS: ONDANSETRON HCL INJ 2MG/ML 2ML 2 MG/ML VIAL IV PRN (14:54)
[2024-05-10 16:12] LABS: HEPATITIS B SURFACE AG (P) Non Reactive
[2024-05-10] MEDS: HYDRALAZINE HCL 20 MG/ML VIAL IV PRN (16:25)
[2024-05-11] VITALS (24 sets, daily range): BP systolic 88–154; BP diastolic 48–105; PULSE 57–95; RESP 13–22; TEMP 97.4–97.9; O2SAT 85–98
[2024-05-11 05:16] LABS: HEPATITIS B CORE AB TOTAL Negative (Negative)
[2024-05-11 08:10] LABS: BASOPHILS % 0.4 % (0.0-1.0); EOSINOPHILS # (AUTO) 0.2 (0.0-0.4); EOSINOPHILS % 3.2 % (0.0-6.0); HEMATOCRIT 31.3 % (34.2-44.1); HEMOGLOBIN 10.2 g/dL (12.0-16.0); LYMPHOCYTES # (AUTO) 0.4 (1.0-3.2); LYMPHOCYTES % 8.7 % (18.0-39.1); MEAN CORPUSCULAR HGB CONC 32.6 g/dL (31-35); MEAN CORPUSCULAR VOLUME 92.1 fL (81-99); MONOCYTES # (AUTO) 0.6 (0.2-0.8); MONOCYTES % 12.1 % (4.4-11.3); NEUTROPHILS # (AUTO) 3.5 (2.1-6.9); PLATELET COUNT 150 x10e3/uL (140-360); RED CELL DISTRIBUTION WIDTH 14.2 % (11.7-14.4)
[2024-05-11 08:32] LABS: ANION GAP 20.3 mmol/L (8-16); CALCIUM 9.5 mg/dL (8.4-10.2); CREATININE, SERUM 4.94 mg/dL (0.57-1.11); POTASSIUM 4.3 mmol/L (3.5-5.1)
[2024-05-12] VITALS (13 sets, daily range): BP systolic 147–188; BP diastolic 49–88; PULSE 59–69; RESP 17–20; TEMP 97.5–98.1; O2SAT 93–99
[2024-05-12 05:49] LABS: BASOPHILS % 0.7 % (0.0-1.0); EOSINOPHILS # (AUTO) 0.1 (0.0-0.4); EOSINOPHILS % 2.9 % (0.0-6.0); HEMATOCRIT 33.5 % (34.2-44.1); HEMOGLOBIN 10.8 g/dL (12.0-16.0); LYMPHOCYTES # (AUTO) 0.6 (1.0-3.2); LYMPHOCYTES % 12.3 % (18.0-39.1); MEAN CORPUSCULAR HEMOGLOBIN 29.7 pg (28-32); MEAN CORPUSCULAR HGB CONC 32.2 g/dL (31-35); MONOCYTES # (AUTO) 0.6 (0.2-0.8); MONOCYTES % 13.6 % (4.4-11.3); NEUTROPHILS # (AUTO) 3.1 (2.1-6.9); NEUTROPHILS % 69.2 % (38.7-80.0); PLATELET COUNT 148 x10e3/uL (140-360); RED BLOOD COUNT 3.64 x10e6/uL (3.6-5.1); RED CELL DISTRIBUTION WIDTH 14.3 % (11.7-14.4); WHITE BLOOD COUNT 4.48 x10e3/uL (4.8-10.8)
[2024-05-12 06:16] LABS: ANION GAP 22.3 mmol/L (8-16); CALCIUM 9.3 mg/dL (8.4-10.2); CREATININE, SERUM 6.66 mg/dL (0.57-1.11); POTASSIUM 4.3 mmol/L (3.5-5.1)
[2024-05-12] MEDS: ACETAMINOPHEN 325 MG TAB PO PRN (22:28)
[2024-05-13] VITALS (13 sets, daily range): BP systolic 142–187; BP diastolic 49–65; PULSE 50–65; RESP 14–22; TEMP 97.6–98.3; O2SAT 90–100
[2024-05-13 06:22] LABS: ALBUMIN 3.4 g/dL (3.5-5.0); ALBUMIN/GLOBULIN RATIO 1.1 (0.8-2.0); CALCIUM 9.8 mg/dL (8.4-10.2); CREATININE, SERUM 5.76 mg/dL (0.57-1.11); TOTAL PROTEIN 6.4 g/dL (6.5-8.1)
[2024-05-13] MEDS: PANTOPRAZOLE SOD 40 MG TABEC PO SCH (08:42)
[2024-05-13] MEDS: DOCUSATE SODIUM 100 MG CAP PO PRN (21:14)
[2024-05-14] VITALS (13 sets, daily range): BP systolic 137–167; BP diastolic 50–67; PULSE 54–62; RESP 18–21; TEMP 97.7–98.8; O2SAT 94–100
[2024-05-15] VITALS (15 sets, daily range): BP systolic 112–183; BP diastolic 49–97; PULSE 52–64; RESP 17–20; TEMP 97.7–98.8; O2SAT 92–100
[2024-05-15 06:31] LABS: ANION GAP 21.5 mmol/L (8-16); CREATININE, SERUM 9.21 mg/dL (0.57-1.11); POTASSIUM 4.5 mmol/L (3.5-5.1)
[2024-05-15] MEDS ORDERED: SODIUM CHLORIDE 0.9% 1000ML 2,000 ML IV PRN (08:30)
[2024-05-16] VITALS (12 sets, daily range): BP systolic 127–187; BP diastolic 46–67; PULSE 62–90; RESP 14–22; TEMP 98–99.4; O2SAT 91–96
[2024-05-17] VITALS (11 sets, daily range): BP systolic 125–158; BP diastolic 42–80; PULSE 57–90; RESP 17–22; TEMP 97.6–98.8; O2SAT 92–98
[2024-05-17 05:53] LABS: BASOPHILS % 0.6 % (0.0-1.0); EOSINOPHILS # (AUTO) 0.1 (0.0-0.4); EOSINOPHILS % 1.4 % (0.0-6.0); HEMATOCRIT 38.1 % (34.2-44.1); HEMOGLOBIN 11.8 g/dL (12.0-16.0); LYMPHOCYTES # (AUTO) 0.8 (1.0-3.2); LYMPHOCYTES % 16.6 % (18.0-39.1); MEAN CORPUSCULAR VOLUME 93.6 fL (81-99); MONOCYTES # (AUTO) 1.3 (0.2-0.8); MONOCYTES % 25.5 % (4.4-11.3); NEUTROPHILS # (AUTO) 2.6 (2.1-6.9); NEUTROPHILS % 51.1 % (38.7-80.0); PLATELET COUNT 157 x10e3/uL (140-360); RED BLOOD COUNT 4.07 x10e6/uL (3.6-5.1); RED CELL DISTRIBUTION WIDTH 14.2 % (11.7-14.4); WHITE BLOOD COUNT 5.01 x10e3/uL (4.8-10.8)
[2024-05-17 06:44] LABS: ANION GAP 22.5 mmol/L (8-16); CALCIUM 11.6 mg/dL (8.4-10.2); CREATININE, SERUM 7.67 mg/dL (0.57-1.11); MAGNESIUM 2.2 MG/DL (1.3-2.1); POTASSIUM 4.5 mmol/L (3.5-5.1)
[2024-05-17] MEDS: SODIUM CHLORIDE 0.9% 1000ML 1,000 ML ONE (07:59)
[2024-05-17] MEDS: SODIUM CHLORIDE 0.9% 1000ML 2,000 ML ONE (07:59)
[2024-05-17] MEDS ORDERED: ALBUMIN 25% 12.5GM 0.25 GM/ML BTL IV PRN (08:00)
[2024-05-17] MEDS ORDERED: SODIUM CHLORIDE 0.9% 1000ML 2,000 ML IV PRN (08:00)
[2024-05-17 11:25] LABS: BLAST CELLS % MANUAL 1; EOSINOPHILS % (MANUAL) 3 % (0-7); LYMPHOCYTES % (MANUAL) 18 % (19-48); METAMYELOCYTES % (MANUAL) 1 % (0-0); MONOCYTES % (MANUAL) 17 % (3.4-9.0); MYELOCYTES % (MANUAL) 4 % (0-0); NEUTROPHILS % (MANUAL) 53 % (40-74); PLATELET ESTIMATE ADEQUATE; PLATELET MORPHOLOGY COMMENT NORMAL; PROMYELOCYTES % (MANUAL) 3 % (0-0); RBC MORPHOLOGY COMMENT NORMAL
[2024-05-18] VITALS (9 sets, daily range): BP systolic 148–182; BP diastolic 41–56; PULSE 57–69; RESP 17–19; TEMP 98–98.4; O2SAT 92–100
[2024-05-18] MEDS: MELATONIN 3 MG TAB PO PRN (03:11)
== END 2024-05-18 13:16 | DRG 304 ==
LOC: ER 17:27 → ERHOLD 21:13 → ICU 22:33 → MED/SURG2 05-11 16:07
PROVIDERS: ADMIT Family Medicine; ATTEND Family Medicine
PROC: 5A1D70Z Performance of Urinary Filtration, Intermittent, Less than 6 Hours Per Day (ICD-10-PCS; principal; 2024-05-10)
PROC: 5A1D70Z Performance of Urinary Filtration, Intermittent, Less than 6 Hours Per Day (ICD-10-PCS; 2024-05-11)
DX: I16.1 Hypertensive emergency (principal); N18.6 End stage renal disease; C83.31 Diffuse large B-cell lymphoma, lymph nodes of head, face, and neck; Z99.2 Dependence on renal dialysis; I13.2 Hypertensive heart and chronic kidney disease with heart failure and with stage 5 chronic kidney disease, or end stage renal disease; E11.22 Type 2 diabetes mellitus with diabetic chronic kidney disease; I50.9 Heart failure, unspecified; E11.65 Type 2 diabetes mellitus with hyperglycemia; Z79.84 Long term (current) use of oral hypoglycemic drugs; G89.3 Neoplasm related pain (acute) (chronic); M54.50 Low back pain, unspecified; R11.2 Nausea with vomiting, unspecified; R59.0 Localized enlarged lymph nodes; R09.02 Hypoxemia; K21.00 Gastro-esophageal reflux disease with esophagitis, without bleeding; I25.10 Atherosclerotic heart disease of native coronary artery without angina pectoris; I35.0 Nonrheumatic aortic (valve) stenosis; I48.0 Paroxysmal atrial fibrillation; I71.43 Infrarenal abdominal aortic aneurysm, without rupture; Z79.01 Long term (current) use of anticoagulants; R53.81 Other malaise; M25.511 Pain in right shoulder; D63.8 Anemia in other chronic diseases classified elsewhere; E78.5 Hyperlipidemia, unspecified; R91.8 Other nonspecific abnormal finding of lung field; Z11.52 Encounter for screening for COVID-19; Z79.899 Other long term (current) drug therapy
CPT/HCPCS: 36415; 71045; 71046; 74177; 80048; 80053; 82550; 82948; 83690; 83735; 84484; 85025; 85610; 85730; 86704; 86705; 86706; 87340; 93005; 94640; 94799; 99284; J0360; J2270; J2405; J7030; Q9967; U0002